=== PATIENT | female | born 1940 | race Caucasian/White ===

== ENCOUNTER 2019-06-04 13:44 | Outpatient (RCR) | payer MEDICARE, SELFPAY | END 2019-07-02 00:01 | LOC: SPT 13:44 | PROVIDERS: Family Provider Family Medicine; Visit Provider Specialist | DX: M75.111 Incomplete rotator cuff tear or rupture of right shoulder, not specified as traumatic (principal) | CPT/HCPCS: 97110 ×3; 97161 ==

== ENCOUNTER 2019-07-03 06:00 | Outpatient (RCR) | payer MEDICARE, SELFPAY | END 2019-07-03 23:00 | disposition home or self-care (01) | LOC: SPT 06:00 | PROVIDERS: Family Provider Family Medicine; PCP Family Medicine; Visit Provider Specialist | DX: M75.101 Unspecified rotator cuff tear or rupture of right shoulder, not specified as traumatic (principal) ==

== ENCOUNTER 2020-05-22 14:15 | Outpatient (CLI) | payer MEDICARE, SELFPAY ==
--- NOTE | 2020-05-22 14:24 | MM_ITS ---
WS: [id number] BILATERAL SCREENING DIGITAL MAMMOGRAM WITH CAD HISTORY: SCREENING COMPARISON: 05/07/2019 and 04/24/2018 Bilateral CC and MLO views submitted. Computer aided detection analyzed. Breast composition: There are scattered areas of fibroglandular density. No suspicious masses, microc alcifications or architectural distortion. Benign calcifications in each breast. MM/[place] [id number] IMPRESSION: BI-RADS: 2-Benign FOLLOW UP: 1 Year Follow-up
== END 2020-05-22 14:16 | disposition home or self-care (01) ==
PROVIDERS: PCP Family Medicine; Visit Provider Family Medicine
DX: Z12.31 Encounter for screening mammogram for malignant neoplasm of breast (principal)
CPT/HCPCS: 77067

== ENCOUNTER 2021-06-09 09:29 | Outpatient (CLI) | payer MEDICARE, SELFPAY ==
--- NOTE | 2021-06-09 09:49 | XR_ITS ---
WS: [id number] Exam: XR DEXA axial skeleton* [id number] Date/Time of Exam: 06/09/2021 9:49 AM Reason For Exam: ASYMPTOMATIC MENOPAUSAL STATE DEXA BONE DENSITOMETRY [place] The L1-L4 bone mineral density measures 1.212 g/cm2. This corresponds to a T score of 0.3 and Z score of 1.8. Left femoral neck bone mineral density measures 1.020 g/cm2. This corresponds to T score of 0.1 and Z score of 1.9. Right femoral neck bone mineral density measures 1.034 g/cm2. This corresponds to a T score of 0.2 an d Z score of 2.0. Mean femoral neck bone mineral density measures 1.027 g/cm2. This corresponds to a T score of 0.2 and Z score of 1.9. XR/XR DEXA axial skeleton* [id number] IMPRESSION: Bone mineral density lies in the normal range. No osteopenia is observed at th is time. Refer to detailed summary.
--- NOTE | 2021-06-09 10:40 | MM_ITS ---
WS: [id number] BILATERAL DIGITAL SCREENING MAMMOGRAPHY WITH CAD CLINICAL INFORMATION: SCREENING HISTORY: Screening mammogram. No current complaints. COMPARISON: May 22, 2020 TECHNIQUE: Bilateral CC and MLO views. FINDINGS: Scattered fibroglandular densities bilaterally. A few punctate calcifications. Vascular calcification . No suspicious focal mass, asymmetry, calcifications, or architectural distortion. No evidence of ma lignancy. MM/[place] [id number] IMPRESSION: BI-RADS: 2-Benign FOLLOW UP: 1 Year Follow-up Recommend return to annual screening mammography.
== END 2021-06-09 09:30 | disposition home or self-care (01) ==
PROVIDERS: PCP Family Medicine; Visit Provider Family Medicine
DX: Z12.31 Encounter for screening mammogram for malignant neoplasm of breast (principal); Z78.0 Asymptomatic menopausal state
CPT/HCPCS: 77067; 77080

== ENCOUNTER 2022-06-10 09:30 | Outpatient (CLI) | payer MEDICARE, SELFPAY ==
--- NOTE | 2022-06-10 09:40 | MM_ITS ---
WS: [id number] BILATERAL SCREENING DIGITAL TOMOSYNTHESIS MAMMOGRAM WITH CAD HISTORY: SCREENING COMPARISON: 06/09/2021, 05/22/2020 Bilateral CC and MLO views with tomosynthesis and synthetic mammography submitted. Computer aided det ection analyzed. Breast composition: There are scattered areas of fibroglandular density. No suspicious masses, microc alcifications or architectural distortion. Benign calcifications in each breast. MM/[place] [id number] IMPRESSION: BI-RADS: 2-Benign FOLLOW UP: 1 Year Follow-up
== END 2022-06-10 09:31 | disposition home or self-care (01) ==
LOC: RAD 09:32
PROVIDERS: PCP Family Medicine; Visit Provider Family Medicine
DX: Z12.31 Encounter for screening mammogram for malignant neoplasm of breast (principal)
CPT/HCPCS: 77063; 77067

== ENCOUNTER 2023-06-12 12:54 | Outpatient (CLI) | payer MEDICARE, SELFPAY ==
--- NOTE | 2023-06-12 13:05 | MM_ITS ---
WS: [id number] VIEWS: MLO and CC views both breasts. 3D digital tomosynthesis is also included in this exam. Comparison made with prior exam of 10/21/2010, 03/14/2012, 05/29/2013, 10/12/2013, 06/16/2015, 7, 03/25/2018, 05/07/2019, 05/22/2020, 06/09/2021, 06/10/2022.. Findings: There was no sign of mass, architectural distortion or suspicious calcification in either breast. The breasts are almost entirely fatty Impression: MM/[place] [id number] BI-RADS: 1-Negative FOLLOW-UP: 1 Year Follow-up This mammogram was also analyzed by the Computer Aided Detection System R2 Imag e Shirt Line Operator.
== END 2023-06-12 12:55 | disposition home or self-care (01) ==
LOC: RAD 12:55
PROVIDERS: PCP Family Medicine; Visit Provider Family Medicine
DX: Z12.31 Encounter for screening mammogram for malignant neoplasm of breast (principal)
CPT/HCPCS: 77063; 77067

== ENCOUNTER 2023-08-03 15:32 | Emergency (ER) | payer MEDICARE, SELFPAY ==
[2023-08-03 15:34] VITALS: BP 188/96; PULSE 73; RESP 18; TEMP 36.8; O2SAT 97; BMI 36.3
--- NOTE | 2023-08-03 15:38 | CTR_ITS ---
PROCEDURE INFORMATION: Exam: CT Maxillofacial Without Contrast Exam date and time: 08/03/2023 3:47 PM Age: 83 years old Clinical indication: Injury or trauma; Fall; Blunt trauma (contusions or hematomas) TECHNIQUE: Imaging protocol: Computed tomography of the face without contrast. Radiation optimization: All CT scans at this facility use at least one of these dose optimization techniques: automated exposure control; mA and/or kV adjustment per patient size (includes targeted exams where dose is matched to clinical indication); or iterative reconstruction. COMPARISON: CT head wo con* [id number] 08/03/2023 3:47 PM RADIATION DOSE METRICS: Total DLP (mGy-cm): 548 FINDINGS: Orbital cavities: There are bilateral intraocular lens implants. Bones/joints: No acute fractures. There are mild degenerative changes at articulation of anterior arch of C1 and dens of C2. Degenerative disc and facet disease of visualized cervical spine is present. Paranasal sinuses: Mild, focal mucosal thickening at right posterior and lateral maxillary sinus suggests chronic sinusitis. Soft tissues: Unremarkable. Vasculature: Bilateral cavernous carotid and vertebral arteries are moderately calcified. Brain: Visualized ventricles along with cerebral sulci are mildly enlarged, reflecting cerebral volume loss. Mild, ill-defined, low attenuation areas at bilateral periventricular and to lesser extent, subcortical white matter suggest microvascular ischemic changes. No intracranial hemorrhage. CT/CT facial bones wo con* [id number] IMPRESSION: 1. No acute fractures. 2. Mild cerebral volume loss. Mild hypodensities at bilateral periventricular and to lesser extent, subcortical white matter, suggesting microvascular ischemic changes. 3. Mild, chronic, right maxillary sinusitis. 4. Bilateral intraocular lens implants. 5. Atherosclerosis.
--- NOTE | 2023-08-03 15:38 | CTR_ITS ---
PROCEDURE INFORMATION: Exam: CT Head Without Contrast Exam date and time: 08/03/2023 3:47 PM Age: 83 years old Clinical indication: Injury or trauma; Fall; Blunt trauma (contusions or hematomas) TECHNIQUE: Imaging protocol: Computed tomography of the head without contrast. Radiation optimization: All CT scans at this facility use at least one of these dose optimization techniques: automated exposure control; mA and/or kV adjustment per patient size (includes targeted exams where dose is matched to clinical indication); or iterative reconstruction. COMPARISON: CT facial bones wo con* [id number] 08/03/2023 3:47 PM RADIATION DOSE METRICS: Total DLP (mGy-cm): 1105 FINDINGS: Brain: Mild, ill-defined, low attenuation areas at bilateral periventricular and to lesser extent, subcortical white matter suggest microvascular ischemic changes. No intracranial hemorrhage. Cerebral ventricles: Ventricles along with cerebral sulci are mildly enlarged, reflecting cerebral volume loss. Paranasal sinuses: Mild, focal mucosal thickening at right posterior maxillary sinus suggests chronic sinusitis. Mastoid air cells: Visualized mastoid air cells are well aerated. Orbital cavities: There are bilateral intraocular lens implants. Bones/joints: Unremarkable. No acute fracture. Soft tissues: Unremarkable. Vasculature: Bilateral cavernous carotid and vertebral arteries are moderately calcified. CT/CT head wo con* [id number] IMPRESSION: 1. Mild cerebral volume loss. Mild hypodensities at bilateral periventricular and to lesser extent, subcortical white matter, suggesting microvascular ischemic changes. 2. Mild, chronic, right maxillary sinusitis. 3. Bilateral intraocular lens implants. 4. Atherosclerosis.
--- NOTE | 2023-08-03 15:38 | CTR_ITS ---
PROCEDURE INFORMATION: Exam: CT Cervical Spine Without Contrast Exam date and time: 08/03/2023 3:47 PM Age: 83 years old Clinical indication: Injury or trauma; Fall TECHNIQUE: Imaging protocol: Computed tomography of the cervical spine without contrast. Radiation optimization: All CT scans at this facility use at least one of these dose optimization techniques: automated exposure control; mA and/or kV adjustment per patient size (includes targeted exams where dose is matched to clinical indication); or iterative reconstruction. COMPARISON: CT facial bones wo con* [id number] 08/03/2023 3:47 PM RADIATION DOSE METRICS: Total DLP (mGy-cm): 200 FINDINGS: Bones/joints: There is loss of cervical lordosis, with mild gentle kyphosis centered at approximately C5. No acute fractures or subluxations to T3/4. Concavities at several endplates of cervical vertebrae, one of which at superior endplate of C7 contains gas, suggest incidental Schmorl's nodes. < 4 mm, oval, well-defined, gas-containing lesion right lamina of T4 vertebra suggests incidental pneumatocyst. There are mild degenerative changes at articulation of anterior arch of C1 and dens of C2. At C2/3, there are mild vertebral osteophytes, without significant canal or neural foraminal narrowing. At C3/4, there is mild posterior disc protrusion/osteophyte complex and mild right facet hypertrophy, without significant canal, but mild bilateral neural foraminal narrowing. At C4/5, there is mild posterior disc protrusion/osteophyte complex and severe right facet hypertrophy, without significant canal, but moderate-severe right neural foraminal narrowing. At C5/6, there is mild posterior disc protrusion/osteophyte complex and moderate right and mild left facet hypertrophy, with mild canal and mild right and mild-moderate left neural foraminal narrowing. At C6/7, there is mild posterior disc protrusion/osteophyte complex and mild bilateral facet hypertrophy, without significant canal or neural foraminal narrowing. At C7/T1, there are vertebral osteophytes and moderate left > right facet hypertrophy, without significant canal or neural foraminal narrowing. Mild degenerative disc and facet disease of visualized upper thoracic spine is present, without significant canal or neural foraminal narrowing. 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 Trachea: Mild calcification within cartilage at wall of right proximal trachea at level of C7/T1 is of no clinical significance. Lungs: Apicoposterior left upper lobe contains a < 4 mm, noncalcified nodule. Mild-moderate, irregular reticular opacities at bilateral apices suggest scars. Thyroid: Right lobe of thyroid contains a < 1.6 cm, low attenuation (Hounsfield units 46) nodule. Vasculature: Left carotid bulb and proximal internal and external carotid arteries and bilateral vertebral arteries are moderately calcified. Left proximal common carotid, right proximal internal carotid, and bilateral subclavian arteries are mildly calcified. Soft tissues: Unremarkable. CT/CT cervical spin wo con* [id number] IMPRESSION: 1. No acute fractures or subluxations to T3/4. Degenerative changes at several levels of cervical spine and upper thoracic spine as described above. 2. < 4 mm, noncalcified nodule apicoposterior left upper lobe. For patients at low risk (minimal or absent history of smoking and of other known risk factors), no routine follow-up is indicated. For patients at high risk (history of smoking or of other known risk factors), consider optional CT Chest at 12 months. (Reference: Moise) 3. <1.6 cm nodule right lobe of thyroid. Follow-up non-emergent thyroid ultrasound is recommended. 4. Atherosclerosis. References: Moise H, et al. Guidelines for Management of Incidental Pulmonary Nodules Detected on CT Images: From the Fleischner Society 2017. Radiology. 2017;284(1):228-243. COMMENTS: Consistent with the [employer] [employer]'s Incidental Findings Committee white paper (J Am Shanna Radiol 2015): In patients aged 35 years and older with an incidental thyroid nodule equal to or greater than 1.[address], MRI or extrathyroidal US, further evaluation with dedicated thyroid US is recommended for patients with normal life expectancy and without comorbidities. For smaller nodules without suspicious features, no further evaluation or follow up is recommended.
--- NOTE | 2023-08-03 15:38 | XRR_ITS ---
PROCEDURE INFORMATION: Exam: XR Left Tibia and Fibula Exam date and time: 08/03/2023 4:12 PM Age: 83 years old Clinical indication: Injury or trauma; Fall; Other: Unknown TECHNIQUE: Imaging protocol: Radiologic exam of the left tibia and fibula. Views: 2 views. COMPARISON: Left ankle radiographs . FINDINGS: Medial malleolus is incompletely visualized on AP view, but was within region filmed on ankle radiographs. Bones/joints: Normal alignment. No acute fractures. Moderate osteoarthritis of navicular-cuneiform joints, as evidenced by dorsal osteophytes, is present. There is mild spurring at anterior aspect of distal tibia. Moderate-large and moderate traction osteophytes at posterior > plantar aspects of calcaneus are evident. Soft tissues: < 3 mm, lucent-centered calcification within soft tissues at distal murrell likely reflects phlebolith. XR/XR tibia fibula LT 2V [id number] IMPRESSION: No acute fractures.
--- NOTE | 2023-08-03 15:38 | XRR_ITS ---
PROCEDURE INFORMATION: Exam: XR Right Shoulder Exam date and time: 08/03/2023 4:22 PM Age: 83 years old Clinical indication: Injury or trauma; Fall; Other: Unknown TECHNIQUE: Imaging protocol: Radiologic exam of the right shoulder. Views: 2 or more views. COMPARISON: CT cervical spin wo con* [id number] 08/03/2023 3:47 PM FINDINGS: Bones/joints: There is mild right mid thoracic scoliosis. No acute fractures or dislocations. There is mild osteoarthritis of glenohumeral joint, as evidenced by small osteophytes. Degenerative disc and facet disease of several levels of cervical spine and degenerative disc disease of mid-lower thoracic spine are partially visualized. Soft tissues: Normal. XR/XR shoulder RT min 2V* [id number] IMPRESSION: No acute fractures or dislocations.
--- NOTE | 2023-08-03 15:38 | XRR_ITS ---
PROCEDURE INFORMATION: Exam: XR Left Ankle Exam date and time: 08/03/2023 4:12 PM Age: 83 years old Clinical indication: Injury or trauma; Fall; Other: Unknown TECHNIQUE: Imaging protocol: Radiologic exam of the left ankle. Views: 3 or more views. COMPARISON: CR (LOW EXM, ) 08/03/2023 4:12 PM FINDINGS: Bones/joints: Normal alignment. No acute fractures or dislocations. Moderate osteoarthritis of navicular-cuneiform joints, as evidenced by dorsal osteophytes, is present. There is mild spurring at anterior aspect of distal tibia and inferior aspect of medial malleolus. Moderate-large and moderate traction osteophytes at posterior > plantar aspects of calcaneus are evident. Soft tissues: < 3 mm, lucent-centered calcification within soft tissues at distal murrell likely reflects phlebolith. Soft tissues at medial malleolus are mildly swollen. XR/XR ankle LT min 3V* [id number] IMPRESSION: No acute fractures or dislocations.
--- NOTE | 2023-08-03 15:40 | W.ED.FALL ---
HPI - Fall General: Chief Complaint: Fall Stated Complaint: fall Time Seen by Provider: 08/03/23 15:34 Source: patient Mode of arrival: ambulatory Limitations: no limitations History of Present Illness: 83-year-old female who came into the ER to see her who is a patient here she had tripped and fell in the waiting room she hit her head she complains of nose pain along with head and neck pain right shoulder pain and left murrell pain. She denies any loss of consciousness patient is currently in a c-collar she rates her pain a 5 out of 10. Associated symptoms-after fall: Reports headache(s) and neck pain; Denies abdominal pain or chest pain Review of Systems Const: Denies: fever(s), chills, body aches or change in appetite Eyes: Denies: blurry vision ENMT: Denies: throat pain or dental pain Card: Denies: chest pain Resp: Denies: dyspnea GI: Denies: abdominal pain, nausea, vomiting or diarrhea Musc: Reports: neck pain and extremity pain; Denies: back pain Neuro: Reports: headache(s) PFSH ED PFSH: Surgical History H/O arthroscopy of left knee Family History Denies family history of Diabetes Cancer Hypertension Stroke Social History Smoking and tobacco/nicotine status: never used tobacco/nicotine Alcohol intake: never Substance/Drug Use: never Physical Exam Const: COMMON NORMALS: no acute distress, patient oriented x3 and healthy appearing HENMT: OTHER: Abrasion noted to bridge of nose Eye: COMMON NORMALS: Equal, round and reactive pupils present and EOMs intact bilaterally PUPIL: Yes Equal, round and reactive pupils present Neck/C-Spine: OTHER: In c-collar Chest: COMMONS NORMALS: normal inspection of the chest and normal palpation of entire chest wall Resp: COMMON NORMALS: normal respiratory effort GI: COMMON NORMALS: Normal to inspection, nondistended, normoactive bowel sounds present, Soft to palpation, non-tender and no masses PALPATION: Yes Soft to palpation Extremity: COMMON NORMALS: full ROM NARRATIVE EXTREMITY EXAM: Tenderness over left shoulder along with tenderness to the left distal leg Neuro: COMMON NORMALS: patient oriented x3, moves all extremities and no focal motor deficits Psych: COMMON NORMALS: mental status grossly normal, Normal thought process present and cooperative THOUGHT PROCESS: Normal thought process present Skin: COMMON NORMALS: no rashes or lesions noted and no wounds GENERAL SKIN EXAM: no rashes or lesions noted Course Vital Signs: Vital signs: Vital Signs Temperature 98.2 F 08/03/23 15:34 Pulse Rate 72 08/03/23 17:31 Respiratory Rate 16 08/03/23 17:31 Blood Pressure 181/86 08/03/23 17:31 Pulse Oximetry 98 08/03/23 17:31 Oxygen Delivery Me thod Room Air 08/03/23 16:37 MDM - Fall Medical Decision Making Patient presents here with fall her imaging here is all normal she is ambulatory here she stable for discharge she is follow-up with PCP and return if worsening. Medical Records I reviewed the patient's medical records. Lab Data I reviewed the patient's lab results. Radiology Impressions Ankle X-Ray 08/03/23 15:38 IMPRESSION: No acute fractures or dislocations. Cervical Spine CT 08/03/23 15:38 IMPRESSION: 1. No acute fractures or subluxations to T3/4. Degenerative changes at several levels of cervical spine and upper thoracic spine as described above. 2. < 4 mm, noncalcified nodule apicoposterior left upper lobe. For patients at low risk (minimal or absent history of smoking and of other known risk factors), no routine follow-up is indicated. For patients at high risk (history of smoking or of other known risk factors), consider optional CT Chest at 12 months. (Reference: Moise) 3. <1.6 cm nodule right lobe of thyroid. Follow-up non-emergent thyroid ultrasound is recommended. 4. Atherosclerosis. References: Moise H, et al. Guidelines for Management of Incidental Pulmonary Nodules Detected on CT Images: From the Fleischner Society 2017. Radiology. 2017;284(1):228-243. COMMENTS: Consistent with the [employer]'s Incidental Findings Committee white paper (J Am Shanna Radiol 2015): In patients aged 35 years and older with an incidental thyroid nodule equal to or greater than 1.[address], MRI or extrathyroidal US, further evaluation with dedicated thyroid US is recommended for patients with normal life expectancy and without comorbidities. For smaller nodules without suspicious features, no further evaluation or follow up is recommended. Face CT 08/03/23 15:38 IMPRESSION: 1. No acute fractures. 2. Mild cerebral volume loss. Mild hypodensities at bilateral periventricular and to lesser extent, subcortical white matter, suggesting microvascular ischemic changes. 3. Mild, chronic, right maxillary sinusitis. 4. Bilateral intraocular lens implants. 5. Atherosclerosis. Head CT 08/03/23 15:38 IMPRESSION: 1. Mild cerebral volume loss. Mild hypodensities at bilateral periventricular and to lesser extent, subcortical white matter, suggesting microvascular ischemic changes. 2. Mild, chronic, right maxillary sinusitis. 3. Bilateral intraocular lens implants. 4. Atherosclerosis. Shoulder X-Ray 08/03/23 15:38 IMPRESSION: No acute fractures or dislocations. Tibia/Fibula X-Ray 08/03/23 15:38 IMPRESSION: No acute fractures. Knee X-Ray 08/03/23 16:14 IMPRESSION: No acute findings. All radiology interpretation(s) finalized by discharge Discharge Plan Discharge Patient Disposition: Home Clinical Impression: Fall, CHI (closed head injury) Condition: Stable Prescriptions: No Action pravastatin 40 mg tablet 40 mg PO QPM citalopram 20 mg tablet See Rx Instructions .ROUTE .COMPLEX Rx Instructions: TAKE ONE-HALF TABLET BY MOUTH EVERY DAY FOR ONE WEEK, THEN increase TO ONE TABLET EVERY DAY (started taking med 08/02/23) lisinopril-hydrochlorothiazide 20-25 mg tablet 0.5 tab PO DAILY multivitamin Tablet 1 tab PO DAILY Discharge Orders: Discharge ED (Routine); Ordered 08/03/23 Ordered By: Tristan Melchor Referrals: Abiola Hopkins MD [Primary Care Provider] - 1-3 days Discharge Diet: Advance as tolerated Discharge Activity: Resume usual activity Patient Instructions: Head Injury (ED), Contusion in Adults (ED) Coding Level of Care Code ED Coupling Machine Operator for June Rosas
--- NOTE | 2023-08-03 16:14 | XRR_ITS ---
PROCEDURE INFORMATION: Exam: XR Right Knee Exam date and time: 08/03/2023 4:19 PM Age: 83 years old Clinical indication: Injury or trauma; Fall; Other: Unknown TECHNIQUE: Imaging protocol: Radiologic exam of the right knee. Views: 3 views. COMPARISON: No relevant prior studies available. FINDINGS: Bones/joints: Normal alignment. No acute fractures or dislocations. No bony abnormalities. Mild osteoarthritis of knee joint, as evidenced by small osteophytes, is present. Soft tissues: < 4 mm, lucent-centered calcification within soft tissues at anterior proximal murrell suggests phleboliths. XR/XR knee RT 3V* [id number] IMPRESSION: No acute findings.
[2023-08-03 16:37] VITALS: BP 186/108; PULSE 64; O2SAT 98
[2023-08-03] MEDS: HYDROcodone-acetaminophen 5-325 mg Tablet 1 TAB PO (17:04)
[2023-08-03 17:31] VITALS: BP 181/86; PULSE 72; RESP 16; O2SAT 98
== END 2023-08-03 17:31 | disposition home or self-care (01) ==
PROVIDERS: Emergency Provider Emergency Medicine; PCP Family Medicine
DX: S09.8XXA Other specified injuries of head, initial encounter (principal); S00.31XA Abrasion of nose, initial encounter; W01.0XXA Fall on same level from slipping, tripping and stumbling without subsequent striking against object, initial encounter; Y92.238 Other place in hospital as the place of occurrence of the external cause
CPT/HCPCS: 70450; 70486; 72125; 73030; 73562; 73590; 73610; 99284

== ENCOUNTER 2024-02-15 15:52 | Outpatient (CLI) | payer MEDICARE, SELFPAY ==
--- NOTE | 2024-02-15 15:59 | XR_ITS ---
WS: [id number] Examination: XR shoulder RT min 2V* [id number] Reason for Exam: Pain in R shoulder Date: February 15, 2024 Comparison: August 03, 2023 Findings: The bone density is diminished. There is no destruction There is no fracture or dislocation Chronic changes at the glenohumeral joint are identified with glenoid and humeral head osteophytes pr esent. XR/XR shoulder RT min 2V* [id number] Impression: Chronic changes are present without fracture or dislocation.
== END 2024-02-15 15:53 | disposition home or self-care (01) ==
LOC: RAD 15:55
PROVIDERS: PCP Family Medicine; Visit Provider Family Medicine
DX: M25.511 Pain in right shoulder (principal)
CPT/HCPCS: 73030

== ENCOUNTER 2024-04-02 13:52 | Outpatient (CLI) | payer MEDICARE, SELFPAY ==
--- NOTE | 2024-04-02 13:55 | XR_ITS ---
WS: [id number] SCREENING DEXA SCAN [employer] CLINICAL INFORMATION: ASYMPTOMATIC MENOPAUSAL STATE COMPARISON: 2020 FINDINGS: The L1-L4 bone mineral density measures 1.198 g/cm2. This corresponds to a T score score of 0.1 and Z score of 1.8. Left femoral neck bone mineral density measures 1.004 g/cm2. This corresponds to a T score of 0.0 and Z score of 1.9. Right femoral neck bone mineral density measures 1.014 g/cm2. This corresponds to a T score 0.1of and Z score of 2.0. Mean femoral neck bone mineral density measures 1.009 g/cm2. This corresponds to a T score of 0.0 and Z score of 1.9. XR/XR DEXA axial skeleton* [id number] IMPRESSION: Normal bone mineralization. Patient's FRAX calculated 10 year probability for major osteoporotic fracture i s 13.4% and osteoporotic hip fracture is 3.5%. Bone mineral density lumbar spine decreased -1.2% Bone mineral density femoral necks decreased -1.8%
== END 2024-04-02 13:53 | disposition home or self-care (01) ==
LOC: RAD 13:53
PROVIDERS: PCP Family Medicine; Visit Provider Family Medicine
DX: Z13.820 Encounter for screening for osteoporosis (principal); Z78.0 Asymptomatic menopausal state
CPT/HCPCS: 77080

== ENCOUNTER 2024-06-13 12:36 | Outpatient (CLI) | payer MEDICARE, SELFPAY ==
--- NOTE | 2024-06-13 | MM_ITS ---
WS: [id number] BILATERAL SCREENING DIGITAL TOMOSYNTHESIS MAMMOGRAM WITH CAD HISTORY: ANNUAL SCREENING COMPARISON: 06/12/2023, 06/10/2022 Bilateral CC and MLO views with tomosynthesis and synthetic mammography submitted. Computer aided det ection analyzed. Breast composition: There are scattered areas of fibroglandular density. No suspicious masses, microc alcifications or architectural distortion. Benign calcifications in each breast. Lymph node posterior RIGHT breast against the pectoralis muscle. MM/MM scr BI tomosynthesis [id number] IMPRESSION: BI-RADS: 2 - Benign. FOLLOW UP: 1 Year Follow-up
== END 2024-06-13 12:37 | disposition home or self-care (01) ==
LOC: RAD 12:37
PROVIDERS: PCP Family Medicine; Visit Provider Family Medicine
DX: Z12.31 Encounter for screening mammogram for malignant neoplasm of breast (principal); R92.323 Mammographic fibroglandular density, bilateral breasts; R92.1 Mammographic calcification found on diagnostic imaging of breast
CPT/HCPCS: 77063; 77067

== ENCOUNTER → 2024-07-30 07:54 | Outpatient (BNVA) | payer MEDICARE, SELFPAY | PROVIDERS: PCP Family Medicine; Visit Provider Nurse Practitioner Family | DX: L30.9 Dermatitis, unspecified (principal); L57.8 Other skin changes due to chronic exposure to nonionizing radiation; L81.4 Other melanin hyperpigmentation | CPT/HCPCS: 99203 ==

== ENCOUNTER 2024-10-29 12:45 | Oncology outpatient (recurring) (ONCR) | payer MEDICARE, SELFPAY ==
[2024-10-14 14:40] LABS: Basophils # 0.1 10^3/uL (0.0-0.1); Basophils % 1.2 %; Eosinophils # 0.2 10^3/uL (0.0-0.8); Hematocrit 34.1 % (36-47); Lymphocytes # 1.6 10^3/uL (0.8-4.8); Lymphocytes % 27.3 %; Mean Corpuscular HGB Conc 32.6 g/dL (30-55); Mean Corpuscular Hemoglobin 31.3 pg (27-33); Mean Corpuscular Volume 96.1 fl (85-98); Mean Platelet Volume 11.4 fL (7.4-10.4); Monocytes # 0.8 10^3/uL (0.2-0.9); Monocytes % 12.7 %; Neutrophils # 3.32 10^3/uL (1.8-7.7); Neutrophils % 55.6 %; Nucleated Red Blood Cells % 0 %; Platelet Count 190 10^3/cmm (157-399); Red Blood Count 3.55 10^6/uL (3.85-5.65); Red Cell Distribution Width 14.8 % (12.1-15.1); White Blood Count 5.97 10^3/uL (3.29-11.43)
[2024-10-14 14:58] LABS: Alanine Aminotransferase 10 U/L (0-33); Albumin Level 3.8 g/dL (3.5-5.2); Alkaline Phosphatase 57 U/L (35-105); Anion Gap 13.7 (5-19); Aspartate Amino Transferase 17 U/L (0-32); Blood Urea Nitrogen 16 mg/dL (8-23); Calcium 8.8 mg/dL (8.5-10.5); Carbon Dioxide 27 mmol/L (22-29); Chloride 102 mmol/L (98-107); Globulin 2.2 g/dL (1.3-4.6); Glucose 108 mg/dL (65-115); Lactate Dehydrogenase 190 U/L (135-214); Osmolality Calculated 290 mOsm/kg (285-295); Potassium 3.7 mmol/L (3.5-5.1); Sodium 139 mmol/L (136-145); Total Bilirubin 0.3 mg/dL (0.15-1.2)
[2024-10-29 13:22] LABS: Basophils % 0.6 %; Eosinophils # 0.1 10^3/uL (0.0-0.8); Eosinophils % 1.3 %; Hematocrit 34.6 % (36-47); Lymphocytes # 1.2 10^3/uL (0.8-4.8); Lymphocytes % 18.5 %; Mean Corpuscular HGB Conc 34.4 g/dL (30-55); Mean Corpuscular Hemoglobin 32.8 pg (27-33); Mean Corpuscular Volume 95.3 fl (85-98); Mean Platelet Volume 11.7 fL (7.4-10.4); Monocytes # 0.7 10^3/uL (0.2-0.9); Neutrophils # 4.63 10^3/uL (1.8-7.7); Neutrophils % 69.3 %; Nucleated Red Blood Cells % 0 %; Platelet Count 187 10^3/cmm (157-399); Red Blood Count 3.63 10^6/uL (3.85-5.65); Red Cell Distribution Width 13.9 % (12.1-15.1); White Blood Count 6.69 10^3/uL (3.29-11.43)
[2024-10-29 13:37] LABS: Alanine Aminotransferase 9 U/L (0-33); Albumin Level 3.9 g/dL (3.5-5.2); Alkaline Phosphatase 65 U/L (35-105); Anion Gap 14.8 (5-19); Aspartate Amino Transferase 19 U/L (0-32); Blood Urea Nitrogen 14 mg/dL (8-23); Calcium 9.1 mg/dL (8.5-10.5); Carbon Dioxide 31 mmol/L (22-29); Chloride 89 mmol/L (98-107); Creatinine Clr Calc Pharmacy 40.6582; Globulin 2.3 g/dL (1.3-4.6); Glucose 82 mg/dL (65-115); Osmolality Calculated 272 mOsm/kg (285-295); Potassium 3.8 mmol/L (3.5-5.1); Sodium 131 mmol/L (136-145); Total Bilirubin 0.4 mg/dL (0.15-1.2); Total Protein 6.2 g/dL (6.6-8.7)
[2024-10-29 13:45] LABS: Lactate Dehydrogenase 197 U/L (135-214)
[2024-10-29 13:53] LABS: Slide Review Slide Review Perform
== END 2024-10-30 23:59 | disposition home or self-care (01) ==
PROVIDERS: PCP Family Medicine; Visit Provider Internal Medicine Medical Oncology
DX: Z53.9 Procedure and treatment not carried out, unspecified reason (principal); C91.10 Chronic lymphocytic leukemia of B-cell type not having achieved remission; C79.32 Secondary malignant neoplasm of cerebral meninges; D64.9 Anemia, unspecified; G62.9 Polyneuropathy, unspecified; Z79.899 Other long term (current) drug therapy; Z79.891 Long term (current) use of opiate analgesic
CPT/HCPCS: 36415; 80053; 83615; 85025; 99205; 99213; 99214

== ENCOUNTER 2024-11-12 12:26 | Oncology outpatient (recurring) (ONCR) | payer MEDICARE, SELFPAY ==
[2024-11-12 12:49] LABS: Basophils # 0.1 10^3/uL (0.0-0.1); Basophils % 0.9 %; Eosinophils # 0.1 10^3/uL (0.0-0.8); Eosinophils % 1.3 %; Hematocrit 34.1 % (36-47); Lymphocytes # 1.5 10^3/uL (0.8-4.8); Lymphocytes % 19.7 %; Mean Corpuscular HGB Conc 32.8 g/dL (30-55); Mean Corpuscular Hemoglobin 31.1 pg (27-33); Mean Corpuscular Volume 94.7 fl (85-98); Mean Platelet Volume 11.2 fL (7.4-10.4); Monocytes # 0.8 10^3/uL (0.2-0.9); Monocytes % 10.1 %; Neutrophils % 67.6 %; Nucleated Red Blood Cells % 0 %; Platelet Count 192 10^3/cmm (157-399); Red Cell Distribution Width 13.7 % (12.1-15.1); White Blood Count 7.83 10^3/uL (3.29-11.43)
[2024-11-12 13:11] LABS: Alanine Aminotransferase 9 U/L (0-33); Albumin Level 3.9 g/dL (3.5-5.2); Alkaline Phosphatase 60 U/L (35-105); Aspartate Amino Transferase 17 U/L (0-32); Blood Urea Nitrogen 15 mg/dL (8-23); Calcium 8.9 mg/dL (8.5-10.5); Carbon Dioxide 23 mmol/L (22-29); Chloride 91 mmol/L (98-107); Globulin 2.2 g/dL (1.3-4.6); Glucose 72 mg/dL (65-115); Osmolality Calculated 269 mOsm/kg (285-295); Sodium 130 mmol/L (136-145); Total Bilirubin 0.3 mg/dL (0.15-1.2); Total Protein 6.1 g/dL (6.6-8.7)
== END 2024-11-30 23:59 | disposition home or self-care (01) ==
PROVIDERS: PCP Family Medicine; Visit Provider Internal Medicine Medical Oncology
DX: C91.10 Chronic lymphocytic leukemia of B-cell type not having achieved remission (principal); C70.1 Malignant neoplasm of spinal meninges; R51.9 Headache, unspecified; Z79.899 Other long term (current) drug therapy; Z79.891 Long term (current) use of opiate analgesic; G62.9 Polyneuropathy, unspecified
CPT/HCPCS: 36415; 80053; 85025; 99213

== ENCOUNTER 2024-12-12 14:08 | Emergency (ER) | payer MEDICARE, SELFPAY ==
--- NOTE | 2024-12-12 14:11 | ED_ITS ---
HPI - Fall General: Chief Complaint: Fall Stated Complaint: fall - low/middle back pain Time Seen by Provider: 12/12/24 14:09 Source: patient and EMS Mode of arrival: EMS Limitations: no limitations History of Present Illness: Patient is a nice 84-year-old female presents to ED today via EMS following a fall. She states she was at [facility] when she became dizzy and states she fell backwards onto her tailbone and then struck her head. She states the dizziness has not anything new for her and gets this often-positional. She can often feel it coming on and knows to slowly lower to the ground. She is not on anti-coagulation. She does have a history of leukemia and sees [facility] oncology as well as [facility]. At time of my examination she feels fine . Denies chest pain, shortness of breath, difficulty breathing, palpitations. Dizziness has resolved. Vitals are stable upon arrival. MD complaint: fall Onset (ago): minute(s) Fall from: standing Fall witnessed: yes, by bystander Place fall occurred: street (outside of [facility]) Loss of consciousness: None Prolonged down time: no Symptoms prior to fall: dizziness (chronic per patient) Location of injury: head and back Associated symptoms-after fall: Reports no associated symptoms; Denies abdominal pain, chest pain, confusion, difficulty walking, headache(s) or neck pain Related Data Home Medications ?Medication ?Instructions ?Recorded ?Confirmed lisinopril 20 0.5 tab PO DAILY 08/03/23 mg-hydrochlorothiazide 25 mg tablet multivitamin 1 tab PO DAILY 08/03/2310/31 Previous Rx's ?Medication ?Instructions ?Recorded acyclovir 400 mg tablet 400 mg PO BID #60 tabs 10/01 carbamazepine 100 mg 100 mg PO DAILY #30 tabs 07/27 tablet,extended release,12 hr duloxetine 20 mg capsule,delayed 20 mg PO QDAY #30 cap s 10/01/24 release pantoprazole 40 mg tablet,delayed 40 mg PO DAILY #30 t abs 10/01/24 release pravastatin 20 mg tablet 20 mg PO DAILY #30 tabs 07/27 pregabalin 50 mg capsule 50 mg PO DAILY #30 caps 07/27 oxycodone 5 mg capsule 5 mg PO Q6H PRN pain 30 days #45 10/04/24 caps zanubrutinib 80 mg capsule 160 mg (2 x 80 mg) PO BID 3 0 days 11/21/24 (Brukinsa) #120 caps Allergies Allergy/AdvReac Type Severity Reaction Status Date / Time niacin Allergy Severe ALGY-Difficulty Verified 11/12/24 13:08 Breathing Review of Systems Const: Denies: fever(s), chills, body aches, fatigue or malaise Eyes: Denies: change in vision, blurry vision, photophobia, floaters or seeing flashes Card: Denies: chest pain, palpitations, irregular heart rhythm, edema, swelling of feet/ankles, syncope, pre-syncope or dyspnea on exertion Resp: Denies: dyspnea GI: Denies: abdominal pain, nausea or vomiting : Denies: flank pain or dysuria Musc: Reports: back pain ( tailbone pain); Denies: neck pain, extremity pain, extremity swelling, joint pain or joint swelling Neuro: Reports: dizziness (resolved now); Denies: headache(s), numbness in extremities, weakness in extremities, sensory changes, lack of coordination, difficulty walking, confusion, behavioral changes, Slurred speech present, difficulty communicating thoughts or seizure- like activity PFSH ED PFSH: Surgical History H/O arthroscopy of left knee Family History Denies family history of Diabetes Cancer Hypertension Stroke Social History Smoking and tobacco/nicotine status: never used tobacco/nicotine Alcohol intake: never Substance/Drug Use: never Physical Exam Const: COMMON NORMALS: no acute distress, average body habitus, patient oriented x3, no limitations, healthy appearing, alert and well nourished GENERAL APPEARANCE: cooperative ORIENTATION/CONSCIOUSNESS: Yes awake, Yes oriented to person, Yes oriented to place and Yes oriented to time HENMT: COMMON NORMALS: normocephalic, atraumatic and TM's normal bilaterally HEAD & SCALP: normal to inspection, normocephalic and atraumatic; no Ivey's sign, no hematoma and no raccoon eyes FACE & SINUS: normal facial exam TYMPANIC MEMBRANE: TM's normal bilaterally MOUTH: other (no intraoral injuries noted) Eye: COMMON NORMALS: Equal, round and reactive pupils present and EOMs intact bilaterally GENERAL EYE: appearance normal, both eyes and all related structures and normal light reflex PUPIL: Yes Equal, round and reactive pupils present DIRECT OPHTHALMOSCOPY: Yes normal light reflex Neck/C-Spine: COMMON NORMALS: full ROM GENERAL: Yes normal visual inspection CERVICAL SPINE: Yes cervical ROM normal, No pain with cervical ROM, No Cervical spine tenderness, No step off deformity and No Paracervical muscle tenderness Chest: COMMONS NORMALS: normal inspection of the chest and normal palpation of entire chest wall Resp: COMMON NORMALS: normal respiratory effort and clear to auscultation b ilaterally AUSCULTATION: clear to auscultation bilaterally Cardio: COMMON NORMALS: regular rate and regular rhythm RATE: regular rate RHYTHM: regular rhythm GI: COMMON NORMALS: Normal to inspection, nondistended, normoactive bowel sounds present, Soft to palpation, non-tender, No hepatosplenomegaly present and no masses INSPECTION: Yes normal to inspection and No abdominal wall ecc hymosis AUSCULTATION: Yes normoactive bowel sounds PALPATION: Yes Soft to palpation and Yes No hepatosplenomegaly present Back/Pelvis: COMMON NORMALS: thoracic and lumbar spine normal to inspection, no thoracic nor lumbar tenderness, thoraco-lumbar ROM normal and straight leg raise negative bilaterally THORACIC SPINE/UPPER BACK: No thoracic spinal tenderness LUMBAR SPINE/LOWER BACK: No lumbar spinal tenderness PELVIS: Yes buttocks normal SACROILIAC JOINTS: Yes SI joints normal SACRUM: no swelling COCCYX: no swelling and Coccyx tenderness present Extremity: COMMON NORMALS: normal to inspection and full ROM GENERAL: Yes normal exam except as noted Neuro: VICTOR M COMA SCALE: document GCS findings Victor M coma scale eye opening: Spontaneous [place] coma scale verbal response: Orientated [place] coma scale motor response: Obey commands Victor M coma scale total score: 15 COMMON NORMALS: patient oriented x3, CN's II-XII intact bilaterally, moves all extremities, no focal motor deficits, no sensory deficits noted and gait normal SENSORIUM/ORIENTATION: Yes alert, Yes oriented to person, Yes oriented to place and Yes oriented to time SPEECH: speech normal GAIT: Yes Normal gait present Skin: COMMON NORMALS: no rashes or lesions noted GENERAL SKIN EXAM: no rashes or lesions noted TRAUMA: no lacerations or abrasions Course Vital Signs: Vital signs: Vital Signs Temperature 98.1 F 12/12/24 14:12 Pulse Rate 89 12/12/24 14:12 Respiratory Rate 18 12/12/24 14:12 Blood Pressure 122/70 12/12/24 14:12 Pulse Oximetry 95 12/12/24 14:12 Oxygen Delivery Me thod Room Air 12/12/24 14:12 MDM - Fall Medical Decision Making CT head and XR of her sacrum/coccyx are unremarkable. Patient ambulated here in the emergency department without difficulty or assistance. She will be allowed discharge. Lab Data Radiology Impressions Head CT 12/12/24 14:16 IMPRESSION: No acute intracranial findings. Sacrum and Coccyx X-Ray 12/12/24 14:16 Impression: Negative sacrum and coccyx. All radiology interpretation(s) finalized by discharge Discharge Plan Discharge Patient Disposition: Home Clinical Impression: Fall, Minor head injury, Coccyx contusion Condition: Stable Prescriptions: No Action pantoprazole 40 mg tablet,delayed release (DR/EC) 40 mg PO DAILY Qty: 30 3RF carbamazepine 100 mg tablet extended release 12 hr 100 mg PO DAILY Qty: 30 3RF pregabalin 50 mg capsule 50 mg PO DAILY Qty: 30 3RF pravastatin 20 mg tablet 20 mg PO DAILY Qty: 30 3RF duloxetine 20 mg capsule,delayed release(DR/EC) 20 mg PO QDAY Qty: 30 3RF acyclovir 400 mg tablet 400 mg PO BID Qty: 60 3RF oxycodone 5 mg capsule 5 mg PO Q6H PRN (Reason: pain) 30 Days Qty: 45 0RF Brukinsa 80 mg capsule 160 mg PO BID 30 Days Qty: 120 0RF lisinopril-hydrochlorothiazide 20-25 mg tablet 0.5 tab PO DAILY multivitamin Tablet 1 tab PO DAILY Discharge Orders: Discharge ED (Routine); Ordered 12/12/24 Ordered By: Miladis Marinelli Referrals: Erica Beltre FNP [Primary Care Provider, Nurse Practitioner] Activity Restrictions/Additional Instructions: As we discussed, ridging of your head and tailbone were unremarkable. You may use [id number] medications such as Tylenol and ibuprofen to treat any discomforts as well as ice and heat. You may follow-up with primary care next week if symptoms persist/are not improving. You may return to the emergency department at anytime for any further concerns you may have. Print Language: Spanish Coding Level of Care Code ED Medical Staff Coordinator for June Rosas
[2024-12-12 14:12] VITALS: BP 122/70; PULSE 89; RESP 18; TEMP 36.7; O2SAT 95; BMI 29.9
--- NOTE | 2024-12-12 14:16 | XR_ITS ---
WS: [id number] Sacrum and coccyx, 3 views, 12/12/2024 Clinical Data: fall Comparison: CT chest abdomen pelvis, 12/09/2024 Findings: No fractures or dislocations are seen. The SI joints and pubic symphysis are unremarkable. No bone destruction or erosion is seen. There is oral contrast noted in the descending and rectosigmoid colon. XR/XR sacrum coccyx min 2V [id number] Impression: Negative sacrum and coccyx.
--- NOTE | 2024-12-12 14:16 | CTR_ITS ---
PROCEDURE INFORMATION: Exam: CT Head Without Contrast Exam date and time: 12/12/2024 2:34 PM Age: 84 years old Clinical indication: Injury or trauma; Fall; Blunt trauma (contusions or hematomas); Consciousness not specified; HX of cll cancer TECHNIQUE: Imaging protocol: Computed tomography of the head without contrast. Radiation optimization: All CT scans at this facility use at least one of these dose optimization techniques: automated exposure control; mA and/or kV adjustment per patient size (includes targeted exams where dose is matched to clinical indication); or iterative reconstruction. COMPARISON: MR head wo/w con [id number] 12/10/2024 1:12 PM RADIATION DOSE METRICS: Total DLP (mGy-cm): 1023.78 FINDINGS: Brain: No intracranial hemorrhage. There is global parenchymal volume loss. Periventricular white matter hypoattenuation is nonspecific but most likely due to small vessel disease. No evidence of acute territorial infarct or cerebral edema. No mass effect or midline shift. Cerebral ventricles: Prominent ventricles likely secondary to volume loss. Paranasal sinuses: Visualized sinuses are unremarkable. No fluid levels. Mastoid air cells: Small amount of fluid right mastoid. Bones: Unremarkable. No acute fracture. Soft tissues: Unremarkable. CT/CT head wo con* [id number] IMPRESSION: No acute intracranial findings.
--- NOTE | 2024-12-12 14:19 | ECG_ITS ---
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 Measurements Intervals [place] Rate: 72 P: 75 MN: 163 QRS: 66 QRSD: 89 T: 55 QT: 413 QTc: 452 Interpretive Statements SINUS RHYTHM Compared to ECG 01/13/2017 13:28:40 No significant changes Electronically Signed On 12-13-2024 15:09:16 CDT by Abdifatah Pope M.D. [email or web address]
[2024-12-12 15:41] VITALS: BP 120/77; PULSE 66; O2SAT 97
== END 2024-12-12 15:41 | disposition home or self-care (01) ==
PROVIDERS: Emergency Provider Physician Assistant; PCP Nurse Practitioner Family
DX: S09.90XA Unspecified injury of head, initial encounter (principal); S30.0XXA Contusion of lower back and pelvis, initial encounter; Z85.6 Personal history of leukemia; Z79.899 Other long term (current) drug therapy; W18.30XA Fall on same level, unspecified, initial encounter; Y92.488 Other paved roadways as the place of occurrence of the external cause
CPT/HCPCS: 70450; 72220; 93005; 99284

== ENCOUNTER 2024-12-17 13:35 | Oncology outpatient (recurring) (ONCR) | payer MEDICARE, SELFPAY ==
[2024-12-09] MEDS: iohexol 350 mg/mL 500 mL Btl (per mL) PO (13:00)
--- NOTE | 2024-12-09 13:00 | CT_ITS ---
WS: [id number] CT CHEST, ABDOMEN AND PELVIS WITH CONTRAST HISTORY: CLL TECHNIQUE: Contiguous 5 mm axial imaging performed through the chest, abdomen and pelvis with IV contrast, oral contrast has been provided. Coronal and sagittal reformats chest. Coronal and sagittal reformats through the abdomen and pelvis. All CT scans at [facility] use at least one of these dose optimization techniques: automated exposure control; mA and/or kV adjustment per patient size (includes targeted exams where dose is matched to clinical indication); or iterative reconstruction. CONTRAST: Omnipaque 350; 100 mL IV. DLP: 640.78 mGy.cm COMPARISON: 01/13/[address]: No pulmonary mass, nodule or pneumonia. Lungs are well aerated. There is mild pleural thickening and fibrosis at the apices, stable since 2017. Mild atherosclerosis aorta. No aneurysmal dilatation. Normal size pulmonary artery and heart. No pericardial or pleural effusions. No pathologically enlarged mediastinal or hilar lymph nodes. Small, subcentimeter RIGHT thyroid nodule. No axillary lymph nodes. No chest wall mass. Mild increase in thoracic kyphosis. No destructive bone lesions. Abdomen CT: Normal size liver and spleen. No parenchymal lesions. Normal portal vein. Normal gallbladder. Splenule at the splenic hilum. Common bile duct is measuring slightly enlarged at 8 mm. No obstructing abnormality is identified. Normal adrenal glands. LEFT kidney is measuring low normal at 8.6 mm. There is no obstruction or mass. Mild cortical thinning. RIGHT kidney 9.4 cm in length. No mass or obstruction. Moderate atherosclerotic plaque within the aorta. Very small caliber celiac axis with mild stenosis proximally. SMA is normal. No GI tract obstruction. No colitis or enteritis. No mesenteric lymph nodes or edema. No mesenteric or retroperitoneal enlarged lymph nodes. Pelvic CT: No ascites. No adenopathy. Urinary bladder is not distended. Uterus is atrophic as expected for age. Increase in lumbar lordosis. Facet joint arthropathy is most significant at L5- S1. No lytic or sclerotic bone lesions. CT/CT chest abdpel w/*[id number] IMPRESSION: 1. No significant lymphadenopathy within the chest, abdomen or pelvis. 2. No pulmonary nodule or pneumonia. 3. No splenomegaly or hepatomegaly. 4. No ascites. 5. Common bile duct is measuring just slightly greater in size than expected. May be related to aging. No mass or obstructing calcification identified. 6. Small caliber but patent celiac axis due to atherosclerotic disease.
[2024-12-09] MEDS: iohexol 350 mg/mL 500 mL Btl (per mL) IV (13:35)
--- NOTE | 2024-12-10 13:00 | MR_ITS ---
WS: [id number] MRI HEAD WITH CONTRAST TECHNIQUE: Sagittal T1, T2 axial, T2 axial FLAIR, axial susceptibility weighted imaging, axial diffusion weighted images, and coronal T2 images were obtained. Pre and post-T1 axial and post T1 coronal images. ADC and FSPGR images. CLINICAL INFORMATION: CLL COMPARISON: None. FINDINGS: No evidence of restricted diffusion to suggest acute ischemia. Moderate small vessel changes with moderate parenchymal volume loss. Normal posterior fossa. Normal vascular flow voids at the skull base. No extra-axial fluid collections. Paranasal sinuses are well aerated. Mild mucosal thickening in the mastoid air cells. No hemosiderin on the susceptibly weighted images. Normal optic chiasm and pituitary infundibulum. No abnormal gadolinium enhancement. Normal dural venous sinuses. No other suspicious findings. MR/MR head wo/w con [id number] IMPRESSION: 1. No evidence of restricted diffusion to suggest acute ischemia. 2. Moderate small vessel changes with moderate parenchymal volume loss. 3. No abnormal gadolinium enhancement. 4. No hemosiderin on susceptibility-weighted images.
[2024-12-10] MEDS: gadobenate dimeglumine 20 mL vial 14 ML IV (13:39)
[2024-12-17 13:51] LABS: Basophils # 0.1 10^3/uL (0.0-0.1); Basophils % 0.8 %; Eosinophils # 0.2 10^3/uL (0.0-0.8); Eosinophils % 2.4 %; Hematocrit 31.6 % (36-47); Lymphocytes # 1.5 10^3/uL (0.8-4.8); Lymphocytes % 22.8 %; Mean Corpuscular HGB Conc 33.9 g/dL (30-55); Mean Corpuscular Hemoglobin 32.1 pg (27-33); Mean Corpuscular Volume 94.9 fl (85-98); Mean Platelet Volume 11.6 fL (7.4-10.4); Monocytes # 0.8 10^3/uL (0.2-0.9); Monocytes % 11.5 %; Neutrophils # 4.11 10^3/uL (1.8-7.7); Neutrophils % 61.9 %; Nucleated Red Blood Cells % 0 %; Platelet Count 232 10^3/cmm (157-399); Red Blood Count 3.33 10^6/uL (3.85-5.65); Red Cell Distribution Width 13.6 % (12.1-15.1); White Blood Count 6.63 10^3/uL (3.29-11.43)
[2024-12-17 14:11] LABS: Alanine Aminotransferase 7 U/L (0-33); Albumin Level 3.9 g/dL (3.5-5.2); Alkaline Phosphatase 61 U/L (35-105); Anion Gap 16.1 (5-19); Aspartate Amino Transferase 14 U/L (0-32); Blood Urea Nitrogen 25 mg/dL (8-23); Calcium 9.1 mg/dL (8.5-10.5); Carbon Dioxide 23 mmol/L (22-29); Chloride 95 mmol/L (98-107); Globulin 2.1 g/dL (1.3-4.6); Glucose 100 mg/dL (65-115); Lactate Dehydrogenase 168 U/L (135-214); Osmolality Calculated 274 mOsm/kg (285-295); Potassium 4.1 mmol/L (3.5-5.1); Sodium 130 mmol/L (136-145); Total Bilirubin 0.3 mg/dL (0.15-1.2); Uric Acid 4.7 mg/dL (2.4-5.7)
[2024-12-17] MEDS: sodium chloride 0.9% 1,000 ML 999 ML IV (15:00)
[2024-12-17 16:00] VITALS: BP 154/80; PULSE 80; RESP 18; TEMP 36.6; O2SAT 94
== END 2024-12-30 23:59 | disposition home or self-care (01) ==
PROVIDERS: PCP Nurse Practitioner Family; Visit Provider Internal Medicine
DX: Z53.9 Procedure and treatment not carried out, unspecified reason; C91.10 Chronic lymphocytic leukemia of B-cell type not having achieved remission; C70.1 Malignant neoplasm of spinal meninges; R51.9 Headache, unspecified; D64.9 Anemia, unspecified; N28.9 Disorder of kidney and ureter, unspecified; Z79.899 Other long term (current) drug therapy; R26.81 Unsteadiness on feet
CPT/HCPCS: 36415; 70553; 71260; 74177; 80053; 83615; 84550; 85025; 96360; 99214; A9577; J7030

== ENCOUNTER 2025-01-14 15:00 | Oncology outpatient (recurring) (ONCR) | payer MEDICARE, SELFPAY ==
[2024-12-31 14:04] LABS: Hematocrit 29.5 % (36-47); Hemoglobin 9.90 g/dL (11.27-16.99); Mean Corpuscular HGB Conc 33.6 g/dL (30-55); Mean Corpuscular Hemoglobin 31.7 pg (27-33); Mean Corpuscular Volume 94.6 fl (85-98); Nucleated Red Blood Cells % 0 %; Platelet Count 190 10^3/cmm (157-399); Red Blood Count 3.12 10^6/uL (3.85-5.65); White Blood Count 5.75 10^3/uL (3.29-11.43)
[2024-12-31 14:45] LABS: Alanine Aminotransferase 9 U/L (0-33); Albumin Level 3.9 g/dL (3.5-5.2); Alkaline Phosphatase 62 U/L (35-105); Anion Gap 19.2 (5-19); Aspartate Amino Transferase 23 U/L (0-32); Blood Urea Nitrogen 16 mg/dL (8-23); Calcium 8.7 mg/dL (8.5-10.5); Carbon Dioxide 21 mmol/L (22-29); Chloride 98 mmol/L (98-107); Creatinine Clr Calc Pharmacy 39.5290; Ferritin 247 ng/mL (15-150); Globulin 2.3 g/dL (1.3-4.6); Glucose 97 mg/dL (65-115); Iron 56 ug/dL (37-145); Osmolality Calculated 279 mOsm/kg (285-295); Potassium 4.2 mmol/L (3.5-5.1); Sodium 134 mmol/L (136-145); Thyroid Stimulating Hormone 2.65 uIU/mL (0.27-4.20); Total Iron Binding Capacity 204 mcg/dl; Total Protein 6.2 g/dL (6.6-8.7); Unsaturated Iron Binding 148 ug/dL (112-347); Vitamin B12 1288 pg/mL (232-1245)
[2025-01-14 15:04] LABS: Hematocrit 30.6 % (36-47); Hemoglobin 10.10 g/dL (11.27-16.99); Mean Corpuscular HGB Conc 33.0 g/dL (30-55); Mean Corpuscular Hemoglobin 31.8 pg (27-33); Mean Corpuscular Volume 96.2 fl (85-98); Nucleated Red Blood Cells % 0 %; Platelet Count 180 10^3/cmm (157-399); Red Blood Count 3.18 10^6/uL (3.85-5.65); White Blood Count 5.28 10^3/uL (3.29-11.43)
[2025-01-14 15:21] LABS: Alanine Aminotransferase 13 U/L (0-33); Albumin Level 4.0 g/dL (3.5-5.2); Alkaline Phosphatase 67 U/L (35-105); Anion Gap 16.2 (5-19); Aspartate Amino Transferase 25 U/L (0-32); Blood Urea Nitrogen 14 mg/dL (8-23); Calcium 8.9 mg/dL (8.5-10.5); Carbon Dioxide 24 mmol/L (22-29); Chloride 101 mmol/L (98-107); Creatinine Clr Calc Pharmacy 35.4583; Globulin 2.1 g/dL (1.3-4.6); Glucose 90 mg/dL (65-115); Osmolality Calculated 284 mOsm/kg (285-295); Potassium 4.2 mmol/L (3.5-5.1); Sodium 137 mmol/L (136-145); Total Protein 6.1 g/dL (6.6-8.7)
== END 2025-01-30 23:59 | disposition home or self-care (01) ==
PROVIDERS: PCP Nurse Practitioner Family; Visit Provider Internal Medicine Medical Oncology
DX: Z53.9 Procedure and treatment not carried out, unspecified reason; C91.10 Chronic lymphocytic leukemia of B-cell type not having achieved remission; Z79.899 Other long term (current) drug therapy
CPT/HCPCS: 36415; 80053; 82607; 82728; 82746; 83540; 83550; 84443; 85025; 99214

== ENCOUNTER 2025-02-11 13:34 | Oncology outpatient (recurring) (ONCR) | payer MEDICARE, SELFPAY ==
[2025-02-11 14:07] LABS: Hematocrit 31.6 % (36-47); Hemoglobin 10.50 g/dL (11.27-16.99); Mean Corpuscular HGB Conc 33.2 g/dL (30-55); Mean Corpuscular Hemoglobin 32.4 pg (27-33); Mean Corpuscular Volume 97.5 fl (85-98); Nucleated Red Blood Cells % 0 %; Platelet Count 188 10^3/cmm (157-399); Red Blood Count 3.24 10^6/uL (3.85-5.65); White Blood Count 3.98 10^3/uL (3.29-11.43)
[2025-02-11 14:29] LABS: Alanine Aminotransferase 12 U/L (0-33); Albumin Level 4.1 g/dL (3.5-5.2); Alkaline Phosphatase 68 U/L (35-105); Anion Gap 16.7 (5-19); Aspartate Amino Transferase 25 U/L (0-32); Blood Urea Nitrogen 25 mg/dL (8-23); Calcium 9.1 mg/dL (8.5-10.5); Carbon Dioxide 24 mmol/L (22-29); Chloride 102 mmol/L (98-107); Creatinine Clr Calc Pharmacy 42.5500; Ferritin 135 ng/mL (15-150); Globulin 2.1 g/dL (1.3-4.6); Glucose 89 mg/dL (65-115); Iron 41 ug/dL (37-145); Osmolality Calculated 292 mOsm/kg (285-295); Potassium 3.7 mmol/L (3.5-5.1); Sodium 139 mmol/L (136-145); Total Iron Binding Capacity 237 mcg/dl; Total Protein 6.2 g/dL (6.6-8.7); Unsaturated Iron Binding 196 ug/dL (112-347)
== END 2025-03-02 23:59 | disposition home or self-care (01) ==
PROVIDERS: PCP Nurse Practitioner Family; Visit Provider Internal Medicine Medical Oncology
DX: C91.10 Chronic lymphocytic leukemia of B-cell type not having achieved remission (principal); R51.9 Headache, unspecified; D64.9 Anemia, unspecified; R03.0 Elevated blood-pressure reading, without diagnosis of hypertension; R53.83 Other fatigue; Z79.899 Other long term (current) drug therapy
CPT/HCPCS: 36415; 80053; 82728; 82746; 83540; 83550; 85025; 99214

== ENCOUNTER 2025-03-13 10:40 | Observation (INO) | payer MEDICARE, SELFPAY ==
[2025-03-13] VITALS (12 sets, daily range): BP systolic 128–195; BP diastolic 60–99; PULSE 62–80; RESP 16–18; TEMP 36.7; O2SAT 95–99; BMI 26.2
--- NOTE | 2025-03-13 10:44 | ECG_ITS ---
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
--- NOTE | 2025-03-13 10:44 | XRR_ITS ---
PROCEDURE INFORMATION: Exam: XR Chest Exam date and time: 03/13/2025 10:50 AM Age: 84 years old Clinical indication: Cough and dyspnea; Additional info: Dyspnea/cough TECHNIQUE: Imaging protocol: Radiologic exam of the chest. Views: 1 view. COMPARISON: CT chest zenapel w/*[id number] 12/09/2024 1:18 PM FINDINGS: Lungs: Mild hyperinflation versus deep inspiration. No new focal infiltrate seen of the lungs. Pleural spaces: No large or obvious pneumothorax nor pleural effusion seen. Mild biapical pleural thickening/scarring similar to 12/09/2024. Heart/Mediastinum: Heart size appears within normal. Vasculature: Atherosclerotic disease. Bones/joints: Degenerative changes spine. Arthritic changes shoulders bilaterally. Soft tissues: Rib cartilage calcifications. XR/XR chest 1V portable [id number] IMPRESSION: No acute findings seen of the chest. Please see body of report.
--- NOTE | 2025-03-13 10:51 | W.ED.SYNCOPE ---
HPI - Syncope General: Chief Complaint: Syncope Stated Complaint: syncopal episode Time Seen by Provider: 03/13/25 10:44 History of Present Illness: 84-year-old female presents emergency room had a syncopal episode at home. Patient has a history of chronic lymphocytic leukemia diagnosed earlier this year. She denies any chest or abdominal pain she states she has had several of these episodes before has not found a precipitating cause. She recently had a change in her amlodipine dose. She is currently receiving Brukinsa. 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 Associated symptoms: Deny abdominal pain, chest pain or fever(s) Related Data Home Medications ?Medication ?Instructions ?Recorded ?Confirmed multivitamin 1 tab PO DAILY 08/03/23 03/13/25 acetaminophen 500 mg tablet 500 mg PO Q6H PRN Pain 03/13/25 03/13/25 amlodipine 5 mg tablet (Norvasc) 5 mg PO DAILY 03/13/25 03/13/25 Previous Rx's ?Medication ?Instructions ?Recorded acyclovir 400 mg tablet 400 mg PO BID #60 tabs 10/01/24 carbamazepine 100 mg 100 mg PO DAILY #30 tabs 10/01/24 tablet,extended release,12 hr duloxetine 20 mg capsule,delayed 20 mg PO QDAY #30 caps 10/01/24 release pantoprazole 40 mg tablet,delayed 40 mg PO DAILY #30 tabs 10/01/24 release oxycodone 5 mg capsule 5 mg PO Q6H PRN pain 30 days #45 10/04/24 caps pregabalin 50 mg capsule 50 mg PO DAILY #30 caps 02/12/25 zanubrutinib 80 mg capsule 160 mg (2 x 80 mg) PO BID #120 caps 02/19/25 (Brukinsa) pravastatin 20 mg tablet 20 mg PO DAILY #30 tabs 03/04/25 Allergies Allergy/AdvReac Type Severity Reaction Status Date / Time niacin Allergy Severe ALGY-Difficulty Verified 03/11/25 14:53 Breathing Review of Systems Const: Denies: fever(s) or chills Card: Denies: chest pain Resp: Denies: dyspnea GI: Denies: abdominal pain : Denies: dysuria, urinary frequency or urinary urgency Musc: Denies: neck pain or back pain Skin/Breast: Denies: rash PFSH ED PFSH: Medical History (Updated 03/14/25 @ 06:38 by Madi Cintron DO) Accelerated essential hypertension Syncope and collapse Surgical History H/O arthroscopy of left knee Family History Denies family history of Diabetes Cancer Hypertension Stroke Social History (Updated 03/13/25 @ 17:02 by Mike Naylor MD) Smoking and tobacco/nicotine status: never used tobacco/nicotine Alcohol intake: never Substance/Drug Use: never Additional social history: Patient is seen in the emergency department room 4. Her son Patrick is on speaker phone. Patient wants full code as discussed today 03/13/2025 with Mike Naylor MD Physical Exam Const: GENERAL APPEARANCE: cooperative ORIENTATION/CONSCIOUSNESS: Yes awake, Yes oriented to person, Yes oriented to place and Yes oriented to time HENMT: COMMON NORMALS: normocephalic, atraumatic and hearing grossly normal bilaterally HEAD & SCALP: normocephalic and atraumatic Resp: COMMON NORMALS: normal respiratory effort, No retractions, No use of accessory muscles and clear to auscultation bilaterally AUSCULTATION: clear to auscultation bilaterally Cardio: COMMON NORMALS: regular rate, regular rhythm and No murmurs present (Cardio) RATE: regular rate RHYTHM: regular rhythm GI: COMMON NORMALS: Soft to palpation and No hepatosplenomegaly present AUSCULTATION: Yes normoactive bowel sounds PALPATION: Yes Soft to palpation, No Tenderness to palpation present (GI), No Guarding due to palpation present (GI) and Yes No hepatosplenomegaly present Extremity: COMMON NORMALS: normal to inspection, capillary refill normal, no clubbing, cyanosis or edema, no calf tenderness and no pedal edema Neuro: SENSORIUM/ORIENTATION: Yes oriented to person, Yes oriented to place and Yes oriented to time Skin: COMMON NORMALS: no rashes or lesions noted GENERAL SKIN EXAM: no rashes or lesions noted Course Vital Signs: Vital signs: Vital Signs Temperature 97.7 F 03/14/25 03:20 Pulse Rate 72 03/14/25 06:00 Respiratory Rate 18 03/14/25 03:20 Blood Pressure 151/69 03/14/25 03:20 Pulse Oximetry 95 09/12/25 03:20 Oxygen Delivery Me thod Room Air 03/14/25 03:20 MDM - Syncope Medical Decision Making Labs and imaging reviewed. Patient has had several syncopal episodes last several months but has not had a full workup. At this point cardiac enzymes are normal. EKG does not show any acute changes blood pressure is still trending high. She has made several adjustments at home with her blood pressure medicine particularly amlodipine. Placed patient on observation for further evaluation for causes of syncope. Discussed with hospitalist orders written Medical Records I reviewed the patient's medical records. Lab Data I reviewed the patient's lab results. 03/13/25 10:30 03/13/25 10:30 Radiology Impressions Chest X-Ray 03/13/25 10:44 IMPRESSION: No acute findings seen of the chest. Please see body of report. Laboratory Results WBC 3.67 10^3/uL (3.29-11.43) 03/13/25 10:30 RBC 3.76 10^6/uL (3.85-5.65) L 03/13/25 10:30 Hgb 11.40 g/dL (11.27-16.99) 03/13/25 10:30 Hct 34.7 % (36-47) L 03/13/25 10:30 MCV 92.3 fl (85-98) 03/13/25 10:30 MCH 30.3 pg (27-33) 03/13/25 10:30 MCHC 32.9 g/dL (30-55) 03/13/25 10:30 RDW 13.6 % (12.1-15.1) 03/13/25 10:30 Plt Count 182 10^3/cmm (157-399) 03/13/25 10:30 MPV 12.3 fL (7.4-10.4) H 03/13/25 10:30 Lymph % (Auto) Not Reportable 03/13/25 10:30 [place] % (Auto) Not Reportable 03/13/25 10:30 Lymph # (Auto) Not Reportable 03/13/25 10:30 [place] # (Auto) Not Reportable 03/13/25 10:30 Total Counted 100 (0-100) 03/13/25 10:30 Atypical Lymphs % 8.0 % (0-5) H 03/13/25 10:30 Absolute Neutrophils 1.9 10^3/cmm (1.4-6.5) 03/13/25 10:30 Segmented Neutrophils 41 % 03/13/25 10:30 Band Neutrophils 11.0 % 03/13/25 10:30 Absolute Lymphocytes 1.6 10^3/cmm (1.2-3.4) 03/13/25 10:30 Lymphocytes (Manual) 35 % 03/13/25 10:30 Monocytes (Manual) 4.0 % 03/13/25 10:30 Absolute Monocytes 0.1 10^3/cmm (0.1-0.6) 03/13/25 10:30 Eosinophils (Manual) 1 % 03/13/25 10:30 Absolute Eosinophils 0.0 10^3/cmm (0.0-0.7) 03/13/25 10:30 Basophils (Manual) 0.0 % 03/13/25 10:30 Absolute Basophils 0.0 10^3/cmm (0.0-0.2) 03/13/25 10:30 Platelet Estimate Decreased (Normal) L 03/13/25 10:30 Sodium 141 mmol/L (136-145) 03/13/25 10:30 Potassium 3.8 mmol/L (3.5-5.1) 03/13/25 10:30 Chloride 102 mmol/L (98-107) 03/13/25 10:30 Carbon Dioxide 28 mmol/L (22-29) 03/13/25 10:30 Anion Gap 14.8 (5-19) 03/13/25 10:30 BUN 16 mg/dL (8-23) 03/13/25 10:30 Creatinine 0.7 mg/dL (0.5-0.9) 03/13/25 10:30 GFR Calculation Not Reportable 03/13/25 10:30 Glucose 88 mg/dL (65-115) 03/13/25 10:30 Calculated Osmolality 293 mOsm/kg (285-295) 03/13/25 10:30 Calcium 9.3 mg/dL (8.5-10.5) 03/13/25 10:30 Total Bilirubin 0.2 mg/dL (0.15-1.2) 03/13/25 10:30 AST 18 U/L (0-32) 03/13/25 10:30 ALT 9 U/L (0-33) 03/13/25 10:30 Alkaline Phosphatase 76 U/L (35-105) 03/13/25 10:30 Troponin T Baseline 13 ng/L (0-10) H 03/13/25 10:30 Troponin T 120 Minute 12.11 ng/L (0-10) H 03/13/25 12:25 Delta Troponin T -0.89 ABS# (0-10) L 03/13/25 12:25 Total Protein 6.0 g/dL (6.6-8.7) L 03/13/25 10:30 Albumin 4.0 g/dL (3.5-5.2) 03/13/25 10:30 Globulin 2.0 g/dL (1.3-4.6) 03/13/25 10:30 Urine Color Yellow (Yellow) 03/13/25 12:06 Urine Appearance Clear (CLEAR) 03/13/25 12:06 Urine pH 7.0 (5-7) 03/13/25 12:06 Ur Specific [place] 1.015 (1.005-1.030) 03/13/25 12:06 Urine Protein Negative (Negative) 03/13/25 12:06 Urine Glucose (UA) Negative (Normal) 03/13/25 12:06 Urine Ketones 1+ (Negative) H 03/13/25 12:06 Urine Blood Negative (Negative) 03/13/25 12:06 Urine Nitrate Negative (Negative) 03/13/25 12:06 Urine Bilirubin Negative (Negative) 03/13/25 12:06 Urine Urobilinogen 1.0 mg/dL (Negative) 03/13/25 12:06 Ur Leukocyte Esterase Trace (Negative) A 03/13/25 12:06 Urine RBC 0-2 /hpf (0-2) 03/13/25 12:06 Urine WBC 0-5 /hpf (0-5) 03/13/25 12:06 Ur Squamous Epith Cells 0-5 /hpf (0-5) 03/13/25 12:06 Amorphous Sediment Not Reportable 03/13/25 12:06 Urine Bacteria None seen /hpf (NONE) 03/13/25 12:06 Hyaline Casts 2.05 /lpf 03/13/25 12:06 All radiology interpretation(s) finalized by discharge Discharge Plan Discharge Patient Disposition: Admitted As Inpatient Admit Provider: Mike Naylor Clinical Impression: Syncope and collapse, CLL (chronic lymphocytic leukemia), Accelerated essential hypertension Condition: Stable Coding Level of Care Code ED Charge Manager for June Rosas
[2025-03-13 10:55] LABS: Hematocrit 34.7 % (36-47); Hemoglobin 11.40 g/dL (11.27-16.99); Mean Corpuscular HGB Conc 32.9 g/dL (30-55); Mean Corpuscular Hemoglobin 30.3 pg (27-33); Mean Corpuscular Volume 92.3 fl (85-98); Platelet Count 182 10^3/cmm (157-399); Red Blood Count 3.76 10^6/uL (3.85-5.65); White Blood Count 3.67 10^3/uL (3.29-11.43)
[2025-03-13 11:10] LABS: Troponin(5th) Baseline 13 ng/L (0-10)
[2025-03-13 11:14] LABS: Alanine Aminotransferase 9 U/L (0-33); Albumin Level 4.0 g/dL (3.5-5.2); Alkaline Phosphatase 76 U/L (35-105); Anion Gap 14.8 (5-19); Aspartate Amino Transferase 18 U/L (0-32); Blood Urea Nitrogen 16 mg/dL (8-23); Calcium 9.3 mg/dL (8.5-10.5); Carbon Dioxide 28 mmol/L (22-29); Chloride 102 mmol/L (98-107); Creatinine Clr Calc Pharmacy 50.4700; Globulin 2.0 g/dL (1.3-4.6); Glucose 88 mg/dL (65-115); Osmolality Calculated 293 mOsm/kg (285-295); Potassium 3.8 mmol/L (3.5-5.1); Sodium 141 mmol/L (136-145); Total Protein 6.0 g/dL (6.6-8.7)
[2025-03-13 11:38] LABS: Slide Review Slide Review Perform
[2025-03-13 11:41] LABS: Absolute Segmented Neutrophil 1.5 10/cmm (1.6-7.1); Atypical Lymphs 8.0 % (0-5); Band Neutrophils Absolute 0.4 10^3/cmm (0.0-1.2); Total Cells Counted 100 (0-100)
[2025-03-13 12:23] LABS: Add Urine Microscopic? NO
[2025-03-13 12:28] LABS: Glucose Urine UA Negative (Normal); Nitrate Urine Negative (Negative); Specific Gravity, Urine 1.015 (1.005-1.030)
[2025-03-13 12:29] LABS: Charge for UA Resulting for Rev
--- NOTE | 2025-03-13 12:54 | PC.PHAR ---
Pt states she did not take her bp medication this morning due to she thinks it is what is causing her problems.
--- NOTE | 2025-03-13 13:02 | ECG_ITS ---
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
--- NOTE | 2025-03-13 13:12 | PC.NURSE ---
ASSUMED CARE OF PT @1300
[2025-03-13 13:16] LABS: Troponin 5 2HR 12.11 ng/L (0-10)
[2025-03-13 13:17] LABS: Troponin 5 2HR Delta -0.89 ABS# (0-10)
[2025-03-13] MEDS: morphine 4 mg/mL SDV 1 mL 2 MG IVP (15:30)
--- NOTE | 2025-03-13 16:47 | ECG_ITS ---
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
--- NOTE | 2025-03-13 16:55 | PM.HP ---
Providers/Chief Complaint Admitting Physician: Mike Naylor MD Primary Care Provider: BRINA Hickman Chief Complaint: syncopal episode History of Present Illness Perlita Corey is a 84 year old female with history of leptomeningeal involvement with CLL. Patient states she was diagnosed in August 2024 at [facility] in [place]. She states she was in the hospital for 4 weeks getting workup including biopsies MRIs and also started chemotherapy treatment. She states she was then at a shelter facility for 2 weeks in [place] before returning here. Other history regarding the cancer as copied from Dr. Sanchez's office note is as follows Patient has seen Dr. Prado in [place] for oncology and locally sees Dr. Sanchez. She had presented with neurological symptoms had lumbar puncture and CSF cytology on August 19, 2024 showing atypical lymphocytes. Subsequent workup including flow cytometry showed a monoclonal B-cell with expression of CD5 and CD20. Cytology also positive for atypical lymphocyte. Patient underwent bone marrow biopsy August 23, 2024 which shows 5 to 10% CD5 positive lymphoid cells. Overall consistent with CLL/SLL.. Brain MRI August 16 showed hyperintensity in the medullar and upper cervical spinal cord. Extension superior to the level joshua. Also involving root entry zone in the left trigeminal nerve. MRI of the spine August 18 shows large expansile enhancing T2 star hyperintensity lesion centered at the cervical medullary junction upper thoracic spinal cord and conus. PET scan August 21, 2024 he has intense FDG uptake within the spinal cord. Case was presented at multidisciplinary lymphoma conference August 27, 2024. Patient was treated with Gazyva single agent August 28, 2024 and she had 3 weekly dose finished September 10, 2024 Zanubrutinib 160 mg twice daily initiated August 30, 2024 he had a long hospitalization at [facility]. Was discharged September 30. The recommendation is continue full dose of Brukinsa without Gazyva. She is also on acyclovir [address] head December 12, 2024, MRI head December 10, 2024, CT chest abdomen pelvis December 09, 2024 did not show any progressive disease. She had a fall and went to ER December 12, 2024 Dose was reduced December 17, 2024 to Brukinsa 80 mg p.o. twice daily. Blood pressure medication has been discontinued. She has been on a safety button now. Increased dose to 160 mg p.o. twice daily December 31, 2024 MRI head March 04, 2025 was again negative. March 11, 2025 patient is here today for follow-up visit. She came with her son from [place]. Has headache since MRI last week. Blood pressure is running high today. Has easy bruising. Losing weight. But has good appetite. Eating well. She also has easy bruising. This morning on March 13 the patient was talking to her son and he noticed slowed responses a vacant look to her face and then he she slumped against him. He carried her over to the couch from the sink. She was unresponsive for 15 seconds. Patient tells me that she was having syncope while on amlodipine 10 mg couple months ago. It was stopped and blood pressures were running high and she had no more syncope. She was started back at amlodipine 5 mg after being off for a month and she had this episode this morning. Patient states she was walking 3 miles a day up until of last year then she developed wobbly and an imbalance to her gait. She developed scalp itching and pain treated with steroid creams and lotions ultimately culminating in [facility] workup as above Review of Systems Narrative: General No fevers chills she has had weight loss 20 pounds Cardiovascular no chest pain palpitations she has had some ankle edema Respiratory no shortness breath cough wheezing GI no nausea vomiting she does have constipation but denies melena hematochezia no dysuria hematuria Neuro no history of seizures or strokes. She does have the syncope episodes as described above while on amlodipine Skin she has had itchiness without rash Musculoskeletal she has chronic headaches right side with tenderness of the face to touch Medications/Allergies Home Medications ?Medication ?Instructions ?Recorded ?Confirmed ?Last Taken ?Type multivitamin 1 tab PO DAILY 08/03/23 03/13/25 03/13/25 History acyclovir 400 mg tablet 400 mg PO BID #60 tabs 10/01/24 03/13/25 03/13/25 Rx carbamazepine 100 mg 100 mg PO DAILY #30 tabs 10/01/24 03/13/25 03/13/25 Rx tablet,extended release,12 hr duloxetine 20 mg capsule,delayed 20 mg PO QDAY #30 caps 10/01/24 03/13/25 03/13/25 Rx release pantoprazole 40 mg tablet,delayed 40 mg PO DAILY #30 tabs 10/01/24 03/13/25 03/13/25 Rx release oxycodone 5 mg capsule 5 mg PO Q6H PRN pain 30 days #45 10/04/24 03/13/25 Unknown Rx caps pregabalin 50 mg capsule 50 mg PO DAILY #30 caps 02/12/25 03/13/25 03/13/25 Rx zanubrutinib 80 mg capsule 160 mg (2 x 80 mg) PO BID #120 caps 02/19/25 03/13/25 03/13/25 Rx (Brukinsa) pravastatin 20 mg tablet 20 mg PO DAILY #30 tabs 03/04/25 03/13/25 03/13/25 Rx acetaminophen 500 mg tablet 500 mg PO Q6H PRN Pain 03/13/25 03/13/25 Unknown History amlodipine 5 mg tablet (Norvasc) 5 mg PO DAILY 03/13/25 03/13/25 03/12/25 History Allergies Allergy/AdvReac Type Severity Reaction Status Date / Time niacin Allergy Severe ALGY-Difficulty Verified 03/11/25 14:53 Breathing PFSH Acute PFSH: Medical History (Updated 03/13/25 @ 17:04 by Mike Naylor MD) Accelerated essential hypertension Syncope and collapse Surgical History H/O arthroscopy of left knee Family History Denies family history of Diabetes Cancer Hypertension Stroke Social History (Updated 03/13/25 @ 17:02 by Mike Naylor MD) Smoking and tobacco/nicotine status: never used tobacco/nicotine Alcohol intake: never Substance/Drug Use: never Additional social history: Patient is seen in the emergency department room 4. Her son Patrick is on speaker phone. Patient wants full code as discussed today 03/13/2025 with Mike Naylor MD Vitals/I&O/Wt Last Vital Signs Temp 98.1 F 03/13/25 10:40 Pulse 68 03/13/25 15:00 Resp 16 03/13/25 15:30 BP 148/80 03/13/25 15:00 Pulse Ox 98 03/13/25 15:30 O2 Del Method Room Air 03/13/25 15:00 03/13/25 03/13/25 03/13/25 06:59 14:59 22:59 Intake Total 500 / 500 Balance 500 / 500 Weight last 48 hrs Weight 58.967 kg Physical Exam Narrative: General well-developed well-nourished female in no acute cardiopulmonary stress Neuro face is symmetric pupils equally round and reactive to light accommodation external ocular movements are intact tongue protrusion no deviation head turn left strong right side could not be tested due to sensitivity of the right face to touch handgrips 5/5 bilateral. Ankle flexion extension 5/5 right 5-/5 left CV regular rate and rhythm Lungs clear to auscultation bilaterally Abdomen positive bowel tones soft nontender Calves no tenderness cords or pedal edema Skin warm and dry Data 03/13/25 10:30 03/13/25 10:30 A&P Assessment and plan 1. Syncope and collapse: Patient be admitted to telemetry with carotid Dopplers and echocardiogram. Orthostatic blood pressures will be checked. I am going to stop amlodipine and put the patient on losartan for blood pressure. This may be a medication side effect either with orthostasis or independent of the same. 2. CLL (chronic lymphocytic leukemia): Stable white count 3.67 3. Accelerated essential hypertension: Blood pressure treatment as above. Blood pressures already improved to 166/60 PDMP PDMP Reviewed: Not Reviewed Attestations Medical Necessity Statement*: Patient will be observed in the hospital overnight with physical therapy telemetry carotid Doppler and echo with. Anticipate discharge home tomorrow Coding Level of Care Code 13692 Diagnoses Syncope and collapse R55 CLL (chronic lymphocytic leukemia) C91.10 Accelerated essential hypertension I10 Time Spent (min) 70
[2025-03-13 17:32] LABS: Troponin 5 6HR 11.17 ng/L (0-10); Troponin 5 6HR Delta -1.83 ng/L (0-12)
--- NOTE | 2025-03-13 18:47 | USCV_ITS ---
Perlita Corey Age: 84 Gender: F : 1940 Exam Date: 03/13/2025 21:44 Ordering Phys: Mike Naylor MD Technologist: MARIA TERESA Exam Location: [facility] [place] Indication: syncope, CLL on chemo recently BP: 143 / 90 HR: 71 Rhythm: Sinus Technical Quality: Good MEASUREMENTS (Male / Female) Normal Values 2D ECHO LV Diastolic Diameter PLAX 3.9 cm 4.2 - 5.9 / 3.9 - 5.3 cm IVS Diastolic Thickness 1.1 cm 0.6 - 1.0 / 0.6 - 0.9 cm IVS Systolic Thickness 1.0 cm LVPW Diastolic Thickness 0.9 cm 0.6 - 1.0 / 0.6 - 0.9 cm LVPW Systolic Thickness 1.2 cm LVOT Diameter 2.0 cm LV Ejection Fraction 2D Teich 68.6 % LV Ejection Fraction MOD 4C 77.4 % LV Ejection Fraction MOD 2C 81.6 % LV Ejection Fraction 2C AL 80.9 % LA Diameter 2.7 cm Aorta at Sinotubular Diameter 2.4 cm IVC Diameter 0.9 cm M-MODE LA Ao Ratio MM 1.3 AV Cusp Separation MM 1.7 cm DOPPLER AV Peak Velocity 132.0 cm/s LVOT Peak Velocity 105.0 cm/s AV Area Cont Eq vti 2.2 cm squared AV Area Cont Eq pk 2.4 cm squared MV Peak Velocity 100.0 cm/s MV Area PHT 3.5 cm squared Mitral E to A Ratio 0.9 TV Peak Velocity 230.3 cm/s TR Peak Velocity 239.0 cm/s TR Peak Gradient 22.8 mmHg TV Peak E Velocity 55.0 cm/s PV Peak Velocity 96.0 cm/s FINDINGS Left Ventricle Normal left ventricular size, systolic function and wall thickness, with no regional wall motion abnormalities. Left ventricular ejection fraction is estimated at 60 %. Grade I/IV diastolic dysfunction (abnormal relaxation filling pattern), normal to mildly elevated filling pressures. Right Ventricle The right ventricle is normal in size and function. Right Atrium The right atrium is normal in size. Left Atrium The left atrium is normal in size. Mitral Valve Mildly thickened mitral valve. No mitral valve stenosis. Mild mitral valve regurgitation. Aortic Valve Moderate aortic valve calcification. No aortic valve stenosis. Trace aortic valve regurgitation. Tricuspid Valve Moderate tricuspid valve regurgitation. Pulmonic Valve Mild to moderate pulmonary valve regurgitation. Pericardium Normal pericardium without effusion. Aorta Normal ascending aorta dimension. IVC The inferior vena cava appears normal. CONCLUSIONS Normal left ventricular size, systolic function and wall thickness, with no regional wall motion abnormalities. Left ventricular ejection fraction is estimated at 60 %. Grade I/IV diastolic dysfunction (abnormal relaxation filling pattern), normal to mildly elevated filling pressures. Moderate tricuspid valve regurgitation. Mild to moderate pulmonary valve regurgitation. Mildly thickened mitral valve. No mitral valve stenosis. Mild mitral valve regurgitation. There is no pericardial effusion. Right atrial pressure is around 5 mm of mercury. Bora Munoz MD (Electronically Signed) Final Date: 17 March 2025 09:21 S
--- NOTE | 2025-03-13 18:47 | USCV_ITS ---
Perlita Corey Age: 84 Gender: F : 1940 Exam Date: 03/13/2025 21:17 Ordering Phys: Mike Naylor MD Technologist: MARIA TERESA Exam Location: [facility] [place] Indication: syncope, CLL on chemo recently Risk Factors: syncope, CLL on chemo recently Previous Vascular Surgery: None Right Brachial BP: 143 / 90 Left Brachial BP: / Right Left Velocity (cm/s) Spectral Plaque Velocity (cm/s) Spectral Plaque Syst/Diast Broadening Syst/Diast Broadening 83.00/ 16.80 None None Prox CCA 93.70 / 22.80 None 102.20/19.30 None None Mid CCA 91.60 / 18.60 None 89.30/ 21.90 Min Hetro Distal CCA 83.30 / 18.60 Hetro 121.80/30.30 Min Gurmeet Prox ICA 148.00/ 31.10 None 161.90/40.80 Min Homo Mid ICA 116.70/ 26.90 Homo 109.10/25.50 None Homo Distal ICA 117.80/ 32.50 Homo 97.00 Min Homo ECA 87.50 Homo 1.80 ICA/CCA 1.80 Antegrade Vertebral Antegrade 59.20/ 14.60 cm/s 52.00/ 10.20 cm/s Tri Subclavian Tri 118.3 120.9 0 0 CONCLUSIONS Right ICA stenosis <50%. Mild atheromatous plaque right carotid bulb/ICA. Left ICA stenosis 50-69%. Moderate atheromatous plaque left carotid bulb/ICA. Intimal thickening in the common carotid arteries and internal carotid arteries bilaterally. Normal antegrade Doppler flow noted in the right vertebral artery. Normal antegrade Doppler flow noted in the left vertebral artery. Mike Olmedo MD (Electronically Signed) Final Date: 14 March 2025 09:46 S
[2025-03-13] MEDS: ZANUBRUTINIB 80 MG 160 EACH PO (20:48)
[2025-03-14] VITALS (8 sets, daily range): BP systolic 109–151; BP diastolic 53–82; PULSE 69–87; RESP 16–18; TEMP 36.5–37; O2SAT 93–96
[2025-03-14] MEDS: ATORVASTATIN 10 MG TABLET 20 MG PO (07:28)
[2025-03-14] MEDS: carBAMazepine XR (12 HR) 100 mg Tablet PO (07:28)
[2025-03-14] MEDS: multivitamin therapeutic Tablet 1 TAB PO (07:28)
[2025-03-14] MEDS: ZANUBRUTINIB 80 MG 160 EACH PO (07:32)
--- NOTE | 2025-03-14 10:06 | PC.CHAP ---
Pastoral Care Encounter/Spiritual Assessment Type of Contact [] Declined welding manager visit [] Patient/Family/Request visit [] Outpatient visit [] Follow-up visit [] Physician referral [] Code/Alert [x] Routine visit [] Staff referral [] Actively dying [] Patient sleeping [x] Family support [] [] Out of room [] Palliative care [] [] Receiving care in room [] Pre-surgical visit [] Trauma [] Long length of stay [] ICU visit [] Other: Relational/Emotional Strength [x] Patient feels connected with others/family/visitors/staff [] Distress [] Loneliness/isolation [] Abandonment Spirituality of Patient [x] Person of January [] Attends Latter-Day of their January [x] Believes in Prayer [] Reads Bible or Nondenominational materials [] There are Spiritual issues to be addressed Operations Vice President Interventions [x] Prayer [x] Active listening [x] Non-anxious presence [x] Spiritual/emotional support [] Crisis/trauma care [] Spiritual counseling [] Bereavement support [] Provided bereavement packet [] Provided Bible/devotional materials [] Provided toy/stuffed animal, coloring book to patient or family member [] Provided Communion [] Anointing/Raven [] Salvation [x] Completed spiritual assessment [] Other: Impact on Illness or Injury [] Angry [] Fearful [] Anxious [] Often cries [] Exhaustion [] Unable to work [] Unable to attend jainism [] Unable to walk/stand [] Unable to read [] Unable to drive [] Unable to eat/drink [] Unable to sleep [] Unable to be with family [] Patient intubated [] Other: Summary Time spent with patient 10 min
--- NOTE | 2025-03-14 13:12 | P.DS_ITS ---
Discharge Providers Date of Admission: 03/13/25 15:21 Date of Discharge: March 14, 2025 Attending Provider at Admission: Mike Naylor MD Attending Provider at Discharge: Mike Naylor MD Primary Care Provider: BRINA Hickman Diagnoses at Discharge Discharge Diagnosis 1. Syncope and collapse: Details from hospital stay: There was some evidence of low blood pressure after standing and no increase in heart rate. This may be related to Brukinsa which is known to cause hypotension and dizziness. That noted the dizziness is typically attributed to arrhythmia and telemetry monitoring here showed no arrhythmia. 2. CLL (chronic lymphocytic leukemia): Details from hospital stay: Follow-up with your oncologist regarding Brukinsa 3. Accelerated essential hypertension: Details from hospital stay: Blood pressure initially high in the emergency department potentially attributable to Brukinsa and amlodipine is stopped. We treated her with losartan 25 mg last evening for blood pressure 180 systolic and this morning blood pressure 150. Following morning dose of losartan 25 mg blood pressure was as low as 109/53 at noon. Therefore I have decreased losartan to 12.5 mg daily Reason for Visit Reason for Visit: syncopal episode Brief History: 84-year-old female with CLL tr eated with Brukinsa has had hypertension but also syncope. This was not notable when she was on amlodipine 10 mg daily but absent for the month that she was off amlodipine completely. Her blood pressure tends to run high at 180 systolic. She was started back on amlodipine at a lower dose of 5 mg daily and then had a syncopal episode on the morning of admission yesterday where she became lethargic had vacant look and slumped against her son who had to carry her over to a couch to sit down. Patient was admitted for syncope and he reports that she she was out for about 15 seconds Hospital Course Hospital Course Patient was admitted to the hospital on observation with telemetry and telemetry shows no arrhythmia. Carotid Dopplers 50-60 % narrowing left carotid less than 50% on the right. Echo has been done but report not back. Patient desires discharge and to follow-up regarding that outpatient Patient was given 25 mg of losartan last evening and blood pressure this morning 150 systolic. She received the second scheduled dose at 9 AM and blood pressure at noon was 109/53 and patient felt a little lightheaded walking. Orthostatic blood pressure show Supine 133/76 heart rate 71 Sitting 135/80 heart rate 72 Standing 109/69 heart rate 78 Brukinsa is known to cause hypertension and dizziness. Dizziness is attributable to arrhythmia but arrhythmia not seen Physical Exam Narrative: General well-developed well-nourished female in no acute cardi opulmonary stress she is alert oriented pleasant CV regular rate and rhythm Lungs clear to auscultation bilaterally Neck no carotid bruits Calves no tenderness cords pretibial edema Discharge Data Studies Completed and Pending Completed Studies During Hospitalization Category Date Time Status XR chest 1V portable [id number] Stat Exams 03/13/25 10:44 Completed CV carotid duplex BI* [id number] Routine Ultrasound 03/13/25 18:47 Completed Pending at discharge Category Date Time Status CV. echo complete* [id number] Routine Ultrasound 03/13/25 18:47 Taken Radiology Impressions Chest X-Ray 03/13/25 10:44 IMPRESSION: No acute findings seen of the chest. Please see body of report. Laboratory Results WBC 3.67 10^3/uL (3.29-11.43) 03/13/25 10:30 RBC 3.76 10^6/uL (3.85-5.65) L 03/13/25 10:30 Hgb 11.40 g/dL (11.27-16.99) 03/13/25 10:30 Hct 34.7 % (36-47) L 03/13/25 10:30 MCV 92.3 fl (85-98) 03/13/25 10:30 MCH 30.3 pg (27-33) 03/13/25 10:30 MCHC 32.9 g/dL (30-55) 03/13/25 10:30 RDW 13.6 % (12.1-15.1) 03/13/25 10:30 Plt Count 182 10^3/cmm (157-399) 03/13/25 10:30 MPV 12.3 fL (7.4-10.4) H 03/13/25 10:30 Lymph % (Auto) Not Reportable 03/13/25 10:30 [place] % (Auto) Not Reportable 03/13/25 10:30 Lymph # (Auto) Not Reportable 03/13/25 10:30 [place] # (Auto) Not Reportable 03/13/25 10:30 Total Counted 100 (0-100) 03/13/25 10:30 Atypical Lymphs % 8.0 % (0-5) H 03/13/25 10:30 Absolute Neutrophils 1.9 10^3/cmm (1.4-6.5) 03/13/25 10:30 Segmented Neutrophils 41 % 03/13/25 10:30 Band Neutrophils 11.0 % 03/13/25 10:30 Absolute Lymphocytes 1.6 10^3/cmm (1.2-3.4) 03/13/25 10:30 Lymphocytes (Manual) 35 % 03/13/25 10:30 Monocytes (Manual) 4.0 % 03/13/25 10:30 Absolute Monocytes 0.1 10^3/cmm (0.1-0.6) 03/13/25 10:30 Eosinophils (Manual) 1 % 03/13/25 10:30 Absolute Eosinophils 0.0 10^3/cmm (0.0-0.7) 03/13/25 10:30 Basophils (Manual) 0.0 % 03/13/25 10:30 Absolute Basophils 0.0 10^3/cmm (0.0-0.2) 03/13/25 10:30 Platelet Estimate Decreased (Normal) L 03/13/25 10:30 Sodium 141 mmol/L (136-145) 03/13/25 10:30 Potassium 3.8 mmol/L (3.5-5.1) 03/13/25 10:30 Chloride 102 mmol/L (98-107) 03/13/25 10:30 Carbon Dioxide 28 mmol/L (22-29) 03/13/25 10:30 Anion Gap 14.8 (5-19) 03/13/25 10:30 BUN 16 mg/dL (8-23) 03/13/25 10:30 Creatinine 0.7 mg/dL (0.5-0.9) 03/13/25 10:30 GFR Calculation Not Reportable 03/13/25 10:30 Glucose 88 mg/dL (65-115) 03/13/25 10:30 Calculated Osmolality 293 mOsm/kg (285-295) 03/13/25 10:30 Calcium 9.3 mg/dL (8.5-10.5) 03/13/25 10:30 Total Bilirubin 0.2 mg/dL (0.15-1.2) 03/13/25 10:30 AST 18 U/L (0-32) 03/13/25 10:30 ALT 9 U/L (0-33) 03/13/25 10:30 Alkaline Phosphatase 76 U/L (35-105) 03/13/25 10:30 Troponin T Baseline 13 ng/L (0-10) H 03/13/25 10:30 Troponin T 120 Minute 12.11 ng/L (0-10) H 03/13/25 12:25 Delta Troponin T -0.89 ABS# (0-10) L 03/13/25 12:25 Troponin T Hi Sens 6Hr 11.17 ng/L (0-10) H 03/13/25 16:35 Troponin T Hi Sens 6Hr Delta -1.83 ng/L (0-12) L 03/13/25 16:35 Total Protein 6.0 g/dL (6.6-8.7) L 03/13/25 10:30 Albumin 4.0 g/dL (3.5-5.2) 03/13/25 10:30 Globulin 2.0 g/dL (1.3-4.6) 03/13/25 10:30 Urine Color Yellow (Yellow) 03/13/25 12:06 Urine Appearance Clear (CLEAR) 03/13/25 12:06 Urine pH 7.0 (5-7) 03/13/25 12:06 Ur Specific [place] 1.015 (1.005-1.030) 03/13/25 12:06 Urine Protein Negative (Negative) 03/13/25 12:06 Urine Glucose (UA) Negative (Normal) 03/13/25 12:06 Urine Ketones 1+ (Negative) H 03/13/25 12:06 Urine Blood Negative (Negative) 03/13/25 12:06 Urine Nitrate Negative (Negative) 03/13/25 12:06 Urine Bilirubin Negative (Negative) 03/13/25 12:06 Urine Urobilinogen 1.0 mg/dL (Negative) 03/13/25 12:06 Ur Leukocyte Esterase Trace (Negative) A 03/13/25 12:06 Urine RBC 0-2 /hpf (0-2) 03/13/25 12:06 Urine WBC 0-5 /hpf (0-5) 03/13/25 12:06 Ur Squamous Epith Cells 0-5 /hpf (0-5) 03/13/25 12:06 Amorphous Sediment Not Reportable 03/13/25 12:06 Urine Bacteria None seen /hpf (NONE) 03/13/25 12:06 Hyaline Casts 2.05 /lpf 03/13/25 12:06 Vitals Last Vital Signs Temp 98.0 F 03/14/25 12:08 Pulse 79 03/14/25 12:08 Resp 16 03/14/25 12:08 BP 109/53 03/14/25 12:08 Pulse Ox 93 03/14/25 12:08 O2 Del Method Room Air 03/14/25 03:20 Discharge Plan Discharge Patient Disposition: Home Condition: Stable Prescriptions: New losartan 25 mg tablet 12.5 mg PO DAILY Qty: 30 0RF Continued pantoprazole 40 mg tablet,delayed release (DR/EC) 40 mg PO DAILY Qty: 30 3RF carbamazepine 100 mg tablet extended release 12 hr 100 mg PO DAILY Qty: 30 3RF duloxetine 20 mg capsule,delayed release(DR/EC) 20 mg PO QDAY Qty: 30 3RF acyclovir 400 mg tablet 400 mg PO BID Qty: 60 3RF oxycodone 5 mg capsule 5 mg PO Q6H PRN (Reason: pain) 30 Days Qty: 45 0RF pregabalin 50 mg capsule 50 mg PO DAILY Qty: 30 3RF Brukinsa 80 mg capsule 160 mg PO BID Qty: 120 0RF pravastatin 20 mg tablet 20 mg PO DAILY Qty: 30 3RF multivitamin Tablet 1 tab PO DAILY acetaminophen 500 mg Tablet 500 mg PO Q6H PRN (Reason: Pain) Discontinued amlodipine [Norvasc] 5 mg tablet 5 mg PO DAILY Discharge Order = DC NOW: Discharge Order (Routine); Ordered 03/14/25 Ordered By: Mike Naylor Referrals: Belrte,Erica, [employer]ACHINE OPERATOR [Primary Care Provider, Nurse Practitioner] Discharge Diet: Cardiac and Low Fat Discharge Activity: Increase activity as tolerated and Limit activity as instructed Patient Instructions: Opioid Safety, Patient Portal & Mary Instructions Activity Restrictions/Additional Instructions: Please exercise caution when standing as your blood pressure seems to drop shortly after standing and may require a delay before moving from initial standing position. Please talk with your oncologist about the Brukinsa because it has known side effect of causing high blood pressure and also dizziness. The dizziness is cited as being related to heart arrhythmia but we did not see any heart arrhythmia here. Start taking the losartan 12.5 mg daily and monitor your blood pressure. If it is lower than 110/60 I would suggest that you not take it Discharge Attestations Time Spent in Discharge Care*: greater than 30 min Time Spent in Smoking Cessation: Patient is not a smoker Quality Metrics Clinical Quality Measures [ No reported AMI, CVA or VTE this stay] Coding Level of Care Code 26243 Diagnoses Syncope and collapse R55 CLL (chronic lymphocytic leukemia) C91.10 Accelerated essential hypertension I10 Time Spent (min) 35
== END 2025-03-14 14:17 | disposition home health service (06) ==
LOC: ER 10:54 → ER IP 15:22 → CSU 16:25 → ER IP 16:56 → MEDSURG 18:04
PROVIDERS: Admitting Provider Internal Medicine; Emergency Provider Family Medicine; PCP Nurse Practitioner Family; Visit Provider Internal Medicine
DX: R55 Syncope and collapse (principal); C91.10 Chronic lymphocytic leukemia of B-cell type not having achieved remission; I10 Essential (primary) hypertension; K21.9 Gastro-esophageal reflux disease without esophagitis
CPT/HCPCS: 36415; 71045; 80053; 81003; 84484; 85007; 85025; 93005; 93306; 93880; 96372; 96374; 96375; 97161; 97165; 99285; G0378; J1650; J1885; J2270; J7040; J9999

== ENCOUNTER 2025-03-15 11:40 | Observation (INO) | payer MEDICARE, SELFPAY ==
[2025-03-15] VITALS (15 sets, daily range): BP systolic 91–221; BP diastolic 48–108; PULSE 69–97; RESP 16–18; TEMP 36.6–36.8; O2SAT 91–98; BMI 26.2
--- NOTE | 2025-03-15 12:39 | ECG_ITS ---
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 Measurements Intervals [place] Rate: 67 P: 38 [place]: 147 QRS: 31 QRSD: 90 T: 7 QT: 407 QTc: 432 Interpretive Statements SINUS RHYTHM NONSPECIFIC ST-T WAVE ABNORMALITY Compared to ECG 03/13/2025 16:47:52 T WAVE INVERSIONS IN THE INFERIOR LEADS IS NEW Electronically Signed On 03-15-2025 18:54:41 CDT by Asa Romero M.D. [email or web address]
[2025-03-15] MEDS: hyDRALAzine 20 mg/mL INJ 1 mL 10 MG IVP ×2 (12:58→14:50)
--- NOTE | 2025-03-15 13:12 | ED_ITS ---
HPI - General Adult 2 General: Chief complaint: General Medical Stated complaint: High bp Time Seen by Provider: 03/15/25 12:27 History of Present Illness: 84-year-old female presents emergency ro om complaint of elevated blood pressure. Patient was seen earlier in the week and reported having several syncopal episodes was monitored overnight and discharged home send noted to have low blood pressures and her losartan was decreased from 25-12.5 daily. She is reporting elevated blood pressure now. She has a mild headache but no other symptoms no chest pain or abdominal pain. She had her last Brukinsa treatment 1 week ago is not due until early April for her next 1. No vision changes no difficulty with gait or balance Associated symptoms: Deny chest pain, dyspnea or rash Related Data Home Medications ?Medication ?Instructions ?Recorded ?Confirmed acetaminophen 500 mg tablet 500 mg PO Q6H PRN Pain 05/2703/18/25 vit A 300 mcg-C 200 mg-E 27 1 tab PO DAILY 03/15/25 mg-lutein 2 mg and minerals tablet (Healthy Eyes) Previous Rx's ?Medication ?Instructions ?Recorded acyclovir 400 mg tablet 400 mg PO BID #60 tabs 10/01 carbamazepine 100 mg 100 mg PO DAILY #30 tabs 07/27 tablet,extended release,12 hr duloxetine 20 mg capsule,delayed 20 mg PO QDAY #30 cap s 10/01/24 release pantoprazole 40 mg tablet,delayed 40 mg PO DAILY #30 t abs 10/01/24 release pregabalin 50 mg capsule 50 mg PO DAILY #30 caps 01/31 09/24 zanubrutinib 80 mg capsule 160 mg (2 x 80 mg) PO BID # 120 caps 02/19/25 (Brukinsa) pravastatin 20 mg tablet 20 mg PO DAILY #30 tabs 08/27 losartan 25 mg tablet 12.5 mg (1/2 x 25 mg) PO DINO LY #30 03/14/25 tabs Allergies Allergy/AdvReac Type Severity Reaction Status Date / Time niacin Allergy Severe ALGY-Difficulty Verified 03/15/25 12:21 Breathing Review of Systems 2 Const: Denies: fever(s) or chills Card: Denies: chest pain Resp: Denies: dyspnea GI: Denies: abdominal pain : Denies: dysuria, urinary frequency or urinary urgency Musc: Denies: neck pain or back pain Skin/Breast: Denies: rash PFSH ED 2 PFSH: Medical History Accelerated essential hypertension Syncope and collapse Surgical History H/O arthroscopy of left knee Family History Denies family history of Diabetes Cancer Hypertension Stroke Social History Smoking and tobacco/nicotine status: never used tobacco/nicotine Alcohol intake: never Substance/Drug Use: never Additional social history: Patient is seen in the emergency department room 4. Her son Patrick is on speaker phone. Patient wants full code as discussed today 03/13/2025 with Mike Naylor MD Physical Exam 2 Const: COMMON NORMALS: no acute distress GENERAL APPEARANCE: cooperative and comfortable ORIENTATION/CONSCIOUSNESS: Yes awake, Yes oriented to person, Yes oriented to place and Yes oriented to time HENMT: COMMON NORMALS: normocephalic, atraumatic and hearing grossly normal bilaterally HEAD & SCALP: normocephalic and atraumatic Resp: COMMON NORMALS: normal respiratory effort, No retractions, No use of accessory muscles and clear to auscultation bilaterally AUSCULTATION: clear to auscultation bilaterally Cardio: COMMON NORMALS: regular rate, regular rhythm and No murmurs present (Cardio) RATE: regular rate RHYTHM: regular rhythm GI: COMMON NORMALS: Soft to palpation and No hepatosplenomegaly present A USCULTATION: Yes normoactive bowel sounds PALPATION: Yes Soft to palpation, No Tenderness to palpation present (GI), No Guarding due to palpation present (GI) and Yes No hepatosplenomegaly present Extremity: COMMON NORMALS: normal to inspection, capillary refill normal, no clubbing, cyanosis or edema, no calf tenderness and no pedal edema Neuro: SENSORIUM/ORIENTATION: Yes oriented to person, Yes oriented to place and Yes oriented to time Skin: COMMON NORMALS: no rashes or lesions noted GENERAL SKIN EXAM: no rashes or lesions noted Course 2 Vital Signs: Vital signs: Vital Signs Temperature 98.1 F 03/18/25 07:15 Pulse Rate 85 03/18/25 07:15 Respiratory Rate 16 03/18/25 07:15 Blood Pressure 168/71 03/18/25 07:15 Pulse Oximetry 97 03/18/25 07:15 Oxygen Delivery Me thod Room Air 03/18/25 07:15 MDM - General Adult Medical Decision Making Blood pressure continues to fluctuate at times she has been too high other times too low. Family is very concerned about the variations. Ultimately recommended observation for medication adjustments. Reading through literature number rinse ago which she takes daily has the potential to cause hypotension and orthostasis. This may need to be held temporarily or the dose adjusted. Discussed with hospitalist orders written for admission Medical Records I reviewed the patient's medical records. Lab Data I reviewed the patient's lab results. 03/18/25 03:07 03/18/25 03:07 Radiology Impressions Abdomen/Pelvis CT 03/17/25 14:26 IMPRESSION: 1. Aortic atherosclerosis. No coronary artery artery calcifications on limited views of the inferior chest. 2. 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 3. Fluid attenuation luminal material within several loops of small bowel, may be related to ingested material although can not exclude mild enteritis or diarrhea related process. 4. No definitive radiographic evidence of adrenal mass. Laboratory Results WBC 3.99 10^3/uL (3.29-11.43) 03/15/25 13:15 RBC 3.52 10^6/uL (3.85-5.65) L 03/15/25 13:15 Hgb 11.20 g/dL (11.27-16.99) L 03/15/25 13:15 Hct 33.2 % (36-47) L 03/15/25 13:15 MCV 94.3 fl (85-98) 03/15/25 13:15 MCH 31.8 pg (27-33) 03/15/25 13:15 MCHC 33.7 g/dL (30-55) 03/15/25 13:15 RDW 13.9 % (12.1-15.1) 03/15/25 13:15 Plt Count 180 10^3/cmm (157-399) 03/15/25 13:15 MPV 11.8 fL (7.4-10.4) H 03/15/25 13:15 Neut % (Auto) 37.2 % 03/15/25 13:15 Lymph % (Auto) 35.8 % 03/15/25 13:15 [place] % (Auto) 23.6 % 03/15/25 13:15 Eos % (Auto) 1.8 % 03/15/25 13:15 Baso % (Auto) 1.3 % 03/15/25 13:15 Neut # (Auto) 1.49 10^3/uL (1.8-7.7) L 03/15/25 13:15 Lymph # (Auto) 1.4 10^3/uL (0.8-4.8) 03/15/25 13:15 [place] # (Auto) 0.9 10^3/uL (0.2-0.9) 03/15/25 13:15 Eos # (Auto) 0.1 10^3/uL (0.0-0.8) 03/15/25 13:15 Baso # (Auto) 0.1 10^3/uL (0.0-0.1) 03/15/25 13:15 Nucleated RBC % (auto) 0 % 03/15/25 13:15 Nucleated RBCs # 0.0 /100WBC 03/15/25 13:15 Sodium 142 mmol/L (136-145) 03/16/25 02:00 Potassium 3.0 mmol/L (3.5-5.1) L 03/16/25 02:00 Chloride 107 mmol/L (98-107) 03/16/25 02:00 Carbon Dioxide 26 mmol/L (22-29) 03/16/25 02:00 Anion Gap 12.0 (5-19) 03/16/25 02:00 BUN 14 mg/dL (8-23) 03/16/25 02:00 Creatinine 0.6 mg/dL (0.5-0.9) 03/16/25 02:00 GFR Calculation Not Reportable 03/16/25 02:00 Glucose 85 mg/dL (65-115) 03/16/25 02:00 Calculated Osmolality 294 mOsm/kg (285-295) 03/16/25 02:00 Calcium 8.5 mg/dL (8.5-10.5) 03/16/25 02:00 Magnesium 1.8 mg/dL (1.7-2.3) 03/16/25 02:00 Total Bilirubin 0.2 mg/dL (0.15-1.2) 03/15/25 13:15 AST 14 U/L (0-32) 03/15/25 13:15 ALT 8 U/L (0-33) 03/15/25 13:15 Alkaline Phosphatase 79 U/L (35-105) 03/15/25 13:15 Total Protein 6.2 g/dL (6.6-8.7) L 03/15/25 13:15 Albumin 3.8 g/dL (3.5-5.2) 03/15/25 13:15 Globulin 2.4 g/dL (1.3-4.6) 03/15/25 13:15 Random Cortisol 5.87 ug/dL (2.47-19.5) 03/16/25 02:00 Cortisol Response 03/16/25 08:59 Urine Color Yellow (Yellow) 03/15/25 12:55 Urine Appearance Clear (CLEAR) 03/15/25 12:55 Urine pH 7.0 (5-7) 03/15/25 12:55 Ur Specific [place] 1.007 (1.005-1.030) 03/15/25 12:55 Urine Protein Negative (Negative) 03/15/25 12:55 Urine Glucose (UA) Negative (Normal) 03/15/25 12:55 Urine Ketones Negative (Negative) 03/15/25 12:55 Urine Blood Negative (Negative) 03/15/25 12:55 Urine Nitrate Negative (Negative) 03/15/25 12:55 Urine Bilirubin Negative (Negative) 03/15/25 12:55 Urine Urobilinogen 0.2 mg/dL (Negative) 03/15/25 12:55 Ur Leukocyte Esterase 1+ (Negative) A 03/15/25 12:55 Urine RBC 0-2 /hpf (0-2) 03/15/25 12:55 Urine WBC 0-5 /hpf (0-5) 03/15/25 12:55 Ur Squamous Epith Cells 0-5 /hpf (0-5) 03/15/25 12:55 Amorphous Sediment Not Reportable 03/15/25 12:55 Urine Bacteria None seen /hpf (NONE) 03/15/25 12:55 Hyaline Casts 0-4 /lpf H 03/15/25 12:55 No radiology studies performed this visit Discharge Plan Discharge Patient Disposition: Admitted As Inpatient Admit Provider: Rohan Mahan Clinical Impression: Accelerated essential hypertension, Orthostatic hypotension, CLL (chronic lymphocytic leukemia), Syncope and collapse Condition: Stable Coding Level of Care Code ED Aquatic Habitat Biologist for June Rosas
[2025-03-15 13:30] LABS: Hematocrit 33.2 % (36-47); Hemoglobin 11.20 g/dL (11.27-16.99); Mean Corpuscular HGB Conc 33.7 g/dL (30-55); Mean Corpuscular Hemoglobin 31.8 pg (27-33); Mean Corpuscular Volume 94.3 fl (85-98); Nucleated Red Blood Cells % 0 %; Platelet Count 180 10^3/cmm (157-399); Red Blood Count 3.52 10^6/uL (3.85-5.65); White Blood Count 3.99 10^3/uL (3.29-11.43)
[2025-03-15 13:30] LABS: Glucose Urine UA Negative (Normal); Nitrate Urine Negative (Negative); Specific Gravity, Urine 1.007 (1.005-1.030)
[2025-03-15 13:36] LABS: Add Urine Microscopic? YES
[2025-03-15 13:45] LABS: Alanine Aminotransferase 8 U/L (0-33); Albumin Level 3.8 g/dL (3.5-5.2); Alkaline Phosphatase 79 U/L (35-105); Anion Gap 15.5 (5-19); Aspartate Amino Transferase 14 U/L (0-32); Blood Urea Nitrogen 14 mg/dL (8-23); Calcium 9.2 mg/dL (8.5-10.5); Carbon Dioxide 26 mmol/L (22-29); Chloride 102 mmol/L (98-107); Creatinine Clr Calc Pharmacy 50.4700; Globulin 2.4 g/dL (1.3-4.6); Glucose 86 mg/dL (65-115); Osmolality Calculated 290 mOsm/kg (285-295); Potassium 3.5 mmol/L (3.5-5.1); Sodium 140 mmol/L (136-145); Total Protein 6.2 g/dL (6.6-8.7)
[2025-03-15 13:58] LABS: Slide Review Slide Review Perform
--- NOTE | 2025-03-15 18:10 | P.HP_ITS ---
Providers/Chief Complaint 2 Admitting Physician: Rohan Mahan DO Primary Care Provider: BRINA Hickman Chief Complaint: High bp History of Present Illness Perlita Corey is a 84 year old female returns to the ER today after discharge yesterday for another syncopal episode. Patient has a complicated history after spending 1 month at [facility] in August and August. She presented with weakness and clumsiness in her legs. 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 They also said it is causing her headaches with sharp stabbing facial pain in the trigeminal region. She underwent inpatient IV chemotherapy and subsequently oral therapy. She was discharged home on zanubrutinib (Brukinsa). In this last hospitalization the physician felt patient was having side effects from Brukinsa. Presents because cause of syncope is a direct result of cardiac arrhythmias. Patient was monitored for almost 24 hours without arrhythmia identified. Presents got is probably most famous for GI upset but also neurologically dizziness fatigue and headache. Also during the last hospitalization she was orthostatic. Her blood pressure medications were altered and overall decreased. The son reports that her blood pressure was over 200 this evening and [employer] said this was dangerous and the patient should go to the emergency room. The patient's symptoms remain the same she is dizzy and lightheaded with a severe headache. She rates the headache 7 out of 10. These are her usual symptoms since starting chemotherapy back in August. Reportedly herself and her son have been resistant to stopping the Oral chemotherapy agent. I see that she is on Tegretol for the trigeminal neuralgia reportedly from CLL. The patient and son are in agreement to b admitted under observation status overnight. Review of Systems 2 General: Reports: Other (No change from prior H&P 2 days prior) Medications/Allergies Home Medications ?Medication ?Instructions ?Recorded ?Confirmed ?Last Taken ?Type acyclovir 400 mg tablet 400 mg PO BID #60 tabs 10/0103/15/25 03/13/25 Rx carbamazepine 100 mg 100 mg PO DAILY #30 tabs 07/2703/15/25 03/15/25 08:00 Rx tablet,extended release,12 hr duloxetine 20 mg capsule,delayed 20 mg PO QDAY #30 cap s 10/01/24 03/15/25 03/15/25 08:00 Rx release pantoprazole 40 mg tablet,delayed 40 mg PO DAILY #30 t abs 10/01/24 03/15/25 03/15/25 09:00 Rx release pregabalin 50 mg capsule 50 mg PO DAILY #30 caps 01/3103/15/25 03/14/25 19:00 Rx zanubrutinib 80 mg capsule 160 mg (2 x 80 mg) PO BID # 120 caps 02/19/25 03/15/25 03/15/25 08:00 Rx (Brukinsa) pravastatin 20 mg tablet 20 mg PO DAILY #30 tabs 08/2703/15/25 03/14/25 19:00 Rx acetaminophen 500 mg tablet 500 mg PO Q6H PRN Pain 05/2703/15/25 Unknown History losartan 25 mg tablet 12.5 mg (1/2 x 25 mg) PO DINO LY #30 03/14/25 03/15/25 03/14/25 19:00 Rx tabs vit A 300 mcg-C 200 mg-E 27 1 tab PO DAILY 03/15/2503/14/25 History mg-lutein 2 mg and minerals tablet (Healthy [facility]) Allergies Allergy/AdvReac Type Severity Reaction Status Date / Time niacin Allergy Severe ALGY-Difficulty Verified 03/15/25 12:21 Breathing PFSH Acute 2 PFSH: Medical History Accelerated essential hypertension Syncope and collapse Surgical History H/O arthroscopy of left knee Family History Denies family history of Diabetes Cancer Hypertension Stroke Social History Smoking and tobacco/nicotine status: never used tobacco/nicotine Alcohol intake: never Substance/Drug Use: never Additional social history: Patient is seen in the emergency department room 4. Her son Patrick is on speaker phone. Patient wants full code as discussed today 03/13/2025 with Mike Naylor MD Vitals/I&O/Wt Last Vital Signs Temp 97.9 F 03/15/25 12:18 Pulse 84 03/15/25 18:01 Resp 16 03/15/25 18:01 BP 156/48 03/15/25 18:01 Pulse Ox 96 03/15/25 18:01 O2 Del Method Room Air 03/15/25 17:38 03/15/25 03/15/25 03/15/25 06:59 14:59 22:59 Intake Total 0 / 0 Balance 0 / 0 Weight last 48 hrs Weight 58.967 kg Physical Exam 2 Narrative: Patient is alert appears her stated age of 84. She has a flushed face. HEENT head is normocephalic and atraumatic pupils equal round reactive to light and accommodation extraocular muscles are intact there is no scleral icterus mucous membranes are moist and pink Neck is supple no JVDs carotid bruit or lymphadenopathy Heart is regular normal S1-S2 without murmurs clicks gallops or rubs Lungs are clear to auscultation without wheezes rales or rhonchi Abdomen is soft nontender nondistended positive bowel sounds Extremities mild to moderate puffy nonpitting edema in the bilateral lower extremities equal. Skin no rashes or lesions identified Psych mood and affect are appropriate for illness and condition Back no significant kyphosis or scoliosis no CVA tenderness Data 03/15/25 13:15 03/15/25 13:15 A&P Assessment and plan 1. Syncope and collapse: Patient be admitted to telemetry on CSU. Orthostatic blood pressures will be checked in the a.m. Normal saline overnight. Hold usual blood pressure medications. Ordered hydralazine 25 mg p.o. every 6 hours for systolic blood pressure greater than 180 or diastolic pressure greater than 110. 2. CLL (chronic lymphocytic leukemia): Normal white count Review of our imaging does not show the abnormalities as found in [place]; which I found in Dr. Sanchez's note dated 03/11/2025. It is reported that the MRI on August 16 showed hyperintensity in the mid to lower and upper cervical spinal cord there was extension superior to the level of the joshua. It was also involving the root entry zone in the left trigeminal nerve. MRI of the spine on August 18 shows large expansile enhancing T2 to*hyperintensity lesion centered in the cervical medullary junction upper thoracic spinal cord and conus. Of note the patient was presented at the multidisciplinary lymphoma conference on August 27, 2024. Initially patient was treated Gazyva single agent August 28, 2024 and she had 3 weekly dose finished September 10, 2024 Zanubrutinib 160 mg twice daily was added August 30, 2024 he had a long hospitalization at [facility]. Was discharged September 30. The recommendation is continue full dose of Brukinsa without Gazyva. She is also on acyclovir 400 mg p.o. twice daily. At this time with multiple admissions to the hospital, multiple syncopal episodes resulting in unresponsiveness as well as, labile blood pressure I highly recommend stopping Brukinsa. This was discussed with the patient and son and they are agreeable at this time 3. Accelerated essential hypertension: In the ER her blood pressure is 167/82 Blood pressure plan as above in #1 4. Cerebral atrophy: Patient shows moderate cerebral atrophy on MRI dated 03/04/2025 Could patient be showing us a neurologic disorder that may include orthostatic hypotension? 5. Small vessel disease, cerebrovascular: Plan: Observation status to the cardiac stepdown unit IV fluid hydration Orthostatic vital signs in a.m. Control of hypertension as above Cortisol level in a.m. I am ordering this lab in case patient has adrenal insufficiency. I do not see that she has been on steroids but I wonder if she was on steroids during her prolonged hospitalization at [place] and if she is has adrenal insufficiency. I also will increase her carbamaepine for her headache syndrome. It is interesting to me that the MRI reported left trigeminal nerve nerve improvement and less this is typing error. Her symptoms are on the right. Will also add vitamin B6 for nerve pain PDMP PDMP Reviewed: Not Reviewed Attestations 2 Medical Necessity Statement*: Patient's hospital stay is expected to be less than 2 midnights. Coding Level of Care Code Acute Code for Chg Fwd Diagnoses Syncope and collapse R55 CLL (chronic lymphocytic leukemia) C91.10 Accelerated essential hypertension I10 Cerebral atrophy G31.9 Small vessel disease, cerebrovascular I67.9
[2025-03-15] MEDS: heparin 5,000 unit/mL INJ 1 mL 5000 UNIT SUBCUT (20:02)
[2025-03-16] VITALS (9 sets, daily range): BP systolic 136–181; BP diastolic 61–96; PULSE 18–90; RESP 15–22; TEMP 36.6–37.2; O2SAT 95–99
[2025-03-16] MEDS: heparin 5,000 unit/mL INJ 1 mL 5000 UNIT SUBCUT ×3 (01:57→20:14)
[2025-03-16 04:26] LABS: Anion Gap 12.0 (5-19); Blood Urea Nitrogen 14 mg/dL (8-23); Calcium 8.5 mg/dL (8.5-10.5); Carbon Dioxide 26 mmol/L (22-29); Chloride 107 mmol/L (98-107); Creatinine Clr Calc Pharmacy 50.4700; Glucose 85 mg/dL (65-115); Magnesium 1.8 mg/dL (1.7-2.3); Osmolality Calculated 294 mOsm/kg (285-295); Potassium 3.0 mmol/L (3.5-5.1); Sodium 142 mmol/L (136-145)
--- NOTE | 2025-03-16 09:09 | PC.NURSE ---
Nursing verified with provider that NS can be held for now. Patient will be given her 0900 dose of Florinef after cortisol level labs are drawn around 1000.
[2025-03-16] MEDS: carBAMazepine XR (12 HR) 100 mg Tablet 200 MG PO ×2 (09:27→20:14)
[2025-03-16] MEDS: cosyntropin 0.25 mg SDV IVP (09:35)
[2025-03-16 09:40] LABS: Cosyntropin Baseline 19.52 mcg/dL
[2025-03-16 10:56] LABS: Cosyntropin 30 Minute 25.19 mcg/dL
[2025-03-16 11:24] LABS: Cosyntropin 1 Hour 29.53 mcg/dL
--- NOTE | 2025-03-16 14:00 | PM.PN ---
Subjective Subjective: Patient feeling better today. Her son remains skeptical about stopping the chemotherapy pill However he is in agreement that mom needs more help. Vitals/I&O/Wt Last Vital Signs Temp 97.9 F 03/16/25 12:00 Pulse 88 03/16/25 12:00 Resp 15 03/16/25 12:00 BP 162/91 03/16/25 12:00 Pulse Ox 96 03/16/25 12:00 O2 Del Method Room Air 03/16/25 03:46 03/15/25 03/16/25 03/16/25 22:59 06:59 14:59 Intake Total 1000 / 1000 240 / 240 Balance 1000 / 1000 240 / 240 Weight last 48 hrs Weight 62.913 kg Weight 58.967 kg Physical Exam Narrative: No acute distress. Face with normal color. Heart is regular normal S1-S2 without murmurs clicks gallops or rubs Lungs are clear to auscultation without wheezes rales or rhonchi Abdomen is soft nontender nondistended positive bowel sounds Extremities mild to moderate puffy nonpitting edema in the bilateral lower extremities equal. Data 03/15/25 13:15 03/16/25 02:00 Other Labs: Cosyntropin test Baseline 19 30 minutes 25 60 minutes 29 TSH normal A&P Assessment and plan 1. Orthostatic hypotension: This has been documented not only this admission but last. Despite IV hydration patient remains orthostatic. This morning's orthostatics were lying systolic blood pressure 180, sitting systolic blood pressure 160, standing systolic blood pressure 140. Patient will be started on Florinef 0.1 mg every morning. Gave first dose late morning 2. Adrenal insufficiency: Positive cosyntropin stim test It is unclear why she would have adrenal insufficiency. I double checked the side effects with her oral chemotherapy agent and I do not see it listed. I wonder if she was exposed to steroids at [facility]. She does not recall. She will need a workup with an patch machine operator as an outpatient 3. Syncope and collapse: Most likely for the combination of adrenal insufficiency and orthostatic hypotension 4. CLL (chronic lymphocytic leukemia): Normal white count Review of our imaging does not show the abnormalities as found in [place]; which I found in Dr. Sanchez's note dated 03/11/2025. It is reported that the MRI on August 16 showed hyperintensity in the mid to lower and upper cervical spinal cord there was extension superior to the level of the joshua. It was also involving the root entry zone in the left trigeminal nerve. MRI of the spine on August 18 shows large expansile enhancing T2 to*hyperintensity lesion centered in the cervical medullary junction upper thoracic spinal cord and conus. Of note the patient was presented at the multidisciplinary lymphoma conference on August 27, 2024. Initially patient was treated Gazyva single agent August 28, 2024 and she had 3 weekly dose finished September 10, 2024 Zanubrutinib 160 mg twice daily was added August 30, 2024 he had a long hospitalization at [facility]. Was discharged September 30. The recommendation is continue full dose of Brukinsa without Gazyva. She is also on acyclovir 400 mg p.o. twice daily. I rediscussed with them stopping Brusinka. While I realize that patient has a rare form of CLL with deposits in the spinal cord and around the trigeminal nerve I am very concerned that this is causing hypertension and the interaction with the newly diagnosed orthostatic hypotension and adrenal insufficiency is the major cause of her syncope and collapse. Patient has follow-up with her oncologist at [place] on April 08. I recommend oral chemotherapy until seen by oncology. 5. Accelerated essential hypertension: Patient did not have hypertension prior to the initiation of chemotherapy agents in August. I am hopeful that her blood pressure will be easily managed after withdrawal Brusinka. 6. Cerebral atrophy: Patient shows moderate cerebral atrophy on MRI dated 03/04/2025 Could patient be showing us a neurologic disorder that may include orthostatic hypotension? I recommend further workup back at [place] or other tertiary level care center if her symptomatology does not improve with stopping chemo and the addition of the steroids. 7. Small vessel disease, cerebrovascular: Plan: Patient has a very complicated history with CLL. This is her second admission in less than a week she failed outpatient therapy. She has been newly diagnosed with orthostatic hypotension and adrenal insufficiency of unknown etiology. Patient lives home alone. She has a son visiting from [facility]. I would like to initiate treatment with hydrocortisone and Florinef with the addition of her home dose of losartan to see how her blood pressures range before sending her home. Patient is at high risk of fall and fracture in an elderly white female. PDMP PDMP Reviewed: Not Reviewed Attestations Medical Necessity Statement*: Patient is changed to a full admission for the treatment of 2 new diagnoses. She requires new medications and close follow-up of blood pressure to avoid syncope and collapse. Patient is high risk for further complications based on her medical history Coding Level of Care Code Acute Code for Chg Fwd Diagnoses Orthostatic hypotension I95.1 Adrenal insufficiency E27.40 Syncope and collapse R55 CLL (chronic lymphocytic leukemia) C91.10 Accelerated essential hypertension I10 Cerebral atrophy G31.9 Small vessel disease, cerebrovascular I67.9
[2025-03-16] MEDS: potassium chloride oral liq 20 mEq/15 mL UDC 40 MEQ PO (16:44)
[2025-03-17] VITALS (10 sets, daily range): BP systolic 135–181; BP diastolic 73–114; PULSE 67–86; RESP 15–21; TEMP 36.5–37.1; O2SAT 95–97
[2025-03-17 01:41] LABS: Anion Gap 12.8 (5-19); Blood Urea Nitrogen 18 mg/dL (8-23); Calcium 8.7 mg/dL (8.5-10.5); Carbon Dioxide 25 mmol/L (22-29); Chloride 106 mmol/L (98-107); Creatinine Clr Calc Pharmacy 53.8474; Glucose 130 mg/dL (65-115); Osmolality Calculated 294 mOsm/kg (285-295); Potassium 3.8 mmol/L (3.5-5.1); Sodium 140 mmol/L (136-145)
[2025-03-17] MEDS: heparin 5,000 unit/mL INJ 1 mL 5000 UNIT SUBCUT ×3 (02:24→20:30)
[2025-03-17] MEDS: carBAMazepine XR (12 HR) 100 mg Tablet 200 MG PO ×2 (08:10→20:27)
--- NOTE | 2025-03-17 08:55 | PM.PN ---
Subjective Subjective: Patient has not had any orthostatic drops today. Systolic blood pressure between 140-160 today. Tolerating addition of losartan and hydrocortisone Florinef. Medications: Reviewed: Yes Vitals/I&O/Wt Last Vital Signs Temp 98.0 F 03/17/25 07:13 Pulse 80 03/17/25 07:14 Resp 19 H 03/17/25 07:13 BP 152/83 03/17/25 08:10 Pulse Ox 97 03/17/25 07:13 O2 Del Method Room Air 03/17/25 07:13 03/16/25 03/17/25 03/17/25 22:59 06:59 14:59 Intake Total 480 / 1080 240 / 240 Balance 480 / 1080 240 / 240 Weight last 48 hrs Weight 64.093 kg Weight 62.913 kg Weight 58.967 kg Physical Exam Narrative: General: No acute distress, AO x3 HEENT: PERRLA, pupils bilaterally equal and reactive, pallors not present Chest: Normal vesicular breath sounds, no added sounds, equal good air entry bilaterally CVS: S1-S2 regular, no murmurs, no tachycardia, no gallops, no rubs Abdomen: Soft, nontender, no organomegaly, bowel sounds present Neuro: No focal deficits, no facial deformity, AO x3, power 5/5 in all limbs Data 03/15/25 13:15 03/17/25 01:03 A&P Assessment and plan 1. Orthostatic hypotension: This has been documented not only this admission but last. Despite IV hydration patient remains orthostatic. This morning's orthostatics were lying systolic blood pressure 180, sitting systolic blood pressure 160, standing systolic blood pressure 140. Patient will be started on Florinef 0.1 mg every morning. Gave first dose late morning 2. Adrenal insufficiency: Positive cosyntropin stim test It is unclear why she would have adrenal insufficiency. I double checked the side effects with her oral chemotherapy agent and I do not see it listed. I wonder if she was exposed to steroids at [facility]. She does not recall. She will need a workup with an cost control analyst as an outpatient 3. Syncope and collapse: Most likely for the combination of adrenal insufficiency and orthostatic hypotension 4. CLL (chronic lymphocytic leukemia): Normal white count Review of our imaging does not show the abnormalities as found in [place]; which I found in Dr. Sanchez's note dated 03/11/2025. It is reported that the MRI on August 16 showed hyperintensity in the mid to lower and upper cervical spinal cord there was extension superior to the level of the joshua. It was also involving the root entry zone in the left trigeminal nerve. MRI of the spine on August 18 shows large expansile enhancing T2 to*hyperintensity lesion centered in the cervical medullary junction upper thoracic spinal cord and conus. Of note the patient was presented at the multidisciplinary lymphoma conference on August 27, 2024. Initially patient was treated Gazyva single agent August 28, 2024 and she had 3 weekly dose finished September 10, 2024 Zanubrutinib 160 mg twice daily was added August 30, 2024 he had a long hospitalization at [facility]. Was discharged September 30. The recommendation is continue full dose of Brukinsa without Gazyva. She is also on acyclovir 400 mg p.o. twice daily. I rediscussed with them stopping Brusinka. While I realize that patient has a rare form of CLL with deposits in the spinal cord and around the trigeminal nerve I am very concerned that this is causing hypertension and the interaction with the newly diagnosed orthostatic hypotension and adrenal insufficiency is the major cause of her syncope and collapse. Patient has follow-up with her oncologist at [place] on April 08. I recommend oral chemotherapy until seen by oncology. 5. Accelerated essential hypertension: Patient did not have hypertension prior to the initiation of chemotherapy agents in August. I am hopeful that her blood pressure will be easily managed after withdrawal Brusinka. 6. Cerebral atrophy: Patient shows moderate cerebral atrophy on MRI dated 03/04/2025 Could patient be showing us a neurologic disorder that may include orthostatic hypotension? I recommend further workup back at [place] or other tertiary level care center if her symptomatology does not improve with stopping chemo and the addition of the steroids. 7. Small vessel disease, cerebrovascular: Plan: Patient has a very complicated history with CLL. This is her second admission in less than a week she failed outpatient therapy. She has been newly diagnosed with orthostatic hypotension and adrenal insufficiency of unknown etiology. Patient lives home alone. She has a son visiting from [facility]. I would like to initiate treatment with hydrocortisone and Florinef with the addition of her home dose of losartan to see how her blood pressures range before sending her home. Patient is at high risk of fall and fracture in an elderly white female. March 17, 2025 Chart reviewed. Patient is an 84-year-old lady diagnosed with CLL with meningeal involvement. She was diagnosed in August 2024 after a CSF puncture revealed monoclonal B-cell morphology. MRI of the brain showed hyperintensity in the medulla and upper cervical spinal cord. Left trigeminal nerve was additionally involved. There was a large expansile hyperintensity at the cervical medullary junction of the spinal cord and conus.Patient started treatment with obinutuzumab between August to August 2024. Thereafter she was switched to Zanubrutinib. Recently admitted here between March 13 to March 15, 2025 after her son noticed slow responses, and an unresponsive episode for 15 seconds. It appears she had a syncopal episode. Amlodipine was discontinued due to orthostatic hypotension. Carotid Doppler showed 50 to 60% narrowing on the left carotid, less than 50% on the right. I did not see an echocardiogram on file though the past discharge summary states that an echo was performed. Will reach out to [facility] to follow-up on these results. She is on chronic acyclovir prophylaxis. She returned to the hospital on March 15, 2025 after she was noted to have a blood pressure of 200 systolic. Reportedly had additional syncopal episode after discharge. She was diagnosed with adrenal insufficiency and started on fludrocortisone 0.1 mg p.o. daily and hydrocortisone 15 mg p.o. daily. In addition losartan has been continued. Her blood pressure is 152/83 without any noted orthostatic drop. She has just received losartan an hour ago. We will monitor her blood pressure trend today and for any recurrent signs of syncope. In the interim cause of the adrenal insufficiency is not clear. Patient has not recently been on any steroids. Adrenal insufficiency is not a known side effect of Zanubrutinib. Case was discussed with patient's oncologist Dr. Sanchez. Recommended to continue Zanubrutinib and additionally obtain CT of the abdomen and pelvis to assess for any adrenal involvement with her known malignancy. Disposition : Home health being arranged; patient's family considering transition into assisted living. PDMP PDMP Reviewed: Not Reviewed Attestations Medical Necessity Statement*: Needs CT of the abdomen and pelvis today. Closely monitor blood pressure trend with antihypertensives and adrenal replacement Coding Level of Care Code Acute Code for Chg Fwd Diagnoses Orthostatic hypotension I95.1 Adrenal insufficiency E27.40 Syncope and collapse R55 CLL (chronic lymphocytic leukemia) C91.10 Accelerated essential hypertension I10 Cerebral atrophy G31.9 Small vessel disease, cerebrovascular I67.9
--- NOTE | 2025-03-17 09:28 | PC.CHAP ---
Pastoral Care Encounter/Spiritual Assessment Type of Contact [] Declined marine drafter visit [] Patient/Family/Request visit [] Outpatient visit [] Follow-up visit [] Physician referral [] Code/Alert [x] Routine visit [] Staff referral [] Actively dying [] Patient sleeping [] Family support [] [] Out of room [] Palliative care [] [] Receiving care in room [] Pre-surgical visit [] Trauma [] Long length of stay [] ICU visit [] Other: Relational/Emotional Strength [] Patient feels connected with others/family/visitors/staff [] Distress [] Loneliness/isolation [] Abandonment Spirituality of Patient [x] Person of January [] Attends Lutheran of their January [x] Believes in Prayer [] Reads Bible or Jewish materials [] There are Spiritual issues to be addressed Gore Cutter Interventions [x] Prayer [x] Active listening [] Non-anxious presence [] Spiritual/emotional support [] Crisis/trauma care [] Spiritual counseling [] Bereavement support [] Provided bereavement packet [x] Provided Bible/devotional materials [] Provided toy/stuffed animal, coloring book to patient or family member [] Provided Communion [] Anointing/[place] [] Salvation [x] Completed spiritual assessment [] Other: Impact on Illness or Injury [] Angry [] Fearful [] Anxious [] Often cries [] Exhaustion [] Unable to work [] Unable to attend congregation [] Unable to walk/stand [] Unable to read [] Unable to drive [] Unable to eat/drink [] Unable to sleep [] Unable to be with family [] Patient intubated [] Other: Summary Time spent with patient 15 min
--- NOTE | 2025-03-17 14:26 | CTR_ITS ---
PROCEDURE INFORMATION: Exam: CT Abdomen And Pelvis With Contrast Exam date and time: 03/17/2025 7:36 PM Age: 84 years old Clinical indication: Abnormal findings; Abnormal lab test; Abnormal kidney function lab tests; Prior surgery; Surgery date: 6+ months; Surgery type: Tubal ligation; Additional info: Evaluate for adrenal mass, known cll on chemo now with adrenal insufficiency, assess TECHNIQUE: Imaging protocol: Computed tomography of the abdomen and pelvis with contrast. Radiation optimization: All CT scans at this facility use at least one of these dose optimization techniques: automated exposure control; mA and/or kV adjustment per patient size (includes targeted exams where dose is matched to clinical indication); or iterative reconstruction. Contrast material: OMNIPAQUE 350; Contrast volume: 100 ml; Contrast route: INTRAVENOUS (IV); COMPARISON: CT chest abdpel w/*[id number] 12/09/2024 1:18 PM RADIATION DOSE METRICS: Total DLP (mGy-cm): 555.83 FINDINGS: Liver: Normal. No mass. Gallbladder and biliary ducts: Normal. No calcified stones. No ductal dilation. Pancreas: Normal. No ductal dilation. Spleen: Normal. No splenomegaly. Adrenal glands: No definitive radiographic evidence of adrenal mass. Kidneys and ureters: Normal. No hydronephrosis. Stomach and bowel: Fluid attenuation luminal material within several loops of small bowel, may be related to ingested material although can not exclude mild enteritis or diarrhea related process. Appendix: No evidence of appendicitis. Intraperitoneal space: Unremarkable. No free air. No significant fluid collection. Vasculature: Aortic atherosclerosis. No coronary artery artery calcifications on limited views of the inferior chest. Lymph nodes: Unremarkable. No enlarged lymph nodes. Urinary bladder: Unremarkable as visualized. Reproductive: Unremarkable as visualized. Bones/joints: Mild degenerative changes of the lumbar vertebrae. Soft tissues: Unremarkable. Other findings: Varicosities arising from the left gonadal, nonspecific, may be related to pelvic congestion. CT/CT abdomen pelvis w con* [id number] IMPRESSION: 1. Aortic atherosclerosis. No coronary artery artery calcifications on limited views of the inferior chest. 2. 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 3. Fluid attenuation luminal material within several loops of small bowel, may be related to ingested material although can not exclude mild enteritis or diarrhea related process. 4. No definitive radiographic evidence of adrenal mass.
[2025-03-17] MEDS: iohexol 350 mg/mL 500 mL Btl (per mL) IV (19:40)
[2025-03-17] MEDS: ZANUBRUTINIB 80 MG 160 EACH PO (20:27)
[2025-03-17] MEDS: lactulose oral liq 20 gm/30 mL UDC 30 GM PO (20:28)
[2025-03-18] MEDS: lactulose oral liq 20 gm/30 mL UDC 30 GM PO (01:50)
[2025-03-18 03:16] VITALS: BP 156/83; PULSE 72; RESP 15; TEMP 36.9; O2SAT 96
[2025-03-18 03:33] LABS: Hematocrit 31.7 % (36-47); Hemoglobin 10.50 g/dL (11.27-16.99); Mean Corpuscular HGB Conc 33.1 g/dL (30-55); Mean Corpuscular Hemoglobin 31.2 pg (27-33); Mean Corpuscular Volume 94.1 fl (85-98); Nucleated Red Blood Cells % 0 %; Platelet Count 156 10^3/cmm (157-399); Red Blood Count 3.37 10^6/uL (3.85-5.65); White Blood Count 3.95 10^3/uL (3.29-11.43)
[2025-03-18] MEDS: heparin 5,000 unit/mL INJ 1 mL 5000 UNIT SUBCUT (03:33)
[2025-03-18 03:55] LABS: Alanine Aminotransferase 12 U/L (0-33); Albumin Level 3.7 g/dL (3.5-5.2); Alkaline Phosphatase 75 U/L (35-105); Anion Gap 13.6 (5-19); Aspartate Amino Transferase 17 U/L (0-32); Blood Urea Nitrogen 14 mg/dL (8-23); Calcium 9.0 mg/dL (8.5-10.5); Carbon Dioxide 27 mmol/L (22-29); Chloride 106 mmol/L (98-107); Creatinine Clr Calc Pharmacy 54.8574; Globulin 2.1 g/dL (1.3-4.6); Glucose 106 mg/dL (65-115); Osmolality Calculated 297 mOsm/kg (285-295); Potassium 3.6 mmol/L (3.5-5.1); Sodium 143 mmol/L (136-145); Total Protein 5.8 g/dL (6.6-8.7)
[2025-03-18 05:27] VITALS: BMI 28.0
[2025-03-18 07:15] VITALS: BP 168/71; PULSE 85; RESP 16; TEMP 36.7; O2SAT 97
[2025-03-18] MEDS: ZANUBRUTINIB 80 MG 160 EACH PO (08:31)
[2025-03-18] MEDS: carBAMazepine XR (12 HR) 100 mg Tablet 200 MG PO (08:32)
[2025-03-18 08:33] VITALS: BP 168/71
[2025-03-18 09:49] VITALS: BP 151/79; BP 159/75; BP 161/92; PULSE 85; PULSE 88
[2025-03-18 09:59] VITALS: BP 159/75; PULSE 88; RESP 19; O2SAT 95
--- NOTE | 2025-03-18 10:50 | PC.NURSE ---
discharge instructions given and explained.pt verb understanding of instructions.discharged via w/c to exit at this time.son to drive pt home
--- NOTE | 2025-03-18 14:00 | PM.DCS ---
Discharge Providers Date of Admission: 03/16/25 14:00 Date of Discharge: March 18, 2025 Attending Provider at Admission: Rohan Mahan DO Attending Provider at Discharge: Abby Crouch MD Primary Care Provider: BRINA Hickman Diagnoses at Discharge Discharge Diagnosis 1. Orthostatic hypotension: 2. Adrenal insufficiency: 3. Syncope and collapse: 4. CLL (chronic lymphocytic leukemia): 5. Accelerated essential hypertension: 6. Cerebral atrophy: 7. Small vessel disease, cerebrovascular: Reason for Visit Reason for Visit: High bp Hospital Course Hospital Course Patient is an 84-year-old lady diagnosed with CLL with meningeal involvement. She was diagnosed in August 2024 after a CSF puncture revealed monoclonal B-cell morphology. MRI of the brain showed hyperintensity in the medulla and upper cervical spinal cord. Left trigeminal nerve was additionally involved. There was a large expansile hyperintensity at the cervical medullary junction of the spinal cord and conus.Patient started treatment with obinutuzumab between August to August 2024. Thereafter she was switched to Zanubrutinib. Recently admitted here between March 13 to March 15, 2025 after her son noticed slow responses, and an unresponsive episode for 15 seconds. It appears she had a syncopal episode. Amlodipine was discontinued due to orthostatic hypotension. Carotid Doppler showed 50 to 60% narrowing on the left carotid, less than 50% on the right. Echocardiogram showed normal EF, no valvular defects. She is on chronic acyclovir prophylaxis. She returned to the hospital on March 15, 2025 after she was noted to have a blood pressure of 200 systolic. Reportedly had additional syncopal episode in ER and was found to have orthostatic hypotension. She was diagnosed with adrenal insufficiency based on ACTH sim test and started on fludrocortisone 0.1 mg p.o. daily and hydrocortisone 15 mg p.o. daily. Orthostatic hypotension has now resolved. Cause of the adrenal insufficiency is not clear. Patient has not recently been on any steroids. Adrenal insufficiency is not a known side effect of Zanubrutinib. Case was discussed with patient's oncologist Dr. Sanchez. Recommended to continue Zanubrutinib and additionally. CT of the abdomen and pelvis was performed, there was no sign of adrenal malignancy. Physical Exam Narrative: General: No acute distress, AO x3 HEENT: PERRLA, pupils bilaterally equal and reactive, pallors not present Chest: Normal vesicular breath sounds, no added sounds, equal good air entry bilaterally CVS: S1-S2 regular, no murmurs, no tachycardia, no gallops, no rubs Abdomen: Soft, nontender, no organomegaly, bowel sounds present Neuro: No focal deficits, no facial deformity, AO x3, power 5/5 in all limbs Discharge Data Studies Completed and Pending Completed Studies During Hospitalization Category Date Time Status CT abdomen pelvis w con* [id number] Routine Cat Scan 03/17/25 14:26 Completed Radiology Impressions Abdomen/Pelvis CT 03/17/25 14:26 IMPRESSION: 1. Aortic atherosclerosis. No coronary artery artery calcifications on limited views of the inferior chest. 2. 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 3. Fluid attenuation luminal material within several loops of small bowel, may be related to ingested material although can not exclude mild enteritis or diarrhea related process. 4. No definitive radiographic evidence of adrenal mass. Laboratory Results WBC 3.95 10^3/uL (3.29-11.43) 03/18/25 03:07 RBC 3.37 10^6/uL (3.85-5.65) L 03/18/25 03:07 Hgb 10.50 g/dL (11.27-16.99) L 03/18/25 03:07 Hct 31.7 % (36-47) L 03/18/25 03:07 MCV 94.1 fl (85-98) 03/18/25 03:07 MCH 31.2 pg (27-33) 03/18/25 03:07 MCHC 33.1 g/dL (30-55) 03/18/25 03:07 RDW 14.1 % (12.1-15.1) 03/18/25 03:07 Plt Count 156 10^3/cmm (157-399) L 03/18/25 03:07 MPV 12.1 fL (7.4-10.4) H 03/18/25 03:07 Neut % (Auto) 37.9 % 03/18/25 03:07 Lymph % (Auto) 34.4 % 03/18/25 03:07 Callahan % (Auto) 24.1 % 03/18/25 03:07 Eos % (Auto) 2.3 % 03/18/25 03:07 Baso % (Auto) 1.0 % 03/18/25 03:07 Neut # (Auto) 1.50 10^3/uL (1.8-7.7) L 03/18/25 03:07 Lymph # (Auto) 1.4 10^3/uL (0.8-4.8) 03/18/25 03:07 Callahan # (Auto) 1.0 10^3/uL (0.2-0.9) H 03/18/25 03:07 Eos # (Auto) 0.1 10^3/uL (0.0-0.8) 03/18/25 03:07 Baso # (Auto) 0.0 10^3/uL (0.0-0.1) 03/18/25 03:07 Nucleated RBC % (auto) 0 % 03/18/25 03:07 Nucleated RBCs # 0.0 /100WBC 03/18/25 03:07 Sodium 143 mmol/L (136-145) 03/18/25 03:07 Potassium 3.6 mmol/L (3.5-5.1) 03/18/25 03:07 Chloride 106 mmol/L (98-107) 03/18/25 03:07 Carbon Dioxide 27 mmol/L (22-29) 03/18/25 03:07 Anion Gap 13.6 (5-19) 03/18/25 03:07 BUN 14 mg/dL (8-23) 03/18/25 03:07 Creatinine 0.7 mg/dL (0.5-0.9) 03/18/25 03:07 GFR Calculation Not Reportable 03/18/25 03:07 Glucose 106 mg/dL (65-115) 03/18/25 03:07 Calculated Osmolality 297 mOsm/kg (285-295) H 03/18/25 03:07 Calcium 9.0 mg/dL (8.5-10.5) 03/18/25 03:07 Magnesium 1.8 mg/dL (1.7-2.3) 03/16/25 02:00 Total Bilirubin 0.2 mg/dL (0.15-1.2) 03/18/25 03:07 AST 17 U/L (0-32) 03/18/25 03:07 ALT 12 U/L (0-33) 03/18/25 03:07 Alkaline Phosphatase 75 U/L (35-105) 03/18/25 03:07 Total Protein 5.8 g/dL (6.6-8.7) L 03/18/25 03:07 Albumin 3.7 g/dL (3.5-5.2) 03/18/25 03:07 Globulin 2.1 g/dL (1.3-4.6) 03/18/25 03:07 Random Cortisol 5.87 ug/dL (2.47-19.5) 03/16/25 02:00 Cortisol Response 03/16/25 08:59 Urine Color Yellow (Yellow) 03/15/25 12:55 Urine Appearance Clear (CLEAR) 03/15/25 12:55 Urine pH 7.0 (5-7) 03/15/25 12:55 Ur Specific [place] 1.007 (1.005-1.030) 03/15/25 12:55 Urine Protein Negative (Negative) 03/15/25 12:55 Urine Glucose (UA) Negative (Normal) 03/15/25 12:55 Urine Ketones Negative (Negative) 03/15/25 12:55 Urine Blood Negative (Negative) 03/15/25 12:55 Urine Nitrate Negative (Negative) 03/15/25 12:55 Urine Bilirubin Negative (Negative) 03/15/25 12:55 Urine Urobilinogen 0.2 mg/dL (Negative) 03/15/25 12:55 Ur Leukocyte Esterase 1+ (Negative) A 03/15/25 12:55 Urine RBC 0-2 /hpf (0-2) 03/15/25 12:55 Urine WBC 0-5 /hpf (0-5) 03/15/25 12:55 Ur Squamous Epith Cells 0-5 /hpf (0-5) 03/15/25 12:55 Amorphous Sediment Not Reportable 03/15/25 12:55 Urine Bacteria None seen /hpf (NONE) 03/15/25 12:55 Hyaline Casts 0-4 /lpf H 03/15/25 12:55 Vitals Last Vital Signs Temp 98.1 F 03/18/25 07:15 Pulse 88 03/18/25 09:59 Resp 19 H 03/18/25 09:59 BP 159/75 03/18/25 09:59 Pulse Ox 95 03/18/25 09:59 O2 Del Method Room Air 03/18/25 07:15 Discharge Plan Discharge Patient Disposition: Home Health Service Condition: Stable Prescriptions: New hydralazine 25 mg Tablet 25 mg PO Q8H PRN (Reason: SBP > 180 or DBP >110) 30 Days Qty: 90 0RF hydrocortisone 10 mg Tablet 10 mg PO DAILY@0800 30 Days Qty: 30 0RF hydrocortisone 10 mg Tablet 5 mg PO DAILY@1500 30 Days Qty: 30 0RF fludrocortisone 0.1 mg Tablet 0.1 mg PO DAILY 30 Days Qty: 30 0RF Continued pantoprazole 40 mg tablet,delayed release (DR/EC) 40 mg PO DAILY Qty: 30 3RF carbamazepine 100 mg tablet extended release 12 hr 100 mg PO DAILY Qty: 30 3RF duloxetine 20 mg capsule,delayed release(DR/EC) 20 mg PO QDAY Qty: 30 3RF acyclovir 400 mg tablet 400 mg PO BID Qty: 60 3RF pregabalin 50 mg capsule 50 mg PO DAILY Qty: 30 3RF Brukinsa 80 mg capsule 160 mg PO BID Qty: 120 0RF pravastatin 20 mg tablet 20 mg PO DAILY Qty: 30 3RF acetaminophen 500 mg Tablet 500 mg PO Q6H PRN (Reason: Pain) Healthy Eyes 300 mcg-200 mg-27 mg-2 mg Tablet 1 tab PO DAILY Rx Instructions: administer after a meal Changed losartan 25 mg tablet 50 mg PO DAILY Qty: 30 0RF Discharge Order = DC NOW: Discharge Order (Routine); Ordered 03/18/25 Ordered By: Abby Crouch Referrals: [facility]) [Outside] Isidra Carrero MD [Physician, Family Practice] - 03/24/25 10:30 am Referral Note: establish care. New patient with CLL, new diagnosis of adrenal insufficiency This appointment is scheduled with Gisele Vega for your hospitail follow-up. During this appointment the clinic will set up an appointment to establish primary care. Thank you! Harrison Agee MD [Physician, Endocrinology] - 03/19/25 10:00 am Referral Note: new diagnosis of adrenal insufficiency Discharge Diet: Usual diet Discharge Activity: Increase activity as tolerated Patient Instructions: Fludrocortisone Acetate (By mouth), Hydralazine (By mouth), Hydrocortisone (By mouth), Syncope (DC), Hypertension (DC), Chronic Lymphocytic Leukemia (DC), Syncope in Older Adults (DC), Opioid Safety, Patient Portal & Mary Instructions Patient's Health Concerns: Discharge Attestations Time Spent in Discharge Care*: greater than 30 min Quality Metrics Clinical Quality Measures [ No reported AMI, CVA or VTE this stay] Coding Level of Care Code Acute Code for Chg Fwd Diagnoses Orthostatic hypotension I95.1 Adrenal insufficiency E27.40 Syncope and collapse R55 CLL (chronic lymphocytic leukemia) C91.10 Accelerated essential hypertension I10 Cerebral atrophy G31.9 Small vessel disease, cerebrovascular I67.9
== END 2025-03-18 10:51 | disposition home health service (06) ==
LOC: ER 17:09 → CSU 17:49
PROVIDERS: Admitting Provider Internal Medicine; Emergency Provider Family Medicine; PCP Nurse Practitioner Family; Visit Provider Student in an Organized Health Care Education/Training Program
DX: I95.1 Orthostatic hypotension (principal); C91.10 Chronic lymphocytic leukemia of B-cell type not having achieved remission; E27.40 Unspecified adrenocortical insufficiency; I10 Essential (primary) hypertension; G31.9 Degenerative disease of nervous system, unspecified; I67.9 Cerebrovascular disease, unspecified; K21.9 Gastro-esophageal reflux disease without esophagitis
CPT/HCPCS: 36415; 71045; 74177; 80048; 80053; 81001; 81003; 82533; 83735; 84484; 85007; 85025; 93005; 93306; 93880; 96372; 96374; 96375; 96376; 97161; 97165; 99285; G0378; J0360; J0834; J1644; J1650; J1885; J2270; J7030; J7040; J8499; J9999

== ENCOUNTER → 2025-03-19 10:08 | Outpatient (BNVA) | payer MEDICARE, SELFPAY | PROVIDERS: Visit Provider Internal Medicine | DX: E27.40 Unspecified adrenocortical insufficiency (principal); I10 Essential (primary) hypertension; I95.1 Orthostatic hypotension | CPT/HCPCS: 99204 ==

== ENCOUNTER 2025-03-22 13:42 | Emergency (ER) | payer MEDICARE, SELFPAY ==
[2025-03-22 13:54] VITALS: BP 190/107; PULSE 76; RESP 18; TEMP 36.7; O2SAT 99
[2025-03-22 13:56] VITALS: BP 182/92
--- NOTE | 2025-03-22 14:02 | XRR_ITS ---
PROCEDURE INFORMATION: Exam: XR Chest Exam date and time: 03/22/2025 2:21 PM Age: 84 years old Clinical indication: Other: HTN TECHNIQUE: Imaging protocol: Radiologic exam of the chest. Views: 1 view. COMPARISON: CR XR chest 1V portable [id number] 03/13/2025 10:50 AM FINDINGS: Lungs: Unremarkable. No consolidation. Pleural spaces: Unremarkable. No pleural effusion. No pneumothorax. Heart/Mediastinum: Unremarkable. No cardiomegaly. Bones/joints: Severe degenerative changes again noted in the glenohumeral joints. XR/XR chest 1V portable [id number] IMPRESSION: No acute findings.
--- NOTE | 2025-03-22 14:03 | W.ED.GENADLT ---
HPI - General Adult General: Chief complaint: General Medical Stated complaint: high bp Time Seen by Provider: 03/22/25 13:47 Source: patient Mode of arrival: ambulatory Limitations: no limitations History of Present Illness: 84-year-old female has a history of hypertension she has been seen here multiple times for hypertension in the past. She states that she had recently been admitted no change from her meds states for the last 2 days she has been having high blood pressures today her blood pressures in the 190s she states she has had a mild headache but denies having a severe headache she denies any chest pain denies any weakness denies any vomiting or diarrhea. Associated symptoms: Reports headache(s); Deny chest pain, dyspnea, nausea, rash or vomiting Related Data Home Medications ?Medication ?Instructions ?Recorded ?Confirmed acetaminophen 500 mg tablet 500 mg PO Q6H PRN Pain 03/13/25 03/22/25 vit A 300 mcg-C 200 mg-E 27 1 tab PO DAILY 03/15/25 03/22/25 mg-lutein 2 mg and minerals tablet (Healthy Eyes) hydrocortisone 10 mg tablet 10 mg PO QAM 03/22/25 03/22/25 hydrocortisone 5 mg tablet 5 mg PO .3PM 03/22/25 03/22/25 Previous Rx's ?Medication ?Instructions ?Recorded acyclovir 400 mg tablet 400 mg PO BID #60 tabs 10/01/24 carbamazepine 100 mg 100 mg PO DAILY #30 tabs 10/01/24 tablet,extended release,12 hr duloxetine 20 mg capsule,delayed 20 mg PO QDAY #30 caps 10/01/24 release pantoprazole 40 mg tablet,delayed 40 mg PO DAILY #30 tabs 10/01/24 release pregabalin 50 mg capsule 50 mg PO DAILY #30 caps 02/12/25 pravastatin 20 mg tablet 20 mg PO DAILY #30 tabs 03/04/25 fludrocortisone 0.1 mg tablet 0.1 mg PO DAILY 30 days #30 tabs 03/18/25 hydralazine 25 mg tablet 25 mg PO Q8H PRN SBP > 180 or DBP 03/18/25 >110 30 days #90 tabs losartan 25 mg tablet 50 mg (2 x 25 mg) PO DAILY #30 tabs 03/18/25 zanubrutinib 80 mg capsule 160 mg (2 x 80 mg) PO BID #120 caps 03/20/25 (Brukinsa) Allergies Allergy/AdvReac Type Severity Reaction Status Date / Time niacin Allergy Severe ALGY-Difficulty Verified 03/15/25 12:21 Breathing Review of Systems Const: Denies: fever(s), chills, body aches or change in appetite Eyes: Denies: blurry vision or eye discomfort ENMT: Denies: throat pain or dental pain Card: Denies: chest pain Resp: Denies: dyspnea GI: Denies: abdominal pain, nausea, vomiting or diarrhea Musc: Denies: neck pain or back pain Skin/Breast: Denies: rash Neuro: Reports: headache(s) PFSH ED PFSH: Medical History Accelerated essential hypertension Syncope and collapse Surgical History H/O arthroscopy of left knee Family History Denies family history of Diabetes Cancer Hypertension Stroke Social History Smoking and tobacco/nicotine status: never used tobacco/nicotine Alcohol intake: never Substance/Drug Use: never Additional social history: Patient is seen in the emergency department room 4. Her son Patrick is on speaker phone. Patient wants full code as discussed today 03/13/2025 with Mike Naylor MD Physical Exam Const: COMMON NORMALS: no acute distress, patient oriented x3 and healthy appearing HENMT: COMMON NORMALS: normocephalic and atraumatic HEAD & SCALP: normocephalic and atraumatic Eye: COMMON NORMALS: conjunctivae normal CONJUNCTIVA: Yes conjunctivae normal Neck/C-Spine: COMMON NORMALS: full ROM and supple Chest: COMMONS NORMALS: normal inspection of the chest Resp: COMMON NORMALS: normal respiratory effort, No retractions, No use of accessory muscles and clear to auscultation bilaterally AUSCULTATION: clear to auscultation bilaterally Cardio: COMMON NORMALS: regular rate, regular rhythm and No murmurs present (Cardio) RATE: regular rate RHYTHM: regular rhythm Extremity: COMMON NORMALS: normal to inspection and full ROM Neuro: COMMON NORMALS: patient oriented x3, moves all extremities and no focal motor deficits Psych: COMMON NORMALS: mental status grossly normal, Normal thought process present and cooperative THOUGHT PROCESS: Normal thought process present Skin: COMMON NORMALS: no rashes or lesions noted and no wounds GENERAL SKIN EXAM: no rashes or lesions noted Course Vital Signs: Vital signs: Vital Signs Temperature 98.1 F 03/22/25 13:54 Pulse Rate 70 03/22/25 15:29 Respiratory Rate 13 03/22/25 15:29 Blood Pressure 139/74 03/22/25 15:29 Pulse Oximetry 96 03/22/25 15:29 Oxygen Delivery Me thod Room Air 03/22/25 13:54 MDM - General Adult Medical Decision Making Patient presents here with hypertension she had a mild headache since resolved no signs of stroke blood work here is normal she is to take logs of her blood pressure follow-up with her PCP return if worsening she understands agrees to plan. Medical Records I reviewed the patient's medical records. Lab Data I reviewed the patient's lab results. 03/22/25 14:20 03/22/25 14:20 Laboratory Results WBC 5.45 10^3/uL (3.29-11.43) 03/22/25 14:20 RBC 3.51 10^6/uL (3.85-5.65) L 03/22/25 14:20 Hgb 11.10 g/dL (11.27-16.99) L 03/22/25 14:20 Hct 33.3 % (36-47) L 03/22/25 14:20 MCV 94.9 fl (85-98) 03/22/25 14:20 MCH 31.6 pg (27-33) 03/22/25 14:20 MCHC 33.3 g/dL (30-55) 03/22/25 14:20 RDW 14.2 % (12.1-15.1) 03/22/25 14:20 Plt Count 151 10^3/cmm (157-399) L 03/22/25 14:20 MPV 11.3 fL (7.4-10.4) H 03/22/25 14:20 Neut % (Auto) 64.6 % 03/22/25 14:20 Lymph % (Auto) 22.4 % 03/22/25 14:20 [place] % (Auto) 9.4 % 03/22/25 14:20 Eos % (Auto) 1.7 % 03/22/25 14:20 Baso % (Auto) 1.5 % 03/22/25 14:20 Neut # (Auto) 3.53 10^3/uL (1.8-7.7) 03/22/25 14:20 Lymph # (Auto) 1.2 10^3/uL (0.8-4.8) 03/22/25 14:20 [place] # (Auto) 0.5 10^3/uL (0.2-0.9) 03/22/25 14:20 Eos # (Auto) 0.1 10^3/uL (0.0-0.8) 03/22/25 14:20 Baso # (Auto) 0.1 10^3/uL (0.0-0.1) 03/22/25 14:20 Nucleated RBC % (auto) 0 % 03/22/25 14:20 Nucleated RBCs # 0.0 /100WBC 03/22/25 14:20 Sodium 138 mmol/L (136-145) 03/22/25 14:20 Potassium 4.0 mmol/L (3.5-5.1) 03/22/25 14:20 Chloride 101 mmol/L (98-107) 03/22/25 14:20 Carbon Dioxide 26 mmol/L (22-29) 03/22/25 14:20 Anion Gap 15.0 (5-19) 03/22/25 14:20 BUN 17 mg/dL (8-23) 03/22/25 14:20 Creatinine 0.8 mg/dL (0.5-0.9) 03/22/25 14:20 GFR Calculation Not Reportable 03/22/25 14:20 Glucose 105 mg/dL (65-115) 03/22/25 14:20 Calculated Osmolality 288 mOsm/kg (285-295) 03/22/25 14:20 Calcium 9.0 mg/dL (8.5-10.5) 03/22/25 14:20 Total Bilirubin 0.2 mg/dL (0.15-1.2) 03/22/25 14:20 AST 25 U/L (0-32) 03/22/25 14:20 ALT 24 U/L (0-33) 03/22/25 14:20 Alkaline Phosphatase 79 U/L (35-105) 03/22/25 14:20 Total Protein 6.1 g/dL (6.6-8.7) L 03/22/25 14:20 Albumin 3.9 g/dL (3.5-5.2) 03/22/25 14:20 Globulin 2.2 g/dL (1.3-4.6) 03/22/25 14:20 All radiology interpretation(s) finalized by discharge EKG Data EKG 1: I personally reviewed and interpreted this EKG as follows: EKG interpretation date: 03/22/25 EKG interpretation time: 14:08 Interpretation: nsr hr [address] elevation qrs 87 qtc 418 Discharge Plan Discharge Patient Disposition: Home Clinical Impression: Hypertension Condition: Stable Prescriptions: No Action pantoprazole 40 mg tablet,delayed release (DR/EC) 40 mg PO DAILY Qty: 30 3RF carbamazepine 100 mg tablet extended release 12 hr 100 mg PO DAILY Qty: 30 3RF duloxetine 20 mg capsule,delayed release(DR/EC) 20 mg PO QDAY Qty: 30 3RF acyclovir 400 mg tablet 400 mg PO BID Qty: 60 3RF pregabalin 50 mg capsule 50 mg PO DAILY Qty: 30 3RF pravastatin 20 mg tablet 20 mg PO DAILY Qty: 30 3RF Brukinsa 80 mg capsule 160 mg PO BID Qty: 120 0RF acetaminophen 500 mg Tablet 500 mg PO Q6H PRN (Reason: Pain) Healthy Eyes 300 mcg-200 mg-27 mg-2 mg Tablet 1 tab PO DAILY Rx Instructions: administer after a meal hydralazine 25 mg Tablet 25 mg PO Q8H PRN (Reason: SBP > 180 or DBP >110) 30 Days Qty: 90 0RF fludrocortisone 0.1 mg Tablet 0.1 mg PO DAILY 30 Days Qty: 30 0RF losartan 25 mg tablet 50 mg PO DAILY Qty: 30 0RF hydrocortisone 5 mg tablet 5 mg PO .3PM hydrocortisone 10 mg tablet 10 mg PO QAM Discharge Orders: Discharge ED (Routine); Ordered 03/22/25 Ordered By: Tristan Melchor Referrals: Isidra Carrero MD [Primary Care Provider, Family Practice] - 4-7 days Discharge Diet: Advance as tolerated Discharge Activity: Resume usual activity Patient Instructions: Hypertension (ED) Print Language: Citizen Of [place] Coding Level of Care Code ED Splitting Machine Operator Helper for June Rosas
--- NOTE | 2025-03-22 14:08 | ECG_ITS ---
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 Measurements Intervals [place] Rate: 74 P: 69 [place]: 126 QRS: 68 QRSD: 87 T: 42 QT: 391 QTc: 434 Interpretive Statements SINUS RHYTHM Compared to ECG 03/15/2025 12:39:05 T-wave abnormality no longer present Electronically Signed On 03-22-2025 20:07:35 CDT by Pretty Rowe M.D. [email or web address]
[2025-03-22] MEDS: hyDRALAzine 20 mg/mL INJ 1 mL 10 MG IVP (14:25)
[2025-03-22 14:28] LABS: Hematocrit 33.3 % (36-47); Hemoglobin 11.10 g/dL (11.27-16.99); Mean Corpuscular HGB Conc 33.3 g/dL (30-55); Mean Corpuscular Hemoglobin 31.6 pg (27-33); Mean Corpuscular Volume 94.9 fl (85-98); Nucleated Red Blood Cells % 0 %; Platelet Count 151 10^3/cmm (157-399); Red Blood Count 3.51 10^6/uL (3.85-5.65); White Blood Count 5.45 10^3/uL (3.29-11.43)
[2025-03-22 14:39] VITALS: BP 177/91; PULSE 75; RESP 18; O2SAT 99
[2025-03-22 14:43] LABS: Alanine Aminotransferase 24 U/L (0-33); Albumin Level 3.9 g/dL (3.5-5.2); Alkaline Phosphatase 79 U/L (35-105); Anion Gap 15.0 (5-19); Aspartate Amino Transferase 25 U/L (0-32); Blood Urea Nitrogen 17 mg/dL (8-23); Calcium 9.0 mg/dL (8.5-10.5); Carbon Dioxide 26 mmol/L (22-29); Chloride 101 mmol/L (98-107); Globulin 2.2 g/dL (1.3-4.6); Glucose 105 mg/dL (65-115); Osmolality Calculated 288 mOsm/kg (285-295); Potassium 4.0 mmol/L (3.5-5.1); Sodium 138 mmol/L (136-145); Total Protein 6.1 g/dL (6.6-8.7)
[2025-03-22 14:59] LABS: Slide Review Slide Review Perform
[2025-03-22] MEDS: labetalol 5 mg/mL SDV 20mL 10 MG IVP (15:13)
[2025-03-22 15:29] VITALS: BP 139/74; PULSE 70; RESP 13; O2SAT 96
== END 2025-03-22 15:40 | disposition home or self-care (01) ==
PROVIDERS: Emergency Provider Emergency Medicine; PCP Family Medicine
DX: I10 Essential (primary) hypertension (principal)
CPT/HCPCS: 36415; 71045; 80053; 85025; 93005; 96374; 96375; 99285; J0360; J3490

== ENCOUNTER 2025-03-30 07:36 | Emergency (ER) | payer MEDICARE, SELFPAY ==
[2025-03-30] VITALS (10 sets, daily range): BP systolic 125–226; BP diastolic 56–95; PULSE 68–80; RESP 15; TEMP 36.6; O2SAT 91–97; BMI 26.2
--- NOTE | 2025-03-30 07:39 | ECG_ITS ---
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 Measurements Intervals [place] Rate: 79 P: 67 [place]: 129 QRS: 48 QRSD: 94 T: 24 QT: 384 QTc: 440 Interpretive Statements SINUS RHYTHM POSSIBLE LEFT ATRIAL ENLARGEMENT [-0.1mV P-WAVE IN V1/V2] MINIMAL ST DEPRESSION [0.025+ mV ST DEPRESSION] Compared to ECG 03/22/2025 14:08:17 ST (T wave) deviation now present Electronically Signed On 03-30-2025 14:38:53 CDT by Asa Romero M.D. [email or web address]
--- NOTE | 2025-03-30 07:46 | W.ED.GENADLT ---
HPI - General Adult General: Chief complaint: General Medical Stated complaint: hypertension Time Seen by Provider: 03/30/25 07:39 History of Present Illness: 84-year-old female who presents to the emergency room by ambulance with concerns for hypertension. Today says she had a headache and she can tell when her blood pressure is up because of this. Blood pressures were as high as 200. Mentation here her initial blood pressure is 226/94. No focal motor deficits. No altered mental status. No chest pain. No nausea or vomiting. No abdominal pain. No dysuria. She says she took an extra hydralazine this did not help. Related Data Home Medications ?Medication ?Instructions ?Recorded ?Confirmed acetaminophen 500 mg tablet 500 mg PO Q6H PRN Pain 03/13/25 03/30/25 vit A 300 mcg-C 200 mg-E 27 1 tab PO DAILY 03/15/25 03/30/25 mg-lutein 2 mg and minerals tablet (Healthy Eyes) hydrocortisone 10 mg tablet 10 mg PO QAM 03/22/25 03/30/25 hydrocortisone 5 mg tablet 5 mg PO .3PM 03/22/25 03/30/25 Previous Rx's ?Medication ?Instructions ?Recorded acyclovir 400 mg tablet 400 mg PO BID #60 tabs 10/01/24 carbamazepine 100 mg 100 mg PO DAILY #30 tabs 10/01/24 tablet,extended release,12 hr duloxetine 20 mg capsule,delayed 20 mg PO QDAY #30 caps 10/01/24 release pantoprazole 40 mg tablet,delayed 40 mg PO DAILY #30 tabs 10/01/24 release pregabalin 50 mg capsule 50 mg PO DAILY #30 caps 02/12/25 pravastatin 20 mg tablet 20 mg PO DAILY #30 tabs 03/04/25 fludrocortisone 0.1 mg tablet 0.1 mg PO DAILY 30 days #30 tabs 03/18/25 hydralazine 25 mg tablet 25 mg PO Q8H PRN SBP > 180 or DBP 03/18/25 >110 30 days #90 tabs losartan 25 mg tablet 50 mg (2 x 25 mg) PO DAILY #30 tabs 03/18/25 zanubrutinib 80 mg capsule 160 mg (2 x 80 mg) PO BID #120 caps 03/20/25 (Brukinsa) cefdinir 300 mg capsule 300 mg PO BID 5 days #10 caps 03/30/25 clonidine HCl 0.1 mg tablet 0.1 mg PO DAILY PRN hypertension 03/30/25 #20 tabs Allergies Allergy/AdvReac Type Severity Reaction Status Date / Time niacin Allergy Severe ALGY-Difficulty Verified 03/24/25 10:47 Breathing Review of Systems Narrative: Constitutional symptoms: Negative except as documented in HPI. Skin symptoms: Negative except as documented in HPI. Eye symptoms: Negative except as documented in HPI. ENMT symptoms: Negative except as documented in HPI. Respiratory symptoms: Negative except as documented in HPI. Cardiovascular symptoms: Negative except as documented in HPI. Gastrointestinal symptoms: Negative except as documented in HPI. Genitourinary symptoms: Negative except as documented in HPI. Musculoskeletal symptoms: Negative except as documented in HPI. Neurologic symptoms: Negative except as documented in HPI. Psychiatric symptoms: Negative except as documented in HPI. Endocrine symptoms: Negative except as documented in HPI. [facility] ED PFSH: Medical History (Updated 03/30/25 @ 10:03 by Padmini Hodge MD) Accelerated essential hypertension Syncope and collapse Surgical History H/O arthroscopy of left knee Family History Denies family history of Diabetes Cancer Hypertension Stroke Social History Smoking and tobacco/nicotine status: never used tobacco/nicotine Alcohol intake: never Substance/Drug Use: never Additional social history: Patient is seen in the emergency department room 4. Her son Patrick is on speaker phone. Patient wants full code as discussed today 03/13/2025 with Mike Naylor MD Physical Exam Narrative: EXAM NARRATIVE: General: Alert, no acute distress. Skin: Warm, dry. Head: Normocephalic, atraumatic. Neck: Supple, trachea midline. Eye: Extraocular movements are intact. Ears, nose, mouth and throat: mucosa moist. Cardiovascular: Regular, Normal peripheral perfusion. Respiratory: Lungs are clear to auscultation, respirations are non-labored, breath sounds are equal, Symmetrical chest wall expansion. Gastrointestinal: Soft, Nontender, Non distended Musculoskeletal: Normal ROM, no deformity. Neurological: Alert and oriented, No focal neurological deficit observed. Psychiatric: Cooperative, appropriate mood & affect. Course Vital Signs: Vital signs: Vital Signs Temperature 97.9 F 03/30/25 07:37 Pulse Rate 70 03/30/25 10:10 Respiratory Rate 15 03/30/25 07:37 Blood Pressure 125/65 03/30/25 10:10 Pulse Oximetry 95 03/30/25 10:10 Oxygen Delivery Me thod Room Air 03/30/25 07:37 MDM - General Adult Medical Decision Making Medical decision making: Differential diagnosis including but not limited to and based on the above HPI, review of systems and physical exam: Patient presents with hypertension: Essential hypertension. Stroke. acute coronary syndrome. kidney failure. congestive heart failure. anxiety. Orders placed to evaluate differential diagnosis based on the above differential, HPI and physical exam EKG: Time 7:38 AM. Rate 79. Normal sinus rhythm, No ST-T changes, no ectopy, normal VA & QRS intervals, This was reviewed and interpreted by myself the ER physician at 7:42 AM Repeat EKG: Time 943. Rate 67. Normal sinus rhythm, No ST-T changes, no ectopy, normal VA & QRS intervals, This was reviewed and interpreted by myself the ER physician at 9:47 AM. No significant changes from EKG done previously today. Lab Review: Laboratory results were reviewed and interpreted by myself the emergency room physician. No leukocytosis. No anemia. No renal failure. Patient does appear to have a mild urinary tract infection. Serial cardiac markers are unchanged. At her baseline. I reviewed the patient's medical record. Reexamination: Patient remained stable. No increased work of breathing. No altered mental status. No focal motor deficits. Blood pressure much improved after clonidine. Assessment and plan: Urinary tract infection Hypertension ? IV Rocephin. P.o. clonidine. - Discharged home - Discussed plan with patient. Answered any questions. - Evaluation and treatment of this problem were appropriate in the emergency setting. Lab Data 03/30/25 07:40 03/30/25 07:40 Laboratory Results WBC 5.78 10^3/uL (3.29-11.43) 03/30/25 07:40 RBC 3.80 10^6/uL (3.85-5.65) L 03/30/25 07:40 Hgb 11.70 g/dL (11.27-16.99) 03/30/25 07:40 Hct 35.2 % (36-47) L 03/30/25 07:40 MCV 92.6 fl (85-98) 03/30/25 07:40 MCH 30.8 pg (27-33) 03/30/25 07:40 MCHC 33.2 g/dL (30-55) 03/30/25 07:40 RDW 14.6 % (12.1-15.1) 03/30/25 07:40 Plt Count 185 10^3/cmm (157-399) 03/30/25 07:40 MPV 12.5 fL (7.4-10.4) H 03/30/25 07:40 Neut % (Auto) 47.4 % 03/30/25 07:40 Lymph % (Auto) 33.7 % 03/30/25 07:40 [place] % (Auto) 13.3 % 03/30/25 07:40 Eos % (Auto) 4.0 % 03/30/25 07:40 Baso % (Auto) 1.4 % 03/30/25 07:40 Neut # (Auto) 2.74 10^3/uL (1.8-7.7) 03/30/25 07:40 Lymph # (Auto) 2.0 10^3/uL (0.8-4.8) 03/30/25 07:40 [place] # (Auto) 0.8 10^3/uL (0.2-0.9) 03/30/25 07:40 Eos # (Auto) 0.2 10^3/uL (0.0-0.8) 03/30/25 07:40 Baso # (Auto) 0.1 10^3/uL (0.0-0.1) 03/30/25 07:40 Nucleated RBC % (auto) 0 % 03/30/25 07:40 Nucleated RBCs # 0.0 /100WBC 03/30/25 07:40 Sodium 141 mmol/L (136-145) 03/30/25 07:40 Potassium 3.9 mmol/L (3.5-5.1) 03/30/25 07:40 Chloride 101 mmol/L (98-107) 03/30/25 07:40 Carbon Dioxide 27 mmol/L (22-29) 03/30/25 07:40 Anion Gap 16.9 (5-19) 03/30/25 07:40 BUN 24 mg/dL (8-23) H 03/30/25 07:40 Creatinine 0.7 mg/dL (0.5-0.9) 03/30/25 07:40 GFR Calculation Not Reportable 03/30/25 07:40 Glucose 97 mg/dL (65-115) 03/30/25 07:40 Calculated Osmolality 296 mOsm/kg (285-295) H 03/30/25 07:40 Calcium 9.5 mg/dL (8.5-10.5) 03/30/25 07:40 Total Bilirubin 0.3 mg/dL (0.15-1.2) 03/30/25 07:40 AST 23 U/L (0-32) 03/30/25 07:40 ALT 13 U/L (0-33) 03/30/25 07:40 Alkaline Phosphatase 84 U/L (35-105) 03/30/25 07:40 Troponin T Baseline 17 ng/L (0-10) H 03/30/25 07:40 Troponin T 120 Minute 15.36 ng/L (0-10) H 03/30/25 09:31 Delta Troponin T -1.64 ABS# (0-10) L 03/30/25 09:31 NT-Pro-B Natriuret Pep 403 pg/mL (0-450) 03/30/25 07:40 Total Protein 6.4 g/dL (6.6-8.7) L 03/30/25 07:40 Albumin 4.2 g/dL (3.5-5.2) 03/30/25 07:40 Globulin 2.2 g/dL (1.3-4.6) 03/30/25 07:40 Urine Color Yellow (Yellow) 03/30/25 08:06 Urine Appearance Cloudy (CLEAR) A 03/30/25 08:06 Urine pH TNP 03/30/25 08:06 Ur Specific [place] Not Reportable 03/30/25 08:06 Urine Protein Not Reportable 03/30/25 08:06 Urine Glucose (UA) Not Reportable 03/30/25 08:06 Urine Ketones Not Reportable 03/30/25 08:06 Urine Blood Not Reportable 03/30/25 08:06 Urine Nitrate Not Reportable 03/30/25 08:06 Urine Bilirubin Not Reportable 03/30/25 08:06 Urine Urobilinogen Not Reportable 03/30/25 08:06 Ur Leukocyte Esterase Not Reportable 03/30/25 08:06 Urine RBC 3-5 /hpf (0-2) 03/30/25 08:06 Urine WBC 15-25 /hpf (0-5) H 03/30/25 08:06 Ur Squamous Epith Cells 5-10 /hpf (0-5) H 03/30/25 08:06 Amorphous Sediment Trace /hpf 03/30/25 08:06 Urine Bacteria 1+ /hpf (NONE) H 03/30/25 08:06 Urine Mucus Trace /hpf 03/30/25 08:06 XR interpretation done by ED provider, pending radiology final review Discharge Plan Discharge Patient Disposition: Home Clinical Impression: Hypertension, Urinary tract infection Condition: Stable Prescriptions: New clonidine HCl 0.1 mg tablet 0.1 mg PO DAILY PRN (Reason: hypertension) Qty: 20 0RF Rx Instructions: For Systolic >185 diastolic >100. If you are needing this more than once a day you need to follow with your primary care provider cefdinir 300 mg capsule 300 mg PO BID 5 Days Qty: 10 0RF No Action pantoprazole 40 mg tablet,delayed release (DR/EC) 40 mg PO DAILY Qty: 30 3RF carbamazepine 100 mg tablet extended release 12 hr 100 mg PO DAILY Qty: 30 3RF duloxetine 20 mg capsule,delayed release(DR/EC) 20 mg PO QDAY Qty: 30 3RF acyclovir 400 mg tablet 400 mg PO BID Qty: 60 3RF pregabalin 50 mg capsule 50 mg PO DAILY Qty: 30 3RF pravastatin 20 mg tablet 20 mg PO DAILY Qty: 30 3RF Brukinsa 80 mg capsule 160 mg PO BID Qty: 120 0RF acetaminophen 500 mg Tablet 500 mg PO Q6H PRN (Reason: Pain) Healthy Eyes 300 mcg-200 mg-27 mg-2 mg Tablet 1 tab PO DAILY Rx Instructions: administer after a meal hydralazine 25 mg Tablet 25 mg PO Q8H PRN (Reason: SBP > 180 or DBP >110) 30 Days Qty: 90 0RF fludrocortisone 0.1 mg Tablet 0.1 mg PO DAILY 30 Days Qty: 30 0RF losartan 25 mg tablet 50 mg PO DAILY Qty: 30 0RF hydrocortisone 5 mg tablet 5 mg PO .3PM hydrocortisone 10 mg tablet 10 mg PO QAM Discharge Orders: Discharge ED (Routine); Ordered 03/30/25 Ordered By: Padmini Hodge Referrals: Gisele Vega NP [Primary Care Provider, Family Practice] Discharge Diet: As Directed Discharge Activity: Increase activity as tolerated Patient Instructions: Hypertension (ED), Opioid Safety, Pain Management, Patient Portal & Mary Instructions Activity Restrictions/Additional Instructions: Thank you for choosing [facility] for your healthcare needs today. You have been screened and evaluated and felt safe for discharge. Health conditions do change or evolve sometimes and as such it is important that you follow up with your Primary Doctor to be re checked, 3-5 days is a general good time frame for follow up. You are always welcome to return to the ED for re assessment if your symptoms are worsening or you have new concerns Print Language: German Coding Level of Care Code ED Hooker Laster for June Rosas
[2025-03-30 07:57] LABS: Hematocrit 35.2 % (36-47); Hemoglobin 11.70 g/dL (11.27-16.99); Mean Corpuscular HGB Conc 33.2 g/dL (30-55); Mean Corpuscular Hemoglobin 30.8 pg (27-33); Mean Corpuscular Volume 92.6 fl (85-98); Nucleated Red Blood Cells % 0 %; Platelet Count 185 10^3/cmm (157-399); Red Blood Count 3.80 10^6/uL (3.85-5.65); White Blood Count 5.78 10^3/uL (3.29-11.43)
[2025-03-30 08:14] LABS: Troponin(5th) Baseline 17 ng/L (0-10)
[2025-03-30 08:22] LABS: Alanine Aminotransferase 13 U/L (0-33); Albumin Level 4.2 g/dL (3.5-5.2); Alkaline Phosphatase 84 U/L (35-105); Blood Urea Nitrogen 24 mg/dL (8-23); Calcium 9.5 mg/dL (8.5-10.5); Carbon Dioxide 27 mmol/L (22-29); Chloride 101 mmol/L (98-107); Creatinine Clr Calc Pharmacy 50.4700; Globulin 2.2 g/dL (1.3-4.6); Glucose 97 mg/dL (65-115); NT Pro B Type Natriuretic Pept 403 pg/mL (0-450); Osmolality Calculated 296 mOsm/kg (285-295); Sodium 141 mmol/L (136-145); Total Protein 6.4 g/dL (6.6-8.7)
[2025-03-30 08:23] LABS: Anion Gap 16.9 (5-19); Aspartate Amino Transferase 23 U/L (0-32); Potassium 3.9 mmol/L (3.5-5.1)
[2025-03-30 08:28] LABS: UA Manual Slide Review YES
--- NOTE | 2025-03-30 09:39 | ECG_ITS ---
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 Measurements Intervals [place] Rate: 67 P: 67 [place]: 133 QRS: 43 QRSD: 87 T: 24 QT: 426 QTc: 451 Interpretive Statements SINUS RHYTHM NONSPECIFIC ST- T-WAVE ABNORMALITY Compared to ECG 03/30/2025 07:38:32 NO SIGNIFICANT CHANGE Electronically Signed On 03-30-2025 14:48:45 CDT by Asa Romero M.D. [email or web address]
[2025-03-30] MEDS: cefTRIAXone 1,000 mg SDV 1000 MG IVP (09:41)
[2025-03-30 09:58] LABS: Troponin 5 2HR 15.36 ng/L (0-10)
[2025-03-30 09:59] LABS: Troponin 5 2HR Delta -1.64 ABS# (0-10)
== END 2025-03-30 10:50 | disposition home or self-care (01) ==
PROVIDERS: Emergency Provider Emergency Medicine
DX: I10 Essential (primary) hypertension (principal); N39.0 Urinary tract infection, site not specified
CPT/HCPCS: 80053; 81001; 83880; 84484; 85025; 87086; 93005; 96374; 99284; J0696; J9999

== ENCOUNTER 2025-04-01 12:30 | Oncology outpatient (recurring) (ONCR) | payer MEDICARE, SELFPAY ==
--- NOTE | 2025-03-04 15:15 | MR_ITS ---
WS: [id number] MRI HEAD WITH CONTRAST TECHNIQUE: Sagittal T1, T2 axial, T2 axial FLAIR, axial susceptibility weighted imaging, axial diffusion weighted images, and coronal T2 images were obtained. Pre and post-T1 axial and post T1 coronal images. ADC and FSPGR images. CLINICAL INFORMATION: CLL COMPARISON: MRI 12/10/2024 FINDINGS: No restricted diffusion to suggest acute ischemia. Moderate small vessel changes with moderate parenchymal volume loss. Normal posterior fossa. Normal vascular flow voids at the skull base. No extra-axial fluid collections. Paranasal sinuses are well aerated. Mild mucosal thickening in the mastoid air cells. No hemosiderin on the susceptibly weighted images. Normal optic chiasm and pituitary infundibulum. No abnormal gadolinium enhancement. Normal dural venous sinuses. No other suspicious findings. MR/MR head wo/w con [id number] IMPRESSION: 1. No evidence of restricted diffusion. 2. Moderate small vessel changes. Moderate parenchymal volume loss. 3. No abnormal gadolinium enhancement. 4. No hemosiderin on susceptibility-weighted images. 5. No significant changes compared to previous.
[2025-03-04] MEDS: gadobenate dimeglumine 20 mL vial IV (15:47)
[2025-03-11 14:15] LABS: Hematocrit 33.2 % (36-47); Hemoglobin 11.20 g/dL (11.27-16.99); Mean Corpuscular HGB Conc 33.7 g/dL (30-55); Mean Corpuscular Hemoglobin 31.8 pg (27-33); Mean Corpuscular Volume 94.3 fl (85-98); Nucleated Red Blood Cells % 0 %; Platelet Count 174 10^3/cmm (157-399); Red Blood Count 3.52 10^6/uL (3.85-5.65); White Blood Count 3.59 10^3/uL (3.29-11.43)
[2025-03-11 14:34] LABS: Alanine Aminotransferase 9 U/L (0-33); Albumin Level 4.2 g/dL (3.5-5.2); Alkaline Phosphatase 77 U/L (35-105); Anion Gap 11.6 (5-19); Aspartate Amino Transferase 18 U/L (0-32); Blood Urea Nitrogen 19 mg/dL (8-23); Calcium 9.1 mg/dL (8.5-10.5); Carbon Dioxide 28 mmol/L (22-29); Chloride 107 mmol/L (98-107); Globulin 2.4 g/dL (1.3-4.6); Glucose 98 mg/dL (65-115); Osmolality Calculated 298 mOsm/kg (285-295); Potassium 3.6 mmol/L (3.5-5.1); Sodium 143 mmol/L (136-145); Total Protein 6.6 g/dL (6.6-8.7)
[2025-04-01 13:02] LABS: Hematocrit 32.1 % (36-47); Hemoglobin 10.90 g/dL (11.27-16.99); Mean Corpuscular HGB Conc 34.0 g/dL (30-55); Mean Corpuscular Hemoglobin 32.1 pg (27-33); Mean Corpuscular Volume 94.4 fl (85-98); Nucleated Red Blood Cells % 0 %; Platelet Count 172 10^3/cmm (157-399); Red Blood Count 3.40 10^6/uL (3.85-5.65); White Blood Count 7.87 10^3/uL (3.29-11.43)
[2025-04-01 13:08] LABS: Alanine Aminotransferase 14 U/L (0-33); Albumin Level 4.1 g/dL (3.5-5.2); Alkaline Phosphatase 71 U/L (35-105); Anion Gap 14.7 (5-19); Aspartate Amino Transferase 19 U/L (0-32); Blood Urea Nitrogen 22 mg/dL (8-23); Calcium 9.2 mg/dL (8.5-10.5); Carbon Dioxide 26 mmol/L (22-29); Chloride 104 mmol/L (98-107); Creatinine Clr Calc Pharmacy 46.2423; Ferritin 86 ng/mL (15-150); Globulin 2.5 g/dL (1.3-4.6); Glucose 93 mg/dL (65-115); Iron 59 ug/dL (37-145); Osmolality Calculated 295 mOsm/kg (285-295); Potassium 3.7 mmol/L (3.5-5.1); Sodium 141 mmol/L (136-145); Total Iron Binding Capacity 245 mcg/dl; Total Protein 6.6 g/dL (6.6-8.7); Unsaturated Iron Binding 186 ug/dL (112-347); Uric Acid 2.7 mg/dL (2.4-5.7)
[2025-04-01 13:15] LABS: Slide Review Slide Review Perform
[2025-04-01 13:24] LABS: Vitamin B12 614 pg/mL (232-1245)
== END 2025-04-01 23:59 | disposition home or self-care (01) ==
PROVIDERS: PCP Nurse Practitioner Family; Visit Provider Internal Medicine Medical Oncology
DX: C91.10 Chronic lymphocytic leukemia of B-cell type not having achieved remission; R03.0 Elevated blood-pressure reading, without diagnosis of hypertension; R51.9 Headache, unspecified; E27.40 Unspecified adrenocortical insufficiency; Z79.899 Other long term (current) drug therapy; Z53.9 Procedure and treatment not carried out, unspecified reason
CPT/HCPCS: 36415; 70553; 80053; 82607; 82728; 82746; 83540; 83550; 83615; 84550; 85025; 99214

== ENCOUNTER 2025-04-28 08:46 | Emergency (ER) | payer MEDICARE, SELFPAY ==
--- OUTSIDE RECORDS SUMMARY | 2006-03-08 10:36 | XMS_ITS | Continuity of Care Document ---
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 Name Role Phone Unavailable Unavailable Unavailable Procedures Procedure Date No Charge Advance Directives Directive Yes / No Effective Date File Name No Information Encounters Encounter Description Practice Location Reason(s) For Visit Diagnoses Date Provider Providers Copied on Encounter [facility], [address], [id number], [place] tel:[phone] [facility] No Information No Information Family History Family Member Type Diagnosis Age At Onset No Information Payers Payer name Insurance type Covered constitution party ID Authoriza tion(s) No Information Social History Type Description Quantity Date Captured Comments Sex Female Smoking Status No Information Chief Complaint And Reason For Visit No Information Reason For Referral Reason For Referral No Information History Of Present Illness Encounter Date Complaint History Of Prese nt Illness No Information Functional Status Date Functional Assessmen t No Information Instructions Date Instruction Additional Infor mation No Information Assessments Type Assessment Date No Information Patient Care Teams Name Effective Dates (start - stop) Status Members No Information
[2025-04-28] VITALS (8 sets, daily range): BP systolic 112–205; BP diastolic 63–134; PULSE 67–93; RESP 16; TEMP 36.7; O2SAT 96–98; BMI 26.2
--- NOTE | 2025-04-28 09:08 | ECG_ITS ---
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
--- NOTE | 2025-04-28 09:15 | CT_ITS ---
WS: [id number] CT HEAD NONCONTRAST HISTORY: silva TECHNIQUE: Contiguous axial imaging performed through the brain. Bone and soft tissue windows. Sagittal and coronal reformats reviewed. All CT scans at [facility] use at least one of these dose optimization techniques: automated exposure control; mA and/or kV adjustment per patient size (includes targeted exams where dose is matched to clinical indication); or iterative reconstruction. DLP: 1015.18 mGy.cm COMPARISON: 12/12/2024 No acute intracranial hemorrhage, midline shift or mass effect. Mild symmetric atrophy. Moderate small vessel changes. Ventricles: Normal size with no hydrocephalus. Paranasal sinuses: As visualized are clear. Mastoid air cells: Well pneumatized. Calvarium and scalp: Skull is intact with no soft tissue edema or swelling. Extensive calcifications in the distal vertebral arteries to the foramen magnum. Moderate calcifications to the intracranial carotid arteries. CT/CT head wo con* [id number] IMPRESSION: 1. No acute intracranial hemorrhage or edema. 2. Mild atrophy with moderate small vessel changes. 3. Heavy calcific burden in the distal vertebral and carotid arteries.
--- NOTE | 2025-04-28 09:15 | XR_ITS ---
WS: [id number] Exam: XR chest 1V portable [id number] Date/Time of Exam: 04/28/2025 9:21 AM Reason For Exam: ams Comparison 03/22/2025. Lungs are fully inflated and clear. Normal cardiomediastinal silhouette and regional bony structures. No pleural effusions. Advanced DJD of both shoulders. XR/XR chest 1V portable [id number] IMPRESSION: 1. No acute cardiopulmonary finding.
--- NOTE | 2025-04-28 09:32 | W.ED.AMS ---
HPI - Altered Mental Status General: Chief Complaint: Altered Mental Status Stated Complaint: Hbp and passed out this morning Time Seen by Provider: 04/28/25 09:13 Source: patient Mode of arrival: ambulatory Limitations: no limitations History of Present Illness: 85-year-old female states that she has not felt well over the weekend. Does have a history of CLL states that since yesterday morning she has had some mild confusion and high blood pressures. She states she had had a syncopal event this morning when she had stood up where she had passed out for few seconds. States that she has this at times when she gets hypertensive. She denies any chest pain she denies any slurred speech or any one-sided weakness Related Data Home Medications ?Medication ?Instructions ?Recorded ?Confirmed acetaminophen 500 mg tablet 500 mg PO Q6H PRN Pain 03/13/25 04/28/25 vit A 300 mcg-C 200 mg-E 27 1 tab PO DAILY 03/15/25 04/28/25 mg-lutein 2 mg and minerals tablet (Healthy Eyes) hydrocortisone 10 mg tablet 10 mg PO QAM 03/22/25 04/28/25 hydrocortisone 5 mg tablet 5 mg PO .3PM 03/22/25 04/28/25 amlodipine 5 mg tablet 5 mg PO QPM 04/28/25 04/28/25 fludrocortisone 0.1 mg tablet 0.1 mg PO DAILY 04/28/25 04/28/25 hydralazine 25 mg tablet 25 mg PO DAILY 04/28/25 04/28/25 pravastatin 20 mg tablet 20 mg PO QPM 04/28/25 04/28/25 Previous Rx's ?Medication ?Instructions ?Recorded acyclovir 400 mg tablet 400 mg PO BID #60 tabs 10/01/24 duloxetine 20 mg capsule,delayed 20 mg PO QDAY #30 caps 10/01/24 release pantoprazole 40 mg tablet,delayed 40 mg PO DAILY #30 tabs 10/01/24 release pregabalin 50 mg capsule 50 mg PO DAILY #30 caps 02/12/25 carbamazepine 100 mg 100 mg PO DAILY #30 tabs 03/31/25 tablet,extended release,12 hr zanubrutinib 80 mg capsule 160 mg (2 x 80 mg) PO BID #120 caps 04/14/25 (Brukinsa) clonidine HCl 0.1 mg tablet 0.1 mg PO DAILY PRN hypertension 10/20/25 #60 tabs losartan 100 mg tablet 100 mg PO DAILY #90 tabs 04/21/25 Allergies Allergy/AdvReac Type Severity Reaction Status Date / Time niacin Allergy Severe ALGY-Difficulty Verified 04/28/25 08:16 Breathing Review of Systems Card: Reports: syncope Neuro: Reports: headache(s) PFSH ED PFSH: Medical History Female bladder prolapse CKD (chronic kidney disease) Hypothyroidism Resistant hypertension Accelerated essential hypertension Syncope and collapse Surgical History H/O arthroscopy of left knee Family History Denies family history of Diabetes Cancer Hypertension Stroke Social History Smoking and tobacco/nicotine status: never used tobacco/nicotine Alcohol intake: never Substance/Drug Use: never Additional social history: Patient is seen in the emergency department room 4. Her son Patrick is on speaker phone. Patient wants full code as discussed today 03/13/2025 with Mike Naylor MD Physical Exam Const: COMMON NORMALS: patient oriented x3 HENMT: COMMON NORMALS: normocephalic and atraumatic HEAD & SCALP: normocephalic and atraumatic Eye: COMMON NORMALS: Equal, round and reactive pupils present and conjunctivae normal CONJUNCTIVA: Yes conjunctivae normal PUPIL: Yes Equal, round and reactive pupils present Neck/C-Spine: COMMON NORMALS: full ROM and supple Chest: COMMONS NORMALS: normal inspection of the chest Resp: COMMON NORMALS: normal respiratory effort, No retractions, No use of accessory muscles and clear to auscultation bilaterally AUSCULTATION: clear to auscultation bilaterally Cardio: COMMON NORMALS: regular rate, regular rhythm and No murmurs present (Cardio) RATE: regular rate RHYTHM: regular rhythm GI: COMMON NORMALS: Normal to inspection, nondistended, normoactive bowel sounds present, Soft to palpation, non-tender and no masses PALPATION: Yes Soft to palpation Extremity: COMMON NORMALS: normal to inspection and full ROM Neuro: COMMON NORMALS: patient oriented x3, moves all extremities and no focal motor deficits Psych: COMMON NORMALS: mental status grossly normal, Normal thought process present and cooperative THOUGHT PROCESS: Normal thought process present Skin: COMMON NORMALS: no rashes or lesions noted and no wounds GENERAL SKIN EXAM: no rashes or lesions noted Course Vital Signs: Vital signs: Vital Signs Temperature 98.0 F 04/28/25 09:19 Pulse Rate 93 04/28/25 12:16 Respiratory Rate 16 04/28/25 12:16 Blood Pressure 112/63 04/28/25 12:16 Pulse Oximetry 96 04/28/25 12:16 Oxygen Delivery Me thod Room Air 04/28/25 11:30 MDM - Altered Mental Status Medical Decision Making Patient presents with hypertension along with a headache differential includes subarachnoid hemorrhage, stroke, acute infection. Patient also has some hypertension here blood pressure is much improved her headache is improving as well. States she has had chronic headaches since having CLL. She has had no confusion here she has no signs of stroke. CT showed no acute abnormalities no signs of subarachnoid hemorrhage here. EKG showed normal sinus rhythm heart rate [address] elevation QRS 101 QTc 419 did review her lab works which showed no acute abnormalities I did go over these findings with patient she does feel improved here I feel she is stable for discharge she has to follow-up with PCP and return if worsening she understands agrees to plan. Medical Records I reviewed the patient's medical records. Lab Data I reviewed the patient's lab results. 04/28/25 09:28 04/28/25 09:28 Radiology Impressions Chest X-Ray 04/28/25 09:15 IMPRESSION: 1. No acute cardiopulmonary finding. Head CT 04/28/25 09:15 IMPRESSION: 1. No acute intracranial hemorrhage or edema. 2. Mild atrophy with moderate small vessel changes. 3. Heavy calcific burden in the distal vertebral and carotid arteries. Laboratory Results WBC 5.54 10^3/uL (3.29-11.43) 04/28/25 09:28 RBC 3.65 10^6/uL (3.85-5.65) L 04/28/25 09:28 Hgb 11.20 g/dL (11.27-16.99) L 04/28/25 09:28 Hct 34.2 % (36-47) L 04/28/25 09:28 MCV 93.7 fl (85-98) 04/28/25 09: MCH 30.7 pg (27-33) 04/28/25 09: MCHC 32.7 g/dL (30-55) 04/28/25 09: RDW 14.8 % (12.1-15.1) 04/28/25 09: Plt Count 152 10^3/cmm (157-399) L 04/28/25: MPV 12.0 fL (7.4-10.4) H 04/28/25 09: Neut % (Auto) 71.1 % 04/28/25: Lymph % (Auto) 16.1 % 04/28/25: [place] % (Auto) 10.1 % 04/28/25: Eos % (Auto) 1.6 % 04/28/25 09: Baso % (Auto) 0.7 % 04/28/25: Neut # (Auto) 3.94 10^3/uL (1.8-7.7) 04/28/25 09: Lymph # (Auto) 0.9 10^3/uL (0.8-4.8) 04/28/25 09: [place] # (Auto) 0.6 10^3/uL (0.2-0.9) 04/28/25: Eos # (Auto) 0.1 10^3/uL (0.0-0.8) 04/28/25 09: Baso # (Auto) 0.0 10^3/uL (0.0-0.1) 04/28/25: Nucleated RBC % (auto) 0 % 04/28/25 09: Nucleated RBCs # 0.0 /100WBC 04/28/25: Sodium 139 mmol/L (136-145) 04/28/25 09: Potassium 3.8 mmol/L (3.5-5.1) 04/28/25 09: Chloride 101 mmol/L (98-107) 04/28/25 09: Carbon Dioxide 25 mmol/L (22-29) 04/28/25 09: Anion Gap 16.8 (5-19) 04/28/25 09: BUN 21 mg/dL (8-23) 04/28/25 09:28 Creatinine 0.8 mg/dL (0.5-0.9) 04/28/25 09:28 GFR Calculation Not Reportable 04/28/25 09: Glucose 83 mg/dL (65-115) 04/28/25 09:28 Calculated Osmolality 290 mOsm/kg (285-295) 04/28/25 09: Calcium 9.3 mg/dL (8.5-10.5) 04/28/25 09: Total Bilirubin 0.3 mg/dL (0.15-1.2) 04/28/25 09: AST 25 U/L (0-32) 04/28/25 09: ALT 26 U/L (0-33) 04/28/25 09: Alkaline Phosphatase 84 U/L (35-105) 04/28/25 09: Total Protein 6.2 g/dL (6.6-8.7) L 04/28/25 09: Albumin 4.1 g/dL (3.5-5.2) 04/28/25 09: Globulin 2.1 g/dL (1.3-4.6) 04/28/25 09:28 Urine Color Yellow (Yellow) 04/28/25 10:03 Urine Appearance Clear (CLEAR) 04/28/25 10:03 Urine pH 7.5 (5-7) 04/28/25 10:03 Ur Specific [place] 1.010 (1.005-1.030) 04/28/25 10:03 Urine Protein Negative (Negative) 04/28/25 10:03 Urine Glucose (UA) Negative (Normal) 04/28/25 10:03 Urine Ketones Negative (Negative) 04/28/25 10:03 Urine Blood Negative (Negative) 04/28/25 10:03 Urine Nitrate Negative (Negative) 04/28/25 10:03 Urine Bilirubin Negative (Negative) 04/28/25 10:03 Urine Urobilinogen 0.2 mg/dL (Negative) 04/28/25 10:03 Ur Leukocyte Esterase Trace (Negative) A 04/28/25 10:03 Urine RBC 0-2 /hpf (0-2) 04/28/25 10:03 Urine WBC 0-5 /hpf (0-5) 04/28/25 10:03 Ur Squamous Epith Cells 0-5 /hpf (0-5) 04/28/25 10:03 Amorphous Sediment Not Reportable 04/28/25 10:03 Urine Bacteria None seen /hpf (NONE) 04/28/25 10:03 Hyaline Casts 0.40 /lpf 04/28/25 10:03 All radiology interpretation(s) finalized by discharge EKG Data EKG 1: I personally reviewed and interpreted this EKG as follows: EKG interpretation date: 04/28/25 EKG interpretation time: 09:08 Interpretation: nsr hr [address] elevation qrs 101 qtc 419 Discharge Plan Discharge Patient Disposition: Home Clinical Impression: Hypertension, Headache Condition: Stable Prescriptions: No Action pantoprazole 40 mg tablet,delayed release (DR/EC) 40 mg PO DAILY Qty: 30 3RF duloxetine 20 mg capsule,delayed release(DR/EC) 20 mg PO QDAY Qty: 30 3RF acyclovir 400 mg tablet 400 mg PO BID Qty: 60 3RF losartan 100 mg tablet 100 mg PO DAILY Qty: 90 0RF clonidine HCl 0.1 mg tablet 0.1 mg PO DAILY PRN (Reason: hypertension) Qty: 60 0RF Rx Instructions: For Systolic >180 diastolic >100. pregabalin 50 mg capsule 50 mg PO DAILY Qty: 30 3RF carbamazepine 100 mg tablet extended release 12 hr 100 mg PO DAILY Qty: 30 3RF Brukinsa 80 mg capsule 160 mg PO BID Qty: 120 0RF hydralazine 25 mg tablet 25 mg PO DAILY fludrocortisone 0.1 mg tablet 0.1 mg PO DAILY amlodipine 5 mg tablet 5 mg PO QPM pravastatin 20 mg tablet 20 mg PO QPM acetaminophen 500 mg Tablet 500 mg PO Q6H PRN (Reason: Pain) Healthy Eyes 300 mcg-200 mg-27 mg-2 mg Tablet 1 tab PO DAILY Rx Instructions: administer after a meal hydrocortisone 5 mg tablet 5 mg PO .3PM hydrocortisone 10 mg tablet 10 mg PO QAM Discharge Orders: Discharge ED (Routine); Ordered 04/28/25 Ordered By: Tristan Melchor Referrals: Goldie Dominguez DO [Primary Care Provider, Family Practice] - 4-7 days Discharge Diet: Advance as tolerated Discharge Activity: Resume usual activity Patient Instructions: Hypertension (ED), General Headache (ED) Print Language: Macedonian Coding Level of Care Code ED Spa Technician for Chg Alison
[2025-04-28 09:45] LABS: Hematocrit 34.2 % (36-47); Hemoglobin 11.20 g/dL (11.27-16.99); Mean Corpuscular HGB Conc 32.7 g/dL (30-55); Mean Corpuscular Hemoglobin 30.7 pg (27-33); Mean Corpuscular Volume 93.7 fl (85-98); Nucleated Red Blood Cells % 0 %; Platelet Count 152 10^3/cmm (157-399); Red Blood Count 3.65 10^6/uL (3.85-5.65); White Blood Count 5.54 10^3/uL (3.29-11.43)
[2025-04-28] MEDS: hyDRALAzine 20 mg/mL INJ 1 mL 10 MG IVP ×2 (09:45→11:43)
[2025-04-28 10:02] LABS: Alanine Aminotransferase 26 U/L (0-33); Albumin Level 4.1 g/dL (3.5-5.2); Alkaline Phosphatase 84 U/L (35-105); Anion Gap 16.8 (5-19); Aspartate Amino Transferase 25 U/L (0-32); Blood Urea Nitrogen 21 mg/dL (8-23); Calcium 9.3 mg/dL (8.5-10.5); Carbon Dioxide 25 mmol/L (22-29); Chloride 101 mmol/L (98-107); Creatinine Clr Calc Pharmacy 49.5998; Globulin 2.1 g/dL (1.3-4.6); Glucose 83 mg/dL (65-115); Osmolality Calculated 290 mOsm/kg (285-295); Potassium 3.8 mmol/L (3.5-5.1); Sodium 139 mmol/L (136-145); Total Protein 6.2 g/dL (6.6-8.7)
[2025-04-28 10:06] LABS: Slide Review Slide Review Perform
[2025-04-28 10:11] LABS: Glucose Urine UA Negative (Normal); Nitrate Urine Negative (Negative); Specific Gravity, Urine 1.010 (1.005-1.030)
[2025-04-28 10:17] LABS: Add Urine Microscopic? YES
[2025-04-28] MEDS: morphine 4 mg/mL SDV 1 mL IVP (12:11)
[2025-04-28] MEDS: ondansetron 2 mg/ML SDV 2 mL 4 MG IVP (12:11)
== END 2025-04-28 12:16 | disposition home or self-care (01) ==
PROVIDERS: Emergency Provider Emergency Medicine; PCP Family Medicine
DX: R51.9 Headache, unspecified (principal); I12.9 Hypertensive chronic kidney disease with stage 1 through stage 4 chronic kidney disease, or unspecified chronic kidney disease; N18.9 Chronic kidney disease, unspecified
CPT/HCPCS: 36415; 70450; 71045; 80053; 81001; 85025; 93005; 96374; 96375; 96376; 99285; J0360; J1885; J2270; J2405

== ENCOUNTER 2025-04-28 12:57 | Observation (INO) | payer MEDICARE, SELFPAY ==
[2025-04-28] VITALS (8 sets, daily range): BP systolic 64–132; BP diastolic 3–70; PULSE 63–100; RESP 15–17; TEMP 36.7–37.7; O2SAT 95–100; BMI 26.2; BMI 25.8
--- NOTE | 2025-04-28 13:00 | ECG_ITS ---
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 Measurements Intervals [place] Rate: 61 P: 55 GA: 137 QRS: 55 QRSD: 90 T: 51 QT: 449 QTc: 454 Interpretive Statements SINUS RHYTHM Compared to ECG 04/28/2025 09:08:23 No significant changes Electronically Signed On 05-01-2025 08:33:01 CDT by Asa Romero M.D. [id number]
--- NOTE | 2025-04-28 13:10 | W.ED.AMS ---
HPI - Altered Mental Status General: Chief Complaint: Altered Mental Status Stated Complaint: Unresponsive Mode of arrival: ambulatory Limitations: altered mental status History of Present Illness: 85-year-old female seen earlier today for syncopal event also has chronic hypertension chronic headaches from CLL. Patient was given hydralazine here for her hypertension while she was here. Patient got in the car she did not have another and likely syncopal episodes currently altered. Patient will wake currently to painful stimuli but is hypotensive here now currently with blood pressure 75/39. She had no vomiting Related Data Home Medications ?Medication ?Instructions ?Recorded ?Confirmed acetaminophen 500 mg tablet 500 mg PO Q6H PRN Pain 03/13/25 04/28/25 vit A 300 mcg-C 200 mg-E 27 1 tab PO DAILY 03/15/25 04/28/25 mg-lutein 2 mg and minerals tablet (Healthy Eyes) hydrocortisone 10 mg tablet 10 mg PO QAM 03/22/25 04/28/25 hydrocortisone 5 mg tablet 5 mg PO .3PM 03/22/25 04/28/25 amlodipine 5 mg tablet 5 mg PO QPM 04/28/25 04/28/25 fludrocortisone 0.1 mg tablet 0.1 mg PO DAILY 04/28/25 04/28/25 hydralazine 25 mg tablet 25 mg PO DAILY 04/28/25 04/28/25 pravastatin 20 mg tablet 20 mg PO QPM 04/28/25 04/28/25 Previous Rx's ?Medication ?Instructions ?Recorded acyclovir 400 mg tablet 400 mg PO BID #60 tabs 10/01/24 duloxetine 20 mg capsule,delayed 20 mg PO QDAY #30 caps 10/01/24 release pantoprazole 40 mg tablet,delayed 40 mg PO DAILY #30 tabs 10/01/24 release pregabalin 50 mg capsule 50 mg PO DAILY #30 caps 02/12/25 carbamazepine 100 mg 100 mg PO DAILY #30 tabs 03/31/25 tablet,extended release,12 hr zanubrutinib 80 mg capsule 160 mg (2 x 80 mg) PO BID #120 caps 04/14/25 (Brukinsa) clonidine HCl 0.1 mg tablet 0.1 mg PO DAILY PRN hypertension 04/21/25 #60 tabs losartan 100 mg tablet 100 mg PO DAILY #90 tabs 04/21/25 Allergies Allergy/AdvReac Type Severity Reaction Status Date / Time niacin Allergy Severe ALGY-Difficulty Verified 04/28/25 08:16 Breathing PFSH ED PFS: Medical History (Updated 04/28/25 @ 14:51 by Tristan Melchor MD) Female bladder prolapse CKD (chronic kidney disease) Hypothyroidism Resistant hypertension Accelerated essential hypertension Syncope and collapse Surgical History H/O arthroscopy of left knee Family History Denies family history of Diabetes Cancer Hypertension Stroke Social History Smoking and tobacco/nicotine status: never used tobacco/nicotine Alcohol intake: never Substance/Drug Use: never Additional social history: Patient is seen in the emergency department room 4. Her son Patrick is on speaker phone. Patient wants full code as discussed today 03/13/2025 with Mike Naylor MD Physical Exam Const: COMMON NORMALS: negative for patient oriented x3 HENMT: COMMON NORMALS: normocephalic and atraumatic HEAD & SCALP: normocephalic and atraumatic Eye: COMMON NORMALS: Equal, round and reactive pupils present and EOMs intact bilaterally PUPIL: Yes Equal, round and reactive pupils present Neck/C-Spine: COMMON NORMALS: full ROM and supple Chest: COMMONS NORMALS: normal inspection of the chest and normal palpation of entire chest wall Resp: COMMON NORMALS: normal respiratory effort, No retractions, No use of accessory muscles and clear to auscultation bilaterally AUSCULTATION: clear to auscultation bilaterally Cardio: COMMON NORMALS: regular rate, regular rhythm and No murmurs present (Cardio) RATE: regular rate RHYTHM: regular rhythm GI: COMMON NORMALS: Normal to inspection, nondistended, normoactive bowel sounds present, Soft to palpation, non-tender and no masses PALPATION: Yes Soft to palpation Extremity: COMMON NORMALS: normal to inspection and full ROM Neuro: COMMON NORMALS: moves all extremities and no focal motor deficits; negative for patient oriented x3 Psych: COMMON NORMALS: cooperative Skin: COMMON NORMALS: no rashes or lesions noted and no wounds GENERAL SKIN EXAM: no rashes or lesions noted Course Vital Signs: Vital signs: Vital Signs Temperature 98.2 F 10/27/25 13:00 Pulse Rate 100 04/28/25 14:05 Respiratory Rate 16 04/28/25 14:05 Blood Pressure 132/61 04/28/25 14:05 Pulse Oximetry 99 04/28/25 14:05 Oxygen Delivery Me thod Room Air 04/28/25 14:05 MDM - Altered Mental Status Medical Decision Making Patient presents here with a syncopal event. Had seen her earlier today for syncope when she had been discharged from the hospital was on her way home she had not had another syncopal event. When she initially arrived she was hypotensive and altered her blood pressure here is improved and she is now at her baseline she still has a headache that is a chronic headache. She has no signs of subarachnoid hemorrhage here I did a CT angio of her head that was normal blood work here is again normal I did speak to Dr. Rodriguez and I will admit at this time she has had multiple syncopal events. I did go over her imaging EKG and labs with her and she understands agrees to plan. EKG shows normal sinus rhythm heart rate [address] elevation QRS 90 QTc 452. Medical Records I reviewed the patient's medical records. Lab Data I reviewed the patient's lab results. 04/28/25 13:31 04/28/25 13:31 Radiology Impressions Head/Neck CTA 04/28/25 13:24 IMPRESSION: 1. No high-grade cervical carotid artery stenosis. Mild atherosclerotic plaque. 2. Calcified plaque in the vertebral arteries through the foramen magnum, LEFT greater than RIGHT. No occlusion. 3. Intact [place]. No aneurysms or significant thrombus or occlusion identified. Laboratory Results WBC 7.96 10^3/uL (3.29-11.43) 04/28/25 13:31 RBC 3.26 10^6/uL (3.85-5.65) L 04/28/25 13:31 Hgb 10.50 g/dL (11.27-16.99) L 04/28/25 13:31 Hct 30.9 % (36-47) L 04/28/25 13:31 MCV 94.8 fl (85-98) 04/28/25 13:31 MCH 32.2 pg (27-33) 04/28/25 13:31 MCHC 34.0 g/dL (30-55) 04/28/25 13:31 RDW 14.9 % (12.1-15.1) 04/28/25 13:31 Plt Count 146 10^3/cmm (157-399) L 04/28/25 13:31 MPV 12.1 fL (7.4-10.4) H 04/28/25 13:31 Neut % (Auto) 68.0 % 04/28/25 13:31 Lymph % (Auto) 21.0 % 04/28/25 13:31 [place] % (Auto) 8.9 % 04/28/25 13:31 Eos % (Auto) 0.9 % 04/28/25 13:31 Baso % (Auto) 0.9 % 04/28/25 13:31 Neut # (Auto) 5.42 10^3/uL (1.8-7.7) 04/28/25 13:31 Lymph # (Auto) 1.7 10^3/uL (0.8-4.8) 04/28/25 13:31 [place]aney # (Auto) 0.7 10^3/uL (0.2-0.9) 04/28/25 13:31 Eos # (Auto) 0.1 10^3/uL (0.0-0.8) 04/28/25 13:31 Baso # (Auto) 0.1 10^3/uL (0.0-0.1) 04/28/25 13:31 Nucleated RBC % (auto) 0 % 04/28/25 13:31 Nucleated RBCs # 0.0 /100WBC 04/28/25 13:31 Sodium 141 mmol/L (136-145) 04/28/25 13:31 Potassium 3.6 mmol/L (3.5-5.1) 04/28/25 13:31 Chloride 103 mmol/L (98-107) 04/28/25 13:31 Carbon Dioxide 23 mmol/L (22-29) 04/28/25 13:31 Anion Gap 18.6 (5-19) 04/28/25 13:31 BUN 17 mg/dL (8-23) 04/28/25 13:31 Creatinine 0.9 mg/dL (0.5-0.9) 04/28/25 13:31 GFR Calculation Not Reportable 04/28/25 13:31 Glucose 105 mg/dL (65-115) 04/28/25 13:31 Calculated Osmolality 294 mOsm/kg (285-295) 04/28/25 13:31 Calcium 8.6 mg/dL (8.5-10.5) 04/28/25 13:31 Total Bilirubin 0.2 mg/dL (0.15-1.2) 04/28/25 13:31 AST 25 U/L (0-32) 04/28/25 13:31 ALT 25 U/L (0-33) 04/28/25 13:31 Alkaline Phosphatase 75 U/L (35-105) 04/28/25 13:31 Troponin T Baseline 13 ng/L (0-10) H 04/28/25 13:31 Total Protein 5.4 g/dL (6.6-8.7) L 04/28/25 13:31 Albumin 3.8 g/dL (3.5-5.2) 04/28/25 13:31 Globulin 1.6 g/dL (1.3-4.6) 04/28/25 13:31 All radiology interpretation(s) finalized by discharge EKG Data EKG 1: I personally reviewed and interpreted this EKG as follows: EKG interpretation date: 04/28/25 EKG interpretation time: 13:00 Interpretation: nsr hr [address] elevation qrs 90 qtc 452 Discharge Plan Discharge Patient Disposition: Admitted As Inpatient Clinical Impression: Syncope and collapse, Headache Condition: Stable Coding Level of Care Code ED [employer]
--- NOTE | 2025-04-28 13:18 | PC.PHAR ---
Addendum entered by Marah Sorensen 04/28/25 13:23: Pt always states she takes medications at 9am and 9pm Original Note: Pt discharged after med rec completed today and was readmitted shortly afterward. Pt stated she last took medications yesterday 04/27/25
--- NOTE | 2025-04-28 13:24 | CT_ITS ---
WS: [id number] CT ANGIOGRAM CEREBRAL AND CAROTID ARTERIES HISTORY: syncope TECHNIQUE: CT angiogram is performed of the carotid and cerebral arteries. During arterial injection imaging is obtained from the skull vertex to the aortic arch in 1.25 mm imaging. Coronal and sagittal reformats are submitted. Additional multi planar reformats of the carotid and cerebral arteries are submitted, MIP imaging also reviewed. NASCET criteria utilized. All CT scans at [facility] use at least one of these dose optimization techniques: automated exposure control; mA and/or kV adjustment per patient size (includes targeted exams where dose is matched to clinical indication); or iterative reconstruction. CONTRAST: Omnipaque 350; 100 mL IV. DLP: 1108.13 mGy.cm COMPARISON: None available. Noncontrast CT head: No change from earlier today. No intracranial hemorrhage. Mild atrophy with moderate small vessel disease. Carotid Angiogram: Right carotid: Common carotid artery: Arises normally from the innominate artery. No significant plaque or stenosis. Internal carotid artery: Mild plaque and intimal thickening. No stenosis. External carotid artery: Patent. Left carotid: Common carotid artery: Small amount of plaque at the origin from the arch. Small amount of plaque at the cervical carotid bifurcation but no high-grade stenosis. Internal carotid artery: No plaque or stenosis. External carotid artery: Patent. Right vertebral artery: Small amount of plaque in the foramen magnum. Left vertebral artery: Patent. Small amount of plaque causing mild stenosis in the LEFT vertebral artery at the foramen magnum. Subclavian arteries: No stenosis or significant abnormality. Upper thorax: Chronic emphysematous changes with pleural-based scarring and nodularity. Thyroid gland: Small bilateral thyroid nodules. Largest on the LEFT 6 mm. Osseous structures: Advanced degenerative cervical spondylosis. CEREBRAL ANGIOGRAM: Intracranial vertebral arteries: Vertebral arteries are both patent. Small amount of plaque through the foramen magnum, LEFT greater than RIGHT. Basilar artery: No significant stenosis or occlusion. No aneurysm. Intracranial Internal carotid arteries: Calcified plaque to the carotid cavernous sinuses. No occlusion. Middle cerebral arteries: Normal. Anterior cerebral arteries and ACOM: Normal. Posterior cerebral arteries and PCOM's: Normal. Dural venous sinuses are normally enhancing. Mastoid air cells: Normal. Paranasal sinuses: Normal. Calvarium: Normal. CT/CT angio headneck* [id number] IMPRESSION: 1. No high-grade cervical carotid artery stenosis. Mild atherosclerotic plaque . 2. Calcified plaque in the vertebral arteries through the foramen magnum, LEFT greater than RIGHT. No occlusion. 3. Intact [place]. No aneurysms or significant thrombus or occlusion identified.
--- NOTE | 2025-04-28 13:46 | PC.NURSE ---
PT is now awake and answering questions appropriately
[2025-04-28 13:52] LABS: Hematocrit 30.9 % (36-47); Hemoglobin 10.50 g/dL (11.27-16.99); Mean Corpuscular HGB Conc 34.0 g/dL (30-55); Mean Corpuscular Hemoglobin 32.2 pg (27-33); Mean Corpuscular Volume 94.8 fl (85-98); Nucleated Red Blood Cells % 0 %; Platelet Count 146 10^3/cmm (157-399); Red Blood Count 3.26 10^6/uL (3.85-5.65); White Blood Count 7.96 10^3/uL (3.29-11.43)
[2025-04-28] MEDS: iohexol 350 mg/mL 500 mL Btl (per mL) IV (14:03)
[2025-04-28 14:17] LABS: Alanine Aminotransferase 25 U/L (0-33); Albumin Level 3.8 g/dL (3.5-5.2); Alkaline Phosphatase 75 U/L (35-105); Anion Gap 18.6 (5-19); Aspartate Amino Transferase 25 U/L (0-32); Blood Urea Nitrogen 17 mg/dL (8-23); Calcium 8.6 mg/dL (8.5-10.5); Carbon Dioxide 23 mmol/L (22-29); Chloride 103 mmol/L (98-107); Creatinine Clr Calc Pharmacy 44.0888; Globulin 1.6 g/dL (1.3-4.6); Glucose 105 mg/dL (65-115); Osmolality Calculated 294 mOsm/kg (285-295); Potassium 3.6 mmol/L (3.5-5.1); Sodium 141 mmol/L (136-145); Total Protein 5.4 g/dL (6.6-8.7)
[2025-04-28 14:19] LABS: Troponin(5th) Baseline 13 ng/L (0-10)
--- NOTE | 2025-04-28 14:59 | ECG_ITS ---
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
[2025-04-28 15:42] LABS: Troponin 5 2HR 14.52 ng/L (0-10); Troponin 5 2HR Delta 1.52 ABS# (0-10)
--- NOTE | 2025-04-28 16:43 | ECG_ITS ---
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 Measurements Intervals [place] Rate: 93 P: 80 TX: 153 QRS: 67 QRSD: 90 T: 58 QT: 359 QTc: 448 Interpretive Statements SINUS RHYTHM MODERATE ST DEPRESSION [0.05+ mV ST DEPRESSION] Compared to ECG 04/28/2025 15:21:19 No significant changes Electronically Signed On 05-01-2025 08:38:40 CDT by Asa Romero M.D. [id number]
--- NOTE | 2025-04-28 17:26 | PM.HP ---
Providers/Chief Complaint Admitting Physician: Heidi Rodriguez MD Primary Care Provider: Goldie Dominguez DO Chief Complaint: Unresponsive History of Present Illness As per the previous notes and the patient Perlita Corey is a 85 year old female with past medical history of CLL with meningeal involvement managed by oncologist Dr. Sanchez, Accelerated and resistant type hypertension managed with multiple antihypertensive medications and history of multiple syncope and collapse episodes presented with syncope. He has been presented multiple times in the past where her workup was more or less unremarkable. The patient did not report any nausea vomiting, abdominal pain or diarrhea, any diaphoresis, chest pain or chest pressure or any concerning symptoms before collapsing apart from dizziness and blacking out. Rest of the review of system is unremarkable Review of Systems General: Reports: 10 or more systems reviewed and unremarkable except in HPI and below Medications/Allergies Home Medications ?Medication ?Instructions ?Recorded ?Confirmed ?Last Taken ?Type acyclovir 400 mg tablet 400 mg PO BID #60 tabs 10/01/24 04/28/25 04/27/25 Rx duloxetine 20 mg capsule,delayed 20 mg PO QDAY #30 caps 10/01/24 04/28/25 04/27/25 Rx release pantoprazole 40 mg tablet,delayed 40 mg PO DAILY #30 tabs 10/01/24 04/28/25 04/27/25 Rx release pregabalin 50 mg capsule 50 mg PO DAILY #30 caps 02/12/25 04/28/25 04/27/25 Rx acetaminophen 500 mg tablet 500 mg PO Q6H PRN Pain 03/13/25 04/28/25 Unknown History vit A 300 mcg-C 200 mg-E 27 1 tab PO DAILY 03/15/25 04/28/25 04/28/25 History mg-lutein 2 mg and minerals tablet (Healthy Eyes) hydrocortisone 10 mg tablet 10 mg PO QAM 03/22/25 04/28/25 04/27/25 History hydrocortisone 5 mg tablet 5 mg PO .3PM 03/22/25 04/28/25 04/27/25 History carbamazepine 100 mg 100 mg PO DAILY #30 tabs 03/31/25 04/28/25 04/27/25 Rx tablet,extended release,12 hr zanubrutinib 80 mg capsule 160 mg (2 x 80 mg) PO BID #120 caps 04/14/25 04/28/25 04/27/25 Rx (Brukinsa) clonidine HCl 0.1 mg tablet 0.1 mg PO DAILY PRN hypertension 04/21/25 04/28/25 Unknown Rx #60 tabs losartan 100 mg tablet 100 mg PO DAILY #90 tabs 04/21/25 04/28/25 04/27/25 Rx amlodipine 5 mg tablet 5 mg PO QPM 04/28/25 04/28/25 04/27/25 History fludrocortisone 0.1 mg tablet 0.1 mg PO DAILY 04/28/25 04/28/25 Unknown History hydralazine 25 mg tablet 25 mg PO DAILY 04/28/25 04/28/25 04/27/25 History pravastatin 20 mg tablet 20 mg PO QPM 04/28/25 04/28/25 04/27/25 History Allergies Allergy/AdvReac Type Severity Reaction Status Date / Time niacin Allergy Severe ALGY-Difficulty Verified 04/28/25 08:16 Breathing PFSH Acute PFSH: Medical History (Updated 04/28/25 @ 17:31 by Heidi Rodriguez MD) Female bladder prolapse CKD (chronic kidney disease) Hypothyroidism Resistant hypertension Accelerated essential hypertension Syncope and collapse Surgical History H/O arthroscopy of left knee Family History Denies family history of Diabetes Cancer Hypertension Stroke Social History Smoking and tobacco/nicotine status: never used tobacco/nicotine Alcohol intake: never Substance/Drug Use: never Additional social history: Patient is seen in the emergency department room 4. Her son Patrick is on speaker phone. Patient wants full code as discussed today 03/13/2025 with Mike Naylor MD Vitals/I&O/Wt Last Vital Signs Temp 98.2 F 04/28/25 13:00 Pulse 96 04/28/25 16:27 Resp 16 04/28/25 14:05 BP 124/70 04/28/25 16:27 Pulse Ox 96 04/28/25 16:27 O2 Del Method Room Air 04/28/25 14:05 04/28/25 04/28/25 04/28/25 06:59 14:59 22:59 Intake Total 1000 / 1000 Balance 1000 / 1000 Weight last 48 hrs Weight 58.06 kg Weight 58.967 kg Physical Exam Narrative: General: Alert and oriented, lying comfortably without any distress HEENT: Normocephalic, atraumatic, grossly unremarkable exam Cardio: normal rate rhythm, normal S1-S2 without any murmurs, rubs, or gallops and JVD normal Respiratory: normal vascular breathing on auscultation without any wheezes, stridor, rhonchi GI: Abdomen soft, nontender, nondistended, normoactive bowel sounds present all 4 quadrants, Neuro: intact cranial nerves motor and sensory and cerebellar/coordination function without any focal neurological deficit Behavior: Appropriate and cooperative Extremities: Adequate palpable pulses, no edema or cyanosis observed Skin: grossly unremarkable exam Data 04/28/25 13:31 04/28/25 13:31 A&P Assessment and plan 1. Syncope and collapse: Patient on multiple hypertensive medications currently hold There could be an element of orthostatic since the patient is having adrenal insufficiency as per the previous documentation and has been on fludrocortisone and hydrocortisone. To resume amlodipine 5 mg however hold rest of the medication Monitor orthostatics TSH recent echo in month ago showed EF of 60% with moderate TR and mild to moderate pulmonary valve regurg. For detailed imaging report refer to echo studies Telemetry monitoring Serial EKGs OT PT evaluation CT head and CTA was unremarkable, If all investigations unremarkable then consider 14-day Holter monitor with cardiology follow-up 2. Adrenal insufficiency: Continue home medication with fludrocortisone and hydrocortisone Reconciled and started 3. Headache: Adequate analgesia as needed 4. Gastroesophageal reflux disease without esophagitis: GI prophylaxis initiated 5. CLL (chronic lymphocytic leukemia): Currently stable and following with Dr. Sanchez Plan: VTE: Heparin twice daily PDMP PDMP Reviewed: Not Reviewed Attestations Medical Necessity Statement*: Patient will stay overnight for working up for syncope and further management Time Spent in Patient Care: 16 - 35 minutes (>than 50% of time spent in counselling and/or direct pt care on unit). Other Attestations: Patient condition has been discussed at length with the patient/family, I have independently reviewed the chart labs imaging/diagnostics/EKG. the goals of care and code status with the patient/family/NOK/legal business banking representative, and documented accordingly. The patient/family has been informed about the current condition and further plan of care. Agreed with the plan of care and understood without any language barrier. Every effort was made to ensure accuracy of basting cleaner. Any obvious errors or omissions should be clarified with the author of the document. Coding Level of Care Code 48607 Diagnoses Syncope and collapse R55 Adrenal insufficiency E27.40 Headache R51.9 Gastroesophageal reflux disease without esophagitis K21.9 Esophagitis presence: without esophagitis CLL (chronic lymphocytic leukemia) C91.10
[2025-04-28 18:15] LABS: Magnesium 1.9 mg/dL (1.7-2.3); Thyroid Stimulating Hormone 4.48 uIU/mL (0.27-4.20)
[2025-04-28] MEDS: heparin 5,000 unit/mL INJ 1 mL 5000 UNIT SUBCUT (18:18)
[2025-04-28 19:58] LABS: Troponin 5 6HR 40.76 ng/L (0-10)
[2025-04-28 20:08] LABS: Troponin 5 6HR Delta 27.76 ng/L (0-12)
--- NOTE | 2025-04-28 20:45 | ECG_ITS ---
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
[2025-04-28 23:02] LABS: Free T4 Free Thyroxine 1.29 ng/dL (0.82-1.77)
[2025-04-29] VITALS (7 sets, daily range): BP systolic 112–171; BP diastolic 57–85; PULSE 78–86; RESP 15–17; TEMP 36.7–37.2; O2SAT 92–96
[2025-04-29] MEDS: carBAMazepine XR (12 HR) 100 mg Tablet PO (04:38)
[2025-04-29] MEDS: heparin 5,000 unit/mL INJ 1 mL 5000 UNIT SUBCUT ×2 (04:40→16:07)
[2025-04-29 05:23] LABS: Alanine Aminotransferase 23 U/L (0-33); Albumin Level 3.6 g/dL (3.5-5.2); Alkaline Phosphatase 73 U/L (35-105); Aspartate Amino Transferase 25 U/L (0-32); Blood Urea Nitrogen 27 mg/dL (8-23); Calcium 8.7 mg/dL (8.5-10.5); Carbon Dioxide 24 mmol/L (22-29); Chloride 103 mmol/L (98-107); Creatinine Clr Calc Pharmacy 39.0695; Globulin 2.1 g/dL (1.3-4.6); Glucose 89 mg/dL (65-115); Osmolality Calculated 293 mOsm/kg (285-295); Sodium 139 mmol/L (136-145); Total Protein 5.7 g/dL (6.6-8.7)
[2025-04-29 05:28] LABS: Hematocrit 30.2 % (36-47); Hemoglobin 10.10 g/dL (11.27-16.99); Mean Corpuscular HGB Conc 33.4 g/dL (30-55); Mean Corpuscular Hemoglobin 31.0 pg (27-33); Mean Corpuscular Volume 92.6 fl (85-98); Nucleated Red Blood Cells % 0 %; Platelet Count 147 10^3/cmm (157-399); Red Blood Count 3.26 10^6/uL (3.85-5.65); White Blood Count 4.93 10^3/uL (3.29-11.43)
[2025-04-29 05:30] LABS: Anion Gap 16.1 (5-19); Potassium 4.1 mmol/L (3.5-5.1)
--- NOTE | 2025-04-29 14:24 | P.PN_ITS ---
Subjective 2 Subjective: Patient was seen in the morning, she did not complain of anything however further review of her chart and investigation did not reveal any obvious cause of dizziness. Been diagnosed in the previous notes as a case of adrenal insufficiency however after endocrinology review there was no indication to keep her on steroids. Even after having on steroids the patient fell and dizzy and collapse. 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, and has been on medication Zanubrutinib that could also further have some flushing and considering her leukemia and the site of involvement, syncope is likely related to it Vitals/I&O/Wt Last Vital Signs Temp 98.2 F 04/29/25 11:15 Pulse 78 04/29/25 11:15 Resp 16 04/29/25 11:15 BP 123/69 04/29/25 11:15 Pulse Ox 94 04/29/25 11:15 O2 Del Method Room Air 04/29/25 11:15 04/28/25 04/29/25 04/29/25 22:59 06:59 14:59 Intake Total 1000 / 1000 480 / 480 Balance 1000 / 1000 480 / 480 Weight last 48 hrs Weight 58.06 kg Weight 58.06 kg Weight 58.967 kg Physical Exam 2 Narrative: General: Alert and oriented, lying comfortably without any distress HEENT: Normocephalic, atraumatic, grossly unremarkable exam Cardio: normal rate rhythm, normal S1-S2 without any murmurs, rubs, or gallops and JVD normal Respiratory: normal vascular breathing on auscultation without any wheezes, stridor, rhonchi GI: Abdomen soft, nontender, nondistended, normoactive bowel sounds present all 4 quadrants, Neuro: intact cranial nerves motor and sensory and cerebellar/coordination function without any focal neurological deficit Behavior: Appropriate and cooperative Extremities: Adequate palpable pulses, no edema or cyanosis observed Skin: grossly unremarkable exam Data 04/29/25 05:19 04/29/25 04:29 A&P Assessment and plan 1. 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 She has been worked up thoroughly with brain imaging studies cortisol levels and also seen bias machine operator helper for possible adrenal insufficiency which was likely reason for her orthostatics. Considering her thorough workup. Syncope and collapse and no reason/evidence syncopal is highly likely related to her edema Continue to follow with the oncologist and to further discuss about her tumor and management with Zanubrutinib TSH mildly high and free T3 mildly low does not correlate with angela hyperthyroidism since T4 is normal recent echo in month ago showed EF of 60% with moderate TR and mild to moderate pulmonary valve regurg. For detailed imaging report refer to echo studies Telemetry monitoring Serial EKGs OT PT evaluation CT head and CTA was unremarkable, If all investigations unremarkable then consider 14-day Holter monitor with cardiology follow-up 2. Adrenal insufficiency: Patient saw the bias machine operator helper at that moment it was mentioned that based on her investigation this could be early adrenal insufficiency however there were no angela symptoms of adrenal insufficiency and less likely to be the cause of syncopal episode Currently patient is not taking actively fludrocortisone and hydrocortisone Of note the patient was having syncopal episodes even on this regimen therefore less likely to be effective Patient is currently not taking 3. Headache: Adequate analgesia as needed 4. Gastroesophageal reflux disease without esophagitis: GI prophylaxis initiated 5. CLL (chronic lymphocytic leukemia): Currently stable and following with Dr. Sanchez Plan: VTE: Heparin twice daily PDMP PDMP Reviewed: Not Reviewed Attestations 2 Medical Necessity Statement*: Patient will stay overnight for further OT PT evaluation for her orthostatics and management of orthostatic hypotension leading to syncope? Time Spent in Patient Care: 16 - 35 minutes (>than 50% of time sp ent in counselling and/or direct pt care on unit) . Other Attestations: Patient condition has been discussed at length with the patient/family, I have independently reviewed the chart labs imaging/diagnostics/EKG. the goals of care and code status with the patient/family/NOK/legal sales representative printing supplies, and documented accordingly. The management has been done according to the current clinical condition with respect to patient goals of care and based on recommendations/guidelines. The patient/family has been informed about the current condition and further plan of care. Agreed with the plan of care and understood without any language barrier. Every effort was made to ensure accuracy of grease worker. Any obvious errors or omissions should be clarified with the author of the document. Coding Level of Care Code Acute Code for Chg Fwd Diagnoses Syncope and collapse R55 Adrenal insufficiency E27.40 Headache R51.9 Gastroesophageal reflux disease without esophagitis K21.9 Esophagitis presence: without esophagitis CLL (chronic lymphocytic leukemia) C91.10
[2025-04-29] MEDS: ATORVASTATIN 20 MG TABLET PO (21:41)
[2025-04-30] VITALS: BP 174/79; PULSE 83; RESP 16; TEMP 36.8; O2SAT 96
[2025-04-30 04:00] VITALS: BP 133/68; PULSE 68; RESP 17; TEMP 36.8; O2SAT 94
[2025-04-30] MEDS: carBAMazepine XR (12 HR) 100 mg Tablet PO (05:06)
[2025-04-30] MEDS: heparin 5,000 unit/mL INJ 1 mL 5000 UNIT SUBCUT (05:07)
[2025-04-30 07:41] VITALS: BP 158/78; PULSE 85; RESP 16; TEMP 36.6; O2SAT 96
[2025-04-30 08:00] VITALS: BP 158/78; PULSE 85; RESP 16; TEMP 36.6
--- NOTE | 2025-04-30 11:13 | PM.DCS ---
Discharge Providers Date of Admission: 04/28/25 15:09 Date of Discharge: April 30, 2025 Attending Provider at Admission: Heidi Rodriguez MD Attending Provider at Discharge: Heidi Rodriguez MD Primary Care Provider: Goldie Dominguez DO Diagnoses at Discharge Discharge Diagnosis 1. Syncope and collapse: 2. Adrenal insufficiency: 3. Headache: 4. Gastroesophageal reflux disease without esophagitis: 5. CLL (chronic lymphocytic leukemia): Reason for Visit Reason for Visit: Unresponsive Brief History: As per the previous notes and the patient Perlita Corey is a 85 year old female with past medical history of CLL with meningeal involvement managed by oncologist Dr. Sanchez, Accelerated and resistant type hypertension managed with multiple antihypertensive medications and history of multiple syncope and collapse episodes presented with syncope. He has been presented multiple times in the past where her workup was more or less unremarkable. The patient did not report any nausea vomiting, abdominal pain or diarrhea, any diaphoresis, chest pain or chest pressure or any concerning symptoms before collapsing apart from dizziness and blacking out. Rest of the review of system is unremarkable Hospital Course Hospital Course the patient was kept in the hospital and further CTA did not show any significant concerning finding such stroke or high grade sterial stenosis ( for detailed report refer to the CTA). she has been admitted for the same reason since Aug 2024, and has been evaluated thoroughly and later found to have CLL involving her brain meninges and cervical spinal cord. She has been on Zanubrutinib and following with the oncologist. She had a recent echo one month ago, previous work up for adrenal insufficiency was also not peculiar for Adrenal insufficiency. She was kept on hydrocortisone and fludrocortisone but still she had a syncopal episode. A brain MRI was also done one month ago and stroke was ruled out. considering. she has been thoroughly worked up for syncope in the past. This admission, a part from CTA, her delta trop were mild high since she was mild hypotensive after orthostatic hypotension and the trop were related to mismatch and she was mild dehydrated. therefore her creat was 1. but overall no concerning cardiac symtoms and she overall improved, telemetry and serial EKGs did not show concerning changes. Discussed with the cardiology and likely related troponin leak secondary to changes in her blood pressure and kidney dysfunction. the patient was also informed about her medications to be reconciled as outpatient rito duloxetine, carbamezipine, pregabalin since she did not complain of any neuropathy or seizures?, she is on acyclovir likely prophylaxis however her counts are normal and informed to discuss it with her oncologist. Her hydralazine 25mg OD dose was discontinued since it can also lead to orthostatic hypotension. while education and counseling was provided for the rest of the medications. OT/PT also evaluated her and after establishing her stability, she was proceeded with the discharge. Plating Inspector referral provided for holter monitor post discharge and appropirate referral made with medications reconciliation. Patient condition has been discussed at length with the patient/family, I have independently reviewed the chart labs imaging/diagnostics/EKG. the goals of care and code status with the patient/family/NOK/legal sales representative gas service, and documented accordingly. The management has been done according to the current clinical condition with respect to patient goals of care and based on recommendations/guidelines. The patient/family has been informed about the current condition and further plan of care. Agreed with the plan of care and understood without any language barrier. Every effort was made to ensure accuracy of overage shortage and damage clerk. Any obvious errors or omissions should be clarified with the author of the document. Physical Exam Narrative: General: Alert and oriented, lying comfortably without any distress HEENT: Normocephalic, atraumatic, grossly unremarkable exam Cardio: normal rate rhythm, normal S1-S2 without any murmurs, rubs, or gallops and JVD normal Respiratory: normal vascular breathing on auscultation without any wheezes, stridor, rhonchi GI: Abdomen soft, nontender, nondistended, normoactive bowel sounds present all 4 quadrants, Neuro: intact cranial nerves motor and sensory and cerebellar/coordination function without any focal neurological deficit Behavior: Appropriate and cooperative Extremities: Adequate palpable pulses, no edema or cyanosis observed Skin: grossly unremarkable exam Discharge Data Studies Completed and Pending Completed Studies During Hospitalization Category Date Time Status CT angio head neck [CT angio headneck* [id number]] Cat Scan 04/28/25 13:24 Completed Stat Radiology Impressions Head/Neck CTA 04/28/25 13:24 IMPRESSION: 1. No high-grade cervical carotid artery stenosis. Mild atherosclerotic plaque. 2. Calcified plaque in the vertebral arteries through the foramen magnum, LEFT greater than RIGHT. No occlusion. 3. Intact [place] of [place]. No aneurysms or significant thrombus or occlusion identified. Laboratory Results WBC 4.93 10^3/uL (3.29-11.43) 04/29/25 05:19 Corrected WBC Cancelled 04/29/25 04:29 RBC 3.26 10^6/uL (3.85-5.65) L 04/29/25 05:19 Hgb 10.10 g/dL (11.27-16.99) L 04/29/25 05:19 Hct 30.2 % (36-47) L 04/29/25 05:19 MCV 92.6 fl (85-98) 04/29/25 05:19 MCH 31.0 pg (27-33) 04/29/25 05:19 MCHC 33.4 g/dL (30-55) 04/29/25 05:19 RDW 15.1 % (12.1-15.1) 04/29/25 05:19 Plt Count 147 10^3/cmm (157-399) L 04/29/25 05:19 MPV 11.6 fL (7.4-10.4) H 04/29/25 05:19 Gran % Cancelled 04/29/25 04:29 Neut % (Auto) 57.2 % 04/29/25 05:19 Lymph % (Auto) 26.0 % 04/29/25 05:19 [place] % (Auto) 14.0 % 04/29/25 05:19 Eos % (Auto) 1.8 % 04/29/25 05:19 Baso % (Auto) 0.8 % 04/29/25 05:19 Neut # (Auto) 2.82 10^3/uL (1.8-7.7) 04/29/25 05:19 Lymph # (Auto) 1.3 10^3/uL (0.8-4.8) 04/29/25 05:19 [place] # (Auto) 0.7 10^3/uL (0.2-0.9) 04/29/25 05:19 Eos # (Auto) 0.1 10^3/uL (0.0-0.8) 04/29/25 05:19 Baso # (Auto) 0.0 10^3/uL (0.0-0.1) 04/29/25 05:19 Absolute Gran (auto) Cancelled 04/29/25 04:29 Nucleated RBC % (auto) 0 % 04/29/25 05:19 Nucleated RBCs # 0.0 /100WBC 04/29/25 05:19 Sodium 139 mmol/L (136-145) 04/29/25 04:29 Potassium 4.1 mmol/L (3.5-5.1) 04/29/25 04:29 Chloride 103 mmol/L (98-107) 04/29/25 04:29 Carbon Dioxide 24 mmol/L (22-29) 04/29/25 04:29 Anion Gap 16.1 (5-19) 04/29/25 04:29 BUN 27 mg/dL (8-23) H 04/29/25 04:29 Creatinine 1.0 mg/dL (0.5-0.9) H 04/29/25 04:29 GFR Calculation Not Reportable 04/29/25 04:29 Glucose 89 mg/dL (65-115) 04/29/25 04:29 Calculated Osmolality 293 mOsm/kg (285-295) 04/29/25 04:29 Calcium 8.7 mg/dL (8.5-10.5) 04/29/25 04:29 Phosphorus 3.4 mg/dL (2.5-4.5) 04/28/25 15:17 Magnesium 1.9 mg/dL (1.7-2.3) 04/28/25 15:17 Total Bilirubin 0.2 mg/dL (0.15-1.2) 04/29/25 04:29 AST 25 U/L (0-32) 04/29/25 04:29 ALT 23 U/L (0-33) 04/29/25 04:29 Alkaline Phosphatase 73 U/L (35-105) 04/29/25 04:29 Troponin T Baseline 13 ng/L (0-10) H 04/28/25 13:31 Troponin T 120 Minute 14.52 ng/L (0-10) H 04/28/25 15:17 Delta Troponin T 1.52 ABS# (0-10) 04/28/25 15:17 Troponin T Hi Sens 6Hr 40.76 ng/L (0-10) H 04/28/25 19:05 Troponin T Hi Sens 6Hr Delta 27.76 ng/L (0-12) H* 04/28/25 19:05 Total Protein 5.7 g/dL (6.6-8.7) L 04/29/25 04:29 Albumin 3.6 g/dL (3.5-5.2) 04/29/25 04:29 Globulin 2.1 g/dL (1.3-4.6) 04/29/25 04:29 TSH 4.48 uIU/mL (0.27-4.20) H 04/28/25 15:17 Free T4 1.29 ng/dL (0.82-1.77) 04/28/25 19:05 Free T3 1.9 PG/ML (2.0-4.4) L 04/28/25 19:05 Vitals Last Vital Signs Temp 97.9 F 04/30/25 08:00 Pulse 85 04/30/25 08:00 Resp 16 04/30/25 08:00 BP 158/78 04/30/25 08:00 Pulse Ox 96 04/30/25 07:41 O2 Del Method Room Air 04/30/25 04:00 O2 Flow Rate 3 04/30/25 00:00 Discharge Plan Discharge Patient Disposition: Home Condition: Stable Prescriptions: Continued pantoprazole 40 mg tablet,delayed release (DR/EC) 40 mg PO DAILY Qty: 30 3RF duloxetine 20 mg capsule,delayed release(DR/EC) 20 mg PO QDAY Qty: 30 3RF acyclovir 400 mg tablet 400 mg PO BID Qty: 60 3RF losartan 100 mg tablet 100 mg PO DAILY Qty: 90 0RF clonidine HCl 0.1 mg tablet 0.1 mg PO DAILY PRN (Reason: hypertension) Qty: 60 0RF Rx Instructions: For Systolic >180 diastolic >100. pregabalin 50 mg capsule 50 mg PO DAILY Qty: 30 3RF carbamazepine 100 mg tablet extended release 12 hr 100 mg PO DAILY Qty: 30 3RF Bru[place] 80 mg capsule 160 mg PO BID Qty: 120 0RF hydralazine 25 mg tablet 25 mg PO DAILY amlodipine 5 mg tablet 5 mg PO QPM pravastatin 20 mg tablet 20 mg PO QPM acetaminophen 500 mg Tablet 500 mg PO Q6H PRN (Reason: Pain) Healthy Eyes 300 mcg-200 mg-27 mg-2 mg Tablet 1 tab PO DAILY Rx Instructions: administer after a meal Discontinued fludrocortisone 0.1 mg tablet 0.1 mg PO DAILY hydrocortisone 5 mg tablet 5 mg PO .3PM hydrocortisone 10 mg tablet 10 mg PO QAM Discharge Order = DC NOW: Discharge Order (Routine); Ordered 04/30/25 Ordered By: Heidi Rodriguez Other Ambulatory Orders: ECG holter monitor 14 Days (Routine) Timeframe: 1 Day Facility: [facility] - Location: Radiology Ordered By: Heidi Rodriguez Referrals: Goldie Dominguez DO [Primary Care Provider, Family Practice] - 05/02/25 12:45 pm Referral Note: patient on multiple neuropathy management medications such as carbamezipine, duloxetine and pregabalin and does not report any neuropathy instead having dizziness and collapse episodes. She has orthostatic hypotension as well and is on calcium channel blockers, to consider alternatives, hydralazine 25mg od was held and kept on amlodipine 5mg and losartan 100mg daily Need medications reconciliation and further healthcare maintenance post discharge follow up to optimise her condition Asa Romero MD [Physician, Cardiology] - 05/19/25 2:30 pm Discharge Diet: Advance as tolerated and Usual diet Discharge Activity: Resume usual activity, Increase activity as tolerated and Limit activity as instructed Patient Instructions: Syncope (GEN), Altered Mental Status (ED), Opioid Safety, Patient Portal & Mary Instructions Discharge Attestations Time Spent in Discharge Care*: greater than 30 min Specific Discharge Activities: educating patient, educating and/or supporting family/caregiver, discussing with pcp/other providers, discussing with caseworker protective services/social workers/dc planners, documenting/other paperwork and evaluating patient/reviewing data Status at Discharge: Cognitive status at discharge: cognitively intact, Behavioral status at discharge: cooperative, Functional status at discharge: uses cane/walker, Overall status at discharge: patient is back to baseline Quality Metrics Clinical Quality Measures [ No reported AMI, CVA or VTE this stay] Coding Level of Care Code 55529 Diagnoses Syncope and collapse R55 Adrenal insufficiency E27.40 Headache R51.9 Gastroesophageal reflux disease without esophagitis K21.9 Esophagitis presence: without esophagitis CLL (chronic lymphocytic leukemia) C91.10
[2025-04-30 12:36] VITALS: BP 147/70; PULSE 76; RESP 17; TEMP 36.7; O2SAT 93
[2025-04-30 12:45] LABS: Troponin T (5th) Once 41 ng/L (0-10)
--- NOTE | 2025-04-30 12:45 | PC.NURSE ---
Dr. Rodriguez stated patient could go without labs being complete due to patient having an appointment at 1300 and at 1245 labs are still not complete. Discharged discussed with patient to the best of this nurse's ability. Son and patient was ready to go due to an appointment. Son stated Dr. Rodriguez discussed medications with patient. This nurse went over stopped medications and follow up appointments. Dr. Rodriguez to call about labs if anything needs to be discussed.
[2025-04-30 12:48] VITALS: BP 147/70; PULSE 76; RESP 17; TEMP 36.6; O2SAT 93
[2025-04-30 13:00] LABS: Anion Gap 14.9 (5-19); Blood Urea Nitrogen 25 mg/dL (8-23); Calcium 9.0 mg/dL (8.5-10.5); Carbon Dioxide 25 mmol/L (22-29); Chloride 101 mmol/L (98-107); Creatinine Clr Calc Pharmacy 48.8369; Glucose 77 mg/dL (65-115); Osmolality Calculated 287 mOsm/kg (285-295); Potassium 3.9 mmol/L (3.5-5.1); Sodium 137 mmol/L (136-145)
[2025-04-30 13:15] LABS: Vitamin B12 517 pg/mL (232-1245)
== END 2025-04-30 12:50 | disposition home or self-care (01) ==
LOC: ER 14:51 → ER IP 15:10 → MEDSURG 15:50
PROVIDERS: Admitting Provider Student in an Organized Health Care Education/Training Program; Emergency Provider Emergency Medicine; PCP Family Medicine; Visit Provider Student in an Organized Health Care Education/Training Program
DX: R55 Syncope and collapse (principal); C91.10 Chronic lymphocytic leukemia of B-cell type not having achieved remission; E27.40 Unspecified adrenocortical insufficiency; R51.9 Headache, unspecified; K21.9 Gastro-esophageal reflux disease without esophagitis; I12.9 Hypertensive chronic kidney disease with stage 1 through stage 4 chronic kidney disease, or unspecified chronic kidney disease; N18.9 Chronic kidney disease, unspecified; E03.9 Hypothyroidism, unspecified
CPT/HCPCS: 36415; 70496; 70498; 80048; 80053; 82607; 83735; 84100; 84425; 84439; 84443; 84481; 84484; 85025; 93005; 96372; 97116; 97161; 97165; 99285; G0378; J1644; J7030; J8499; J9999

== ENCOUNTER 2025-05-06 13:19 | Oncology outpatient (recurring) (ONCR) | payer MEDICARE, SELFPAY | END 2025-06-01 23:59 | disposition home or self-care (01) | PROVIDERS: PCP Family Medicine; Visit Provider Internal Medicine Medical Oncology | DX: C91.10 Chronic lymphocytic leukemia of B-cell type not having achieved remission (principal); R03.0 Elevated blood-pressure reading, without diagnosis of hypertension; G96.198 Other disorders of meninges, not elsewhere classified; I10 Essential (primary) hypertension; Z79.899 Other long term (current) drug therapy | CPT/HCPCS: 99213 ==

== ENCOUNTER 2025-05-07 08:31 | Outpatient (CLI) | payer MEDICARE, SELFPAY ==
--- NOTE | 2025-05-07 | ECG_ITS ---
[facility] Test Date: 2025-05-07 Pat Name: Perlita Corey Department: Room: Gender: Female Rn Homecare: : 1940 Requested By: Goldie Dominguez Order Number: [id number] Angela MD: Pretty Rowe M.D. Interpretive Statements Lung unchanged pre/post procedure; Intraprocedure shortess of breath; Symptoms resoled by discharge PROCEDURE: At the baseline, the EKG revealed normal sinus rhythm with a normal ST Ts. The baseline heart was 70 bpm with a blood pressue of 160/60 mm of Hg Lexiscan was infused over a period of 20 seconds. A total of 0.4 milligrams of Lexiscan was infused. The stress phase was continued for a total of 5 minutes. Heart rate at the end of the stress phase was 84 bpm with a blood pressure 131/50 mm of Hg. The EKG at the peak infusion revealed no significant changes. Sestamibi was injected 20 seconds after the Lexiscan infusion. Heart rate at the end of the recovery phase was 84 bpm with a blood pressure of 135/50 mm of Hg. CONCLUSION: 1. No significant EKG changes with the LexiScan infusion 2. No LexiScan induced chest pain or cardiac arrhythmia 3. Normal blood pressure and heart rate response 4. Sestamibi/sestamibi perfusion scan pending; see separate report. Electronically Signed On 05-09-2025 20:27:20 AIRCRAFT COMMUNICATOR by Pretty Rowe M.D. [email or web address]
--- NOTE | 2025-05-07 08:39 | NMCV_ITS ---
NM raciel perf SPECT r/s* [id number] Perlita Corey Age: 85 Gender: F : 1940 Exam Date: 05/07/2025 09:41 Ordering Phys: Goldie Dominguez DO Technologist: RICHARDSON Grider Exam Location: [facility] Indications: cp STRESS TEST Please [facility] stress test [facility] for full findings IMAGE PROTOCOL Rest/Stress 1 Lexiscan Day Radiopharmaceutical Dose (mCi) Administration Site Administered by Rest: Tc-99m 10.3 IV RICHARDSON Grider Sestamibi Stress:Tc-99m 32.2 IV RICHARDSON Peña Sestamibi Rest: 07-May-2025 60 Discovery 630 Stress: 07-May-2025 30 Discovery 630 0.4mg Lexiscan. Supine position only as patient was unable to lay prone. SPECT RESULTS Technical Quality: Good Raw Data Analysis: Normal Image Corrections: No attenuation or motion correction applied Summed Stress Score: 0 Summed Rest Score: 1 Summed Difference Score: 0 PERFUSION FINDINGS Fairly uniform myocardial tracer uptake with no significant perfusion abnormalities FUNCTIONAL RESULTS (calculated via Gated SPECT) Stress Image LV EF (%): 67 Stress EDV (mL):79 TID: 0.98 Stress ESV (mL):26 FUNCTIONAL FINDINGS: Segmental wall motion analysis revealing no gross wall motion abnormalities IMPRESSIONS 1. Myocardial perfusion imaging revealing uniform myocardial tracer uptake with no significant perfusion abnormalities 2. Normal LV ejection fraction of 67%. 3. LV wall motion analysis revealing no gross wall motion abnormalities. 4. Normal LV volume Low probability for coronary ischemia, based on the above findings Dr Pretty Rowe MD FAC (Electronically Signed) Final Date: 07 May 2025 12:47 S
[2025-05-07 08:45] VITALS: BMI 25.8
[2025-05-07 10:43] VITALS: BP 135/59; PULSE 85
== END 2025-05-07 08:32 | disposition home or self-care (01) ==
LOC: CDL 08:34
PROVIDERS: PCP Family Medicine; Visit Provider Family Medicine
DX: R07.9 Chest pain, unspecified (principal)
CPT/HCPCS: 36415; 78452; 93017; 96374; A9500; J2785

== ENCOUNTER → 2025-05-19 14:26 | Outpatient (BNVA) | payer MEDICARE, SELFPAY | PROVIDERS: PCP Family Medicine; Visit Provider Internal Medicine Cardiovascular Disease | DX: I95.1 Orthostatic hypotension (principal); I10 Essential (primary) hypertension; E27.40 Unspecified adrenocortical insufficiency; I65.23 Occlusion and stenosis of bilateral carotid arteries; G96.198 Other disorders of meninges, not elsewhere classified | CPT/HCPCS: 99204 ==

== ENCOUNTER 2025-06-09 12:26 | Oncology outpatient (recurring) (ONCR) | payer MEDICARE, SELFPAY ==
[2025-06-09 12:45] LABS: Hematocrit 35.2 % (36-47); Hemoglobin 11.80 g/dL (11.27-16.99); Mean Corpuscular HGB Conc 33.5 g/dL (30-55); Mean Corpuscular Hemoglobin 31.6 pg (27-33); Mean Corpuscular Volume 94.4 fl (85-98); Nucleated Red Blood Cells % 0 %; Platelet Count 222 10^3/cmm (157-399); Red Blood Count 3.73 10^6/uL (3.85-5.65); White Blood Count 8.57 10^3/uL (3.29-11.43)
[2025-06-09 13:02] LABS: Alanine Aminotransferase 13 U/L (0-33); Albumin Level 4.3 g/dL (3.5-5.2); Alkaline Phosphatase 81 U/L (35-105); Anion Gap 10.0 (5-19); Aspartate Amino Transferase 25 U/L (0-32); Blood Urea Nitrogen 26 mg/dL (8-23); Calcium 9.4 mg/dL (8.5-10.5); Carbon Dioxide 31 mmol/L (22-29); Chloride 101 mmol/L (98-107); Globulin 2.4 g/dL (1.3-4.6); Glucose 108 mg/dL (65-115); Osmolality Calculated 291 mOsm/kg (285-295); Potassium 4.0 mmol/L (3.5-5.1); Sodium 138 mmol/L (136-145); Total Protein 6.7 g/dL (6.6-8.7)
[2025-06-09 13:39] LABS: Slide Review Slide Review Perform
== END 2025-07-02 23:59 | disposition home or self-care (01) ==
PROVIDERS: PCP Family Medicine; Visit Provider Internal Medicine Medical Oncology
DX: C91.10 Chronic lymphocytic leukemia of B-cell type not having achieved remission (principal); R03.0 Elevated blood-pressure reading, without diagnosis of hypertension; Z79.899 Other long term (current) drug therapy
CPT/HCPCS: 36415; 80053; 85025; 99214

== ENCOUNTER 2025-06-18 13:04 | Outpatient (CLI) | payer MEDICARE, SELFPAY ==
--- NOTE | 2025-06-18 13:17 | MM_ITS ---
WS: [id number] BILATERAL 3D TOMOSYNTHESIS DIGITAL SCREENING MAMMOGRAPHY WITH CAD CLINICAL INFORMATION: SCREENING HISTORY: Screening mammogram. No current complaints. COMPARISON: 2023 TECHNIQUE: Bilateral CC and MLO views. FINDINGS: Scattered fibroglandular densities bilaterally. No suspicious focal mass, asymmetry, calcifications, or architectural distortion. No evidence of malignancy. Vascular calcification. MM/MM scr tomosynthesis [id number] IMPRESSION: DENSITY: There are scattered areas of fibroglandular density. BI-RADS: 2 - Benign. FOLLOW UP: 1 Year Follow-up Recommend return to annual screening mammography.
== END 2025-06-18 13:05 | disposition home or self-care (01) ==
LOC: RAD 13:08
PROVIDERS: PCP Family Medicine; Visit Provider Family Medicine
DX: Z12.31 Encounter for screening mammogram for malignant neoplasm of breast (principal); R92.323 Mammographic fibroglandular density, bilateral breasts; R92.1 Mammographic calcification found on diagnostic imaging of breast
CPT/HCPCS: 77063; 77067

== ENCOUNTER 2025-06-24 14:30 | Outpatient (CLI) | payer MEDICARE, SELFPAY ==
[2025-06-24 15:43] LABS: Alanine Aminotransferase 9 U/L (0-33); Albumin Level 4.3 g/dL (3.5-5.2); Alkaline Phosphatase 79 U/L (35-105); Anion Gap 14.2 (5-19); Aspartate Amino Transferase 18 U/L (0-32); Blood Urea Nitrogen 29 mg/dL (8-23); Calcium 9.1 mg/dL (8.5-10.5); Carbon Dioxide 25 mmol/L (22-29); Chloride 104 mmol/L (98-107); Cholesterol 190 mg/dL (0-200); Globulin 2.3 g/dL (1.3-4.6); Glucose 83 mg/dL (65-115); HDL Cholesterol 74 mg/dL (60-100); Osmolality Calculated 293 mOsm/kg (285-295); Potassium 4.2 mmol/L (3.5-5.1); Sodium 139 mmol/L (136-145); Total Protein 6.6 g/dL (6.6-8.7); Triglycerides 38 mg/dL (0-150)
== END 2025-06-24 14:31 | disposition home or self-care (01) ==
LOC: LAB 14:32
PROVIDERS: PCP Family Medicine; Visit Provider Family Medicine
DX: E78.00 Pure hypercholesterolemia, unspecified (principal); Z11.1 Encounter for screening for respiratory tuberculosis; E11.9 Type 2 diabetes mellitus without complications
CPT/HCPCS: 80053; 80061; 86480